=== PATIENT | female | born 1960 | race Caucasian/White ===

== ENCOUNTER 2020-07-19 08:21 | Outpatient (REF) | payer MEDICARE, MEDICAID, SELFPAY ==
[2020-07-19 09:23] LABS: MANUAL DIFF FLAG NO
[2020-07-19 09:32] LABS: Basophils Percent Auto 0.4 % (0-2); Eosinophils Absolute Auto 0.1 X10*3/uL (0.0-0.4); Eosinophils Percent Auto 1.1 % (0-4); Hematocrit 37.7 % (37-47); Hemoglobin 12.8 g/dl (12.0-16.0); Imm Gran Abs Auto 0.02 X10*3/uL (0.00-0.03); Imm Gran Pct Auto 0.4 % (0.0-0.4); Lymphocytes Absolute Auto 1.7 X10*3/uL (1.2-4.9); Mean Corpuscular Hemoglobin 32.1 pg (27.0-33.0); Mean Corpuscular Volume 94.5 fL (80-98); Mean Platelet Volume 9.9 fL (9.4-12.3); Monocytes Absolute Auto 0.4 X10*3/uL (0.1-1.2); Monocytes Percent Auto 7.6 % (2-11); Neutrophils Absolute Auto 2.6 X10*3/uL (2.0-8.3); Neutrophils Percent Auto 55.5 % (45-73); Platelet Count 206 X10*3/uL (160-400); Red Blood Count 3.99 X10*6/uL (4.20-5.50); Red Cell Distribution Width 13.9 % (11.0-16.0); White Blood Count 4.7 X10*3/uL (4.8-10.8)
[2020-07-19 10:23] LABS: Alanine Aminotransferase 25 U/L (0-31); Albumin Level 4.4 g/dL (3.5-5.0); Alkaline Phosphatase 115 U/L (39-117); Anion Gap 13 (12-20); Aspartate Amino Transferase 29 U/L (5-31); Bilirubin Direct < 0.2 mg/dL (0.0-0.5); Bilirubin Total 0.3 mg/dL (0.0-1.0); Blood Urea Nitrogen 16 mg/dL (9-16); Calcium 9.3 mg/dL (8.4-10.2); Carbon Dioxide 26 mmol/L (22-29); Chloride 106 mmol/L (96-108); Estimated Glomerular Filt Rate > 60; Glucose Random 94 mg/dL (60-115); Potassium 4.3 mmol/L (3.3-5.1); Sodium 141 mmol/L (135-145); Total Protein 6.7 g/dL (6.5-8.0)
[2020-07-20 08:08] LABS: ~HepC Num1 0.06 S/CO (0.00-0.79); ~Hepatitis C Antibody Nonreactive (Nonreactive)
[2020-07-20 17:32] LABS: Absolute CD3 Count 1370 cells/uL (840-3060); Absolute CD4 Count 715 cells/uL (490-1740); Absolute CD8 Count 645 cells/uL (180-1170); Absolute Lymphocytes 1671 cells/uL (850-3900); CD4 CD8 Ratio 1.11 (0.86-5.00); Percent CD3 Cells 82 % (57-85); Percent CD4 Cells 43 % (30-61); Percent CD8 Cells 39 % (12-42)
[2020-07-21 15:22] LABS: HIV RNA PCR Qn Copies 7090 copies/mL (NOT DETECTED); HIV RNA PCR Qn Log Copies 3.85 (NOT DETECTED)
== END 2020-07-19 08:22 | disposition home or self-care (01) ==
LOC: HO.LAB 08:21
PROVIDERS: PCP Internal Medicine; Visit Provider Internal Medicine
DX: Z21 Asymptomatic human immunodeficiency virus [HIV] infection status (principal)
CPT/HCPCS: 36415; 80048; 80076; 85025; 86359; 86360; 86803; 87536

== ENCOUNTER → 2020-08-15 09:42 | Outpatient (BNVA) | payer MEDICARE, MEDICAID, SELFPAY | PROVIDERS: Visit Provider Internal Medicine | DX: B20 Human immunodeficiency virus [HIV] disease (principal) | CPT/HCPCS: 99212 ==

== ENCOUNTER 2020-11-08 09:48 | Outpatient (REF) | payer MEDICARE, MEDICAID, SELFPAY ==
[2020-11-09 15:06] LABS: Absolute CD3 Count 1794 cells/uL (840-3060); Absolute CD4 Count 923 cells/uL (490-1740); Absolute CD8 Count 854 cells/uL (180-1170); Absolute Lymphocytes 2285 cells/uL (850-3900); CD4 CD8 Ratio 1.08 (0.86-5.00); Percent CD3 Cells 79 % (57-85); Percent CD4 Cells 40 % (30-61); Percent CD8 Cells 37 % (12-42)
[2020-11-16 19:46] LABS: HIV RNA PCR Qn Copies 26 Copies/mL; HIV RNA PCR Qn Log Copies 1.42 Log cps/mL
== END 2020-11-08 09:49 | disposition home or self-care (01) ==
LOC: HO.LAB 09:48
PROVIDERS: PCP Internal Medicine; Visit Provider Internal Medicine
DX: B20 Human immunodeficiency virus [HIV] disease (principal)
CPT/HCPCS: 36415; 86359; 86360; 87536

== ENCOUNTER → 2020-11-14 10:27 | Outpatient (BNVA) | payer MEDICARE, MEDICAID, SELFPAY | PROVIDERS: PCP Internal Medicine; Visit Provider Internal Medicine | DX: B20 Human immunodeficiency virus [HIV] disease (principal) | CPT/HCPCS: 99212 ==

== ENCOUNTER 2021-05-13 10:43 | Outpatient (REF) | payer MEDICARE, MEDICAID, SELFPAY ==
[2021-05-14 11:05] LABS: Absolute CD3 Count 1395 cells/uL (840-3060); Absolute CD4 Count 795 cells/uL (490-1740); Absolute CD8 Count 594 cells/uL (180-1170); Absolute Lymphocytes 1815 cells/uL (850-3900); CD4 CD8 Ratio 1.34 (0.86-5.00); Percent CD3 Cells 77 % (57-85); Percent CD4 Cells 44 % (30-61); Percent CD8 Cells 33 % (12-42)
[2021-05-17 14:26] LABS: HIV RNA PCR Qn Copies <20 NOT DETECTED copies/mL (NOT DETECTED); HIV RNA PCR Qn Log Copies <1.30 NOT DETECTED (NOT DETECTED)
== END 2021-05-13 10:44 | disposition home or self-care (01) ==
LOC: HO.LAB 10:43
PROVIDERS: PCP Internal Medicine; Visit Provider Internal Medicine
DX: B20 Human immunodeficiency virus [HIV] disease (principal)
CPT/HCPCS: 36415; 86359; 86360; 87536

== ENCOUNTER → 2021-05-29 10:44 | Outpatient (BNVA) | payer MEDICARE, MEDICAID, SELFPAY | PROVIDERS: PCP Internal Medicine; Visit Provider Internal Medicine | DX: B20 Human immunodeficiency virus [HIV] disease (principal); E78.00 Pure hypercholesterolemia, unspecified | CPT/HCPCS: 99212 ==

== ENCOUNTER 2021-07-20 09:47 | Outpatient (REF) | payer MEDICARE, MEDICAID, SELFPAY ==
--- NOTE | ~2021-07-20 | MM_ITS ---
EXAMINATION: MM SCREENING DIGITAL BREAST TOMOSYNTHESIS, BILATERAL CLINICAL INFORMATION: Screening. Asymptomatic. The lifetime risk of breast cancer based on the Tyrer-Cuzick Model is 5%. COMPARISON: Mammography: 02/23/2019, 10/13/2017, 09/24/2016 TECHNIQUE: Digital breast tomosynthesis is performed in both the craniocaudal and mediolateral oblique views along with computer-aided detection (CAD). Synthesized 2D images are generated from the tomosynthesis. FINDINGS: The breasts are heterogeneously dense, which may obscure small masses (ACR BI-RADS breast composition Category c). Breast tissue composition borders on extremely dense. Parenchymal pattern is similar to prior studies. There is no developing density or interval mass or abnormal calcifications. The axilla and skin contours are unremarkable. No significant changes. MM/MM tomosynthesis screening BI IMPRESSION: No mammographic evidence of malignancy. ASSESSMENT: BI-RADS 1: Negative RECOMMENDATION: Routine annual mammography screening. This patient's information was entered into a reminder system with a target due date for their next mammogram.
== END 2021-07-20 09:48 | disposition home or self-care (01) ==
LOC: HO.MAMMO 09:47
PROVIDERS: Visit Provider Internal Medicine
DX: Z12.31 Encounter for screening mammogram for malignant neoplasm of breast (principal)
CPT/HCPCS: 77063; 77067

== ENCOUNTER 2021-10-25 07:11 | Outpatient (REF) | payer MEDICARE, MEDICAID, SELFPAY ==
--- NOTE | ~2021-10-25 | XR_ITS ---
EXAMINATION: XR SHOULDER, LEFT CLINICAL INFORMATION: Pain. COMPARISON: None TECHNIQUE: AP neutral, scapular Y, and axillary views of the left shoulder. FINDINGS: The bones and soft tissues are normal. No fracture. Glenohumeral and acromioclavicular alignment is anatomic with normal joint space. No abnormal soft tissue calcifications. XR/XR shoulder LT min 2V IMPRESSION: Normal left shoulder.
== END 2021-10-25 07:12 | disposition home or self-care (01) ==
LOC: HO.HOSX 07:11
PROVIDERS: Visit Provider Physician Assistant
DX: M75.22 Bicipital tendinitis, left shoulder (principal)
CPT/HCPCS: 20610; 73030; 99202; J1040

== ENCOUNTER 2021-11-13 10:08 | Outpatient (REF) | payer MEDICARE, MEDICAID, SELFPAY ==
[2021-11-13 12:09] LABS: Alanine Aminotransferase 16 U/L (0-31); Albumin Level 4.5 g/dL (3.5-5.0); Alkaline Phosphatase 101 U/L (39-117); Aspartate Amino Transferase 22 U/L (5-31); Bilirubin Direct 0.2 mg/dL (0.0-0.5); Bilirubin Total 0.5 mg/dL (0.0-1.0); Total Protein 6.9 g/dL (6.5-8.0)
[2021-11-15 12:56] LABS: Absolute CD3 Count 1831 cells/uL (840-3060); Absolute CD4 Count 1097 cells/uL (490-1740); Absolute CD8 Count 726 cells/uL (180-1170); Absolute Lymphocytes 2368 cells/uL (850-3900); CD4 CD8 Ratio 1.51 (0.86-5.00); Percent CD3 Cells 77 % (57-85); Percent CD4 Cells 46 % (30-61); Percent CD8 Cells 31 % (12-42)
[2021-11-15 15:52] LABS: HIV RNA PCR Qn Copies NOT DETECTED copies/mL (NOT DETECTED); HIV RNA PCR Qn Log Copies NOT DETECTED (NOT DETECTED)
== END 2021-11-13 10:09 | disposition home or self-care (01) ==
LOC: HO.LAB 10:08
PROVIDERS: PCP Internal Medicine; Visit Provider Internal Medicine
DX: B20 Human immunodeficiency virus [HIV] disease (principal)
CPT/HCPCS: 36415; 80076; 86359; 86360; 87536

== ENCOUNTER → 2021-11-27 10:31 | Outpatient (BNVA) | payer MEDICARE, MEDICAID, SELFPAY | PROVIDERS: Visit Provider Internal Medicine | DX: B20 Human immunodeficiency virus [HIV] disease (principal); Z79.899 Other long term (current) drug therapy | CPT/HCPCS: 99212 ==

== ENCOUNTER 2021-12-13 09:00 | Outpatient (RCR) | payer MEDICARE, MEDICAID, SELFPAY ==
--- NOTE | 2021-10-28 11:52 | MHC.PT.EP ---
[facility] [place] Office [place] Office [place] Office [address] Raji Toscano [address] [phone] F: [phone] F: [phone] F: [phone] F: [phone] Physical Therapy Plan of Care Date of Evaluation: Date of Surgery: N/A Diagnosis: Pain in left shoulder Assessment: Tabatha is a 61 yo F referred to PT for Pain in left shoulder. She is currently unemployed but does a lot of yard work around the house and tries limiting how often she uses her L arm. She is unable to reach overhead. Her impairments include TTP over L bicep tendon, gross weakness of L shoulder muscles along with limited ROM and notable deviations in posture. These impairments limit her with functional activities. She would benefit from skilled PT to address the aforementioned impairments and improve tolerance to functional activities. Frequency and Duration: The patient will be seen 2/week for 6 weeks Short Term Goals: Patient will demonstrate a 25% increase in ROM to improve to increase functional capabilities in 3 weeks. Patient will demonstrate an increase in postural awareness to decrease tension on shoulder in 3 weeks. 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 Patient will demonstrate a 1/2 grade increase in shoulder strength to promote ability to perform functional activities without pain in 6 weeks. Treatment Plan: Modalities to reduce pain, spasms and effusion. Manual therapy to restore motion and function. Therapeutic exercise to improve strength and flexibility. Neuromuscular re-education for posture and balance. Therapeutic activities to return to functional activities of daily living. Electronically signed by: Nika Pickering PT DPT Please sign and return to therapist. Thank you for your referral.
--- NOTE | 2021-12-13 15:12 | MHC.PT.DC ---
[facility] [place] Office [place] Office [place] Office [address] Raji Toscano 140 [facility] [phone] F: [phone] F: [phone] F: [phone] F: [phone] Physical Therapy Discharge Report Diagnosis: Pain in left shoulder Date of Surgery: N/A Date of Evaluation: 10/28/21 Date of Discharge: 12/13/21 Treatments to Date: 12 Cancellations to Date: No Shows to Date: Discharge Status: Achieved Goals Improved Function Independent with HEP Discharge Summary: Tabatha has made significant improvements and has achieved all goals set for her. She is therefore being from PT. Electronically signed by: Nika Pickering PT DPT Please sign and return to therapist. Thank you for your referral.
== END 2021-12-13 15:13 | disposition home or self-care (01) ==
LOC: HO.PT 09:00
PROVIDERS: PCP Internal Medicine; Visit Provider Internal Medicine
DX: M25.512 Pain in left shoulder (principal)
CPT/HCPCS: 97110; 97112; 97140; 97161

== ENCOUNTER 2021-12-31 08:12 | Outpatient (REF) | payer MEDICARE, MEDICAID, SELFPAY ==
--- NOTE | ~2021-12-31 | MM_ITS ---
EXAMINATION: BONE DENSITOMETRY CLINICAL INDICATION: Age-related osteoporosis without current pathological fracture. COMPARISON: Previous BD dated 11/29/2019 and baseline BD dated 09/25/2006. TECHNIQUE: Using a [employer]us DXA System (software version: 13.1) manufactured by [employer], dual-energy x-ray absorptiometry was performed of the lumbar spine and left hip. The images are of good technical quality. Summary results are attached. FINDINGS: AP SPINE L1-L4: Current: BMD 0.780 g/cm2, Z-score -2.0, T-score -3.3, osteoporosis, 2.5% increase from previous, 5.7% decrease from baseline (<5% change is not significant). Prior: BMD 0.761 g/cm2. Baseline: BMD 0.827 g/cm2. LEFT FEMUR, NECK: Current: BMD 0.723 g/cm2, Z-score -1.0, T-score -2.3, osteopenia. Prior: BMD 0.692 g/cm2. Baseline: BMD 0.803 g/cm2. LEFT FEMUR, TOTAL: Current: BMD 0.766 g/cm2, Z-score -0.9, T-score -1.9, osteopenia, 1.1% increase from previous, 5.0% decrease from baseline (<5% change is not significant). Prior: BMD 0.758 g/cm2. Baseline: BMD 0.806 g/cm2. IDENTIFIED RISK FACTORS: Osteoporosis. Current smoker. Secondary osteoporosis (intestinal or bowel disease, early menopause). HISTORY OF FRACTURE: None listed. MEDICATIONS: None listed. MM/XR DEXA axial skeleton IMPRESSION: 1. DIAGNOSIS: Osteoporosis based on the lowest T-score value of -3.3 in the lumbar spine applying World Health Organization criteria. 2. 10-YEAR FRACTURE RISK PREDICTION, FRAX: According to the guidelines, FRAX calculation should only be performed on patients in the osteopenia bone density category. Therefore, FRAX was not performed on this patient. 3. Treatment Recommendations: NOF guidelines recommend consideration for treatment in postmenopausal women and men age 50 and older presenting with the following: -A hip or vertebral (clinical or morphometric) fracture. -T-score less than or equal to -2.5 at the femoral neck or spine after appropriate evaluation to exclude secondary causes. -Low bone mass at the hip or spine and a 10-year fracture probability by FRAX of greater than or equal to 3% for hip fracture or greater than or equal to 20% for major osteoporotic fracture based on the [place] adapted WHO algorithm. 4. Other Recommendations: All treatment decisions require clinical judgment and consideration of individual patient factors, including patient preferences, comorbidities, previous drug use, risk factors not captured in the FRAX model (e.g. frailty, falls, vitamin D deficiency, increased bone turnover, interval significant decline in bone density) and possible under or overestimation of fracture risk by FRAX. Additional medical evaluation for secondary cause of low bone mineral density may be appropriate. FUTURE SCAN RECOMMENDATION: People with diagnosed cases of osteoporosis or at high risk for fracture should have regular bone mineral density tests. For patients eligible for Medicare, routine testing is allowed once every 2 years. The testing frequency can be increased to one year for patients who have rapidly progressing disease, those who are receiving or discontinuing medical therapy to restore bone mass, or have additional risk factors.
== END 2021-12-31 08:13 | disposition home or self-care (01) ==
LOC: HO.MAMMO 08:12
PROVIDERS: PCP Internal Medicine; Visit Provider Internal Medicine
DX: M81.0 Age-related osteoporosis without current pathological fracture (principal)
CPT/HCPCS: 77080

== ENCOUNTER 2022-01-07 08:31 | Outpatient (REF) | payer MEDICARE, MEDICAID, SELFPAY ==
[2022-01-07 08:52] LABS: MANUAL DIFF FLAG NO
[2022-01-07 09:12] LABS: Basophils Percent Auto 0.7 % (0-2); Eosinophils Absolute Auto 0.1 X10*3/uL (0.0-0.4); Eosinophils Percent Auto 1.1 % (0-4); Imm Gran Abs Auto 0.01 X10*3/uL (0.00-0.03); Imm Gran Pct Auto 0.2 % (0.0-0.4); Lymphocytes Absolute Auto 2.1 X10*3/uL (1.2-4.9); Mean Corpuscular HGB Conc 33.3 g/dl (31.0-35.0); Mean Corpuscular Volume 99.1 fL (80.0-98.0); Mean Platelet Volume 9.4 fL (9.4-12.3); Monocytes Absolute Auto 0.4 X10*3/uL (0.1-1.2); Neutrophils Absolute Auto 2.8 x10*3/uL (2.0-8.3); Platelet Count 292 X10*3/uL (160-400); Red Blood Count 4.54 X10*6/uL (4.20-5.50); Red Cell Distribution Width 12.7 % (11.0-16.0); White Blood Count 5.4 X10*3/uL (4.8-10.8)
[2022-01-07 09:47] LABS: Alanine Aminotransferase 14 U/L (0-31); Albumin Level 4.7 g/dL (3.5-5.0); Alkaline Phosphatase 110 U/L (39-117); Anion Gap 14 (12-20); Aspartate Amino Transferase 20 U/L (5-31); Bilirubin Total 0.5 mg/dL (0.0-1.0); Blood Urea Nitrogen 15 mg/dL (9-16); Carbon Dioxide 29 mmol/L (22-29); Chloride 101 mmol/L (96-108); Cholesterol 268 mg/dL; Estimated Glomerular Filt Rate 55; Glucose Random 105 mg/dL (60-115); HDL Cholesterol 60 mg/dL; LDL Cholesterol Calculated 192 mg/dl; Potassium 5.2 mmol/L (3.3-5.1); Sodium 139 mmol/L (135-145); Total Protein 7.3 g/dL (6.5-8.0); Triglycerides 84 mg/dL
[2022-01-07 09:58] LABS: Free T4 (Free Thyroxine) 1.08 ng/dL (0.71-1.85); Thyroid Stimulating Hormone 0.81 uIU/mL (0.32-4.0); Vitamin D 25-OH Total 29.2 ng/mL (>30)
[2022-01-07 10:15] LABS: Folate 10.3 ng/mL (> or = 4.0); Vitamin B12 316 pg/mL (200-900)
== END 2022-01-07 08:32 | disposition home or self-care (01) ==
LOC: HO.LAB 08:31
PROVIDERS: PCP Internal Medicine; Visit Provider Internal Medicine
DX: E78.00 Pure hypercholesterolemia, unspecified (principal)
CPT/HCPCS: 36415; 80053; 80061; 82306; 82607; 82746; 84439; 84443; 85025

== ENCOUNTER 2022-02-05 09:46 | Outpatient (REF) | payer MEDICARE, MEDICAID, SELFPAY ==
--- NOTE | ~2022-02-05 | US_ITS ---
EXAMINATION: US RETROPERITONEAL LIMITED (AORTA) CLINICAL INFORMATION: Family history of ischemic heart disease. COMPARISON: Ultrasound aorta 06/02/2011. TECHNIQUE: Venegas-scale, color Doppler and spectral Doppler evaluation of the abdominal aorta. FINDINGS: There is atherosclerotic disease. The measurements of the aorta in maximum AP and transverse dimensions respectively are as follows: Proximal: 2.1 x 2.3 cm. Mid: 1.8 x 2.0 cm. Distal: 1.5 x 1.5 cm. PSV: 99 cm/s. The measurements of the common iliac arteries in maximum AP and TRV dimensions are as follows: Right Common Iliac Artery: 1.1 x 1.3 cm. Left Common Iliac Artery: 1.2 x 1.1 cm. US/US abdominal aortic aneurysm IMPRESSION: No abdominal aortic and iliac aneurysm.
== END 2022-02-05 09:47 | disposition home or self-care (01) ==
LOC: HO.US 09:46
PROVIDERS: Visit Provider Internal Medicine
DX: Z13.6 Encounter for screening for cardiovascular disorders (principal); Z82.49 Family history of ischemic heart disease and other diseases of the circulatory system
CPT/HCPCS: 76706

== ENCOUNTER 2022-05-15 10:43 | Outpatient (REF) | payer MEDICARE, MEDICAID, SELFPAY ==
[2022-05-16 14:08] LABS: HIV RNA PCR Qn Copies NOT DETECTED copies/mL (NOT DETECTED); HIV RNA PCR Qn Log Copies NOT DETECTED (NOT DETECTED)
[2022-05-17 12:49] LABS: Absolute CD3 Count 2101 cells/uL (840-3060); Absolute CD4 Count 1132 cells/uL (490-1740); Absolute CD8 Count 968 cells/uL (180-1170); Absolute Lymphocytes 2742 cells/uL (850-3900); CD4 CD8 Ratio 1.17 (0.86-5.00); Percent CD3 Cells 77 % (57-85); Percent CD4 Cells 41 % (30-61); Percent CD8 Cells 35 % (12-42)
== END 2022-05-15 10:44 | disposition home or self-care (01) ==
LOC: HO.LAB 10:43
PROVIDERS: PCP Internal Medicine; Visit Provider Internal Medicine
DX: B20 Human immunodeficiency virus [HIV] disease (principal)
CPT/HCPCS: 36415; 86359; 86360; 87536

== ENCOUNTER → 2022-06-02 10:44 | Outpatient (BNVA) | payer MEDICARE, MEDICAID, SELFPAY | PROVIDERS: PCP Internal Medicine; Visit Provider Internal Medicine | DX: B20 Human immunodeficiency virus [HIV] disease (principal) | CPT/HCPCS: 99212 ==

== ENCOUNTER 2022-07-21 10:09 | Outpatient (REF) | payer MEDICARE, MEDICAID, SELFPAY ==
--- NOTE | ~2022-07-21 | MM_ITS ---
EXAMINATION: MM SCREENING DIGITAL BREAST TOMOSYNTHESIS, BILATERAL CLINICAL INFORMATION: Screening. Asymptomatic. The lifetime risk of breast cancer based on the Tyrer-Cuzick Model is 5%. COMPARISON: Mammography: 07/20/2021, 02/23/2019, 10/13/2017, 09/24/2016 TECHNIQUE: Digital breast tomosynthesis is performed in both the craniocaudal and mediolateral oblique views along with computer-aided detection (CAD). Synthesized 2D images are generated from the tomosynthesis. FINDINGS: The breasts are extremely dense, which lowers the sensitivity of mammography (ACR BI-RADS breast composition Category d). Parenchymal pattern is similar to prior studies. The denser breast parenchyma is predominantly in the anterior breasts. No developing density or interval mass or architectural abnormality. There are no significant masses, abnormal calcifications, or other abnormalities. The axilla are unremarkable. MM/MM tomosynthesis screening BI IMPRESSION: No significant changes from prior exams. ASSESSMENT: BI-RADS 1: Negative RECOMMENDATION: Routine annual mammography screening. This patient's information was entered into a reminder system with a target due date for their next mammogram.
== END 2022-07-21 10:10 | disposition home or self-care (01) ==
LOC: HO.MAMMO 10:09
PROVIDERS: PCP Internal Medicine; Visit Provider Internal Medicine
DX: Z12.31 Encounter for screening mammogram for malignant neoplasm of breast (principal)
CPT/HCPCS: 77063; 77067

== ENCOUNTER 2022-08-19 11:07 | Outpatient (REF) | payer MEDICARE, MEDICAID, SELFPAY ==
[2022-08-19 11:37] LABS: MANUAL DIFF FLAG NO
[2022-08-19 12:18] LABS: Basophils Percent Auto 0.7 % (0-2); Eosinophils Absolute Auto 0.1 X10*3/uL (0.0-0.4); Eosinophils Percent Auto 1.4 % (0-4); Hematocrit 42.1 % (37.0-47.0); Imm Gran Abs Auto 0.01 X10*3/uL (0.00-0.03); Imm Gran Pct Auto 0.2 % (0.0-0.4); Lymphocytes Absolute Auto 2.6 X10*3/uL (1.2-4.9); Lymphocytes Percent Auto 44.4 % (20-40); Mean Corpuscular HGB Conc 33.3 g/dl (31.0-35.0); Mean Corpuscular Hemoglobin 33.3 pg (27.0-33.0); Mean Corpuscular Volume 100.2 fL (80.0-98.0); Monocytes Absolute Auto 0.3 X10*3/uL (0.1-1.2); Monocytes Percent Auto 5.3 % (2-11); Neutrophils Absolute Auto 2.8 x10*3/uL (2.0-8.3); Platelet Count 259 X10*3/uL (160-400); Red Cell Distribution Width 12.9 % (11.0-16.0); White Blood Count 5.9 X10*3/uL (4.8-10.8)
[2022-08-19 13:05] LABS: Alanine Aminotransferase 15 U/L (0-31); Albumin Level 4.2 g/dL (3.5-5.0); Alkaline Phosphatase 103 U/L (39-117); Anion Gap 13 (12-20); Aspartate Amino Transferase 21 U/L (5-31); Bilirubin Direct < 0.2 mg/dL (0.0-0.5); Bilirubin Total 0.4 mg/dL (0.0-1.0); Blood Urea Nitrogen 12 mg/dL (9-16); Calcium 9.2 mg/dL (8.4-10.2); Carbon Dioxide 27 mmol/L (22-29); Chloride 104 mmol/L (96-108); Cholesterol 188 mg/dL; Estimated Glomerular Filt Rate > 60; Glucose Random 104 mg/dL (60-115); HDL Cholesterol 49 mg/dL; LDL Cholesterol Calculated 118 mg/dl; Potassium 4.9 mmol/L (3.3-5.1); Sodium 139 mmol/L (135-145); Total Protein 6.5 g/dL (6.5-8.0); Triglycerides 109 mg/dL
[2022-08-21 13:47] LABS: Absolute CD3 Count 1962 cells/uL (840-3060); Absolute CD4 Count 1181 cells/uL (490-1740); Absolute CD8 Count 779 cells/uL (180-1170); Absolute Lymphocytes 2466 cells/uL (850-3900); CD4 CD8 Ratio 1.52 (0.86-5.00); Percent CD3 Cells 80 % (57-85); Percent CD4 Cells 48 % (30-61); Percent CD8 Cells 32 % (12-42)
[2022-08-22 17:44] LABS: HIV RNA PCR Qn Copies NOT DETECTED copies/mL (NOT DETECTED); HIV RNA PCR Qn Log Copies NOT DETECTED (NOT DETECTED)
== END 2022-08-19 11:08 | disposition home or self-care (01) ==
LOC: HO.LAB 11:07
PROVIDERS: Internal Medicine; PCP Internal Medicine; Visit Provider Internal Medicine
DX: B20 Human immunodeficiency virus [HIV] disease (principal); E78.00 Pure hypercholesterolemia, unspecified
CPT/HCPCS: 36415; 80053; 80061; 80076; 85025; 86359; 86360; 87536

== ENCOUNTER 2022-11-13 08:02 | Outpatient (REF) | payer OTHER, MEDICAID, SELFPAY ==
[2022-11-13 09:46] LABS: Anion Gap 13 (12-20); Blood Urea Nitrogen 17 mg/dL (9-16); Calcium 10.2 mg/dL (8.4-10.2); Carbon Dioxide 28 mmol/L (22-29); Chloride 103 mmol/L (96-108); Estimated Glomerular Filt Rate > 60; Glucose Random 103 mg/dL (60-115); Sodium 139 mmol/L (135-145)
== END 2022-11-13 08:03 | disposition home or self-care (01) ==
LOC: HO.LAB 08:02
PROVIDERS: PCP Internal Medicine; Visit Provider Internal Medicine
DX: B20 Human immunodeficiency virus [HIV] disease (principal)
CPT/HCPCS: 36415; 80048

== ENCOUNTER 2022-12-01 11:06 | Outpatient (AMB) | payer OTHER, MEDICAID, SELFPAY ==
--- NOTE | 2022-12-01 11:22 | A.OFFVIS_ITS ---
Intake Vital Signs 12/01/22 11:26 Height 5 ft 9 in Weight 133 lb BMI 19.6 BP 100/60 Pulse 90 Pulse Oximetry (%) 93 Intake Visit Reasons: F/u 6 mth.Lab Allergies barium sulfate Allergy (Unknown, Verified 12/01/22 11:22) suicide ideation gabapentin Allergy (Unknown, Verified 12/01/22 11:22) Unknown varenicline [From CHANTIX] Allergy (Unknown, Verified 12/01/22 11:22) DEPRESSION, suicidal ideation HPI F/u 6 mth.Lab HPI Details She is here for HIV care. She is interested in Cabenuva injection. She had labs 08/19 and CD4 count is 1181 and viral load undetectable. [facility] Medical History Asthma Bipolar disorder Cough HIV (human immunodeficiency virus infection) HPV test positive Hypercholesterolemia Mixed incontinence Tobacco abuse Ulcerative colitis Surgical History History of colonoscopy History of hemorrhoidectomy Family History Father No problems noted. Mother No problems noted. Social History Housing: Apartment Alcohol intake: never Patient Tobacco Use Status: Current everyday Tobacco user Tobacco use type: Cigarette Cigarette Packs Per Day: 1 Cigarettes Per Day: 18 e-Cigarette/Vaping Use: Never Used Second Hand Smoke Exposure: No service: No Current occupational status: unemployed Cognitive needs: No Hearing needs: No Vision needs: No Review of Systems Const All systems reviewed & are unremarkable except as noted in HPI and below Physical Exam Vital Signs: Last Vital Signs Pulse 90 12/01/22 11:26 BP 100/60 12/01/22 11:26 Pulse Ox 93 12/01/22 11:26 BMI result Body Mass Index 19.6 Const General: cooperative Orientation/consciousness: patient oriented x3 HEENT Head: Yes normal to inspection Mouth: Normal oral and palatal mucosa present Eyes General: appearance normal, both eyes and all related structures Pupils: Equal, round and reactive pupils present Resp Effort & Inspection: normal respiratory effort Cardio Rate: regular rate Rhythm: regular rhythm GI Palpation (GI): Soft to palpation and nontender General: Yes no CVA tenderness Back/Spine/Pelvis Back: no CVA tenderness Skin General skin exam: no rashes or lesions noted Neuro General: patient oriented x3 Cranial nerves: Yes CN's II-XII intact bilaterally and Yes Equal, round and reactive pupils present Extrem General: Yes normal to inspection Psych Appearance: grossly normal Assessment & Plan Assessment & Plan (1) HIV (human immunodeficiency virus infection): Comment: She is doing well and has no concerns. Code(s): B20 - Human immunodeficiency virus [HIV] disease Plan: Continue Biktarvy Check proviral DNA as well as Hepatitis B serologies check if candidate for Cabenuva. Orders: Orders Other Ref Test - Misc 12/01/22 B20 - Human immunodeficiency virus [HIV] disease Hepatitis B Surface Antibody 12/01/22 B20 - Human immunodeficiency virus [HIV] disease Hepatitis B Viral DNA Qn 12/01/22 B20 - Human immunodeficiency virus [HIV] disease Hepatitis B Core Antibody 12/01/22 B20 - Human immunodeficiency virus [HIV] disease Hepatitis B Surface Antigen 12/01/22 B20 - Human immunodeficiency virus [HIV] disease Hepatitis C Antibody 12/01/22 B20 - Human immunodeficiency virus [HIV] disease CT chest wo con - High Res 12/01/22 B20 - Human immunodeficiency virus [HIV] disease Coding Level of Care Code Est Pt Level 3 (19436) Diagnoses HIV (human immunodeficiency virus infection) B20
[2022-12-01 11:26] VITALS: BP 100/60; PULSE 90; O2SAT 93; BMI 19.6
== END 2022-12-01 12:45 | disposition home or self-care (01) ==
LOC: HO.HID 11:06
PROVIDERS: PCP Internal Medicine; Visit Provider Internal Medicine
DX: B20 Human immunodeficiency virus [HIV] disease (principal)
CPT/HCPCS: 99213

== ENCOUNTER → 2022-12-01 11:06 | Outpatient (BNVA) | payer OTHER, MEDICAID, SELFPAY | PROVIDERS: PCP Internal Medicine; Visit Provider Internal Medicine | DX: B20 Human immunodeficiency virus [HIV] disease (principal) | CPT/HCPCS: 99212 ==

== ENCOUNTER 2023-01-13 08:55 | Outpatient (AMB) | payer OTHER, MEDICAID, SELFPAY ==
[2023-01-13 09:06] VITALS: BP 120/82; PULSE 74; O2SAT 97; BMI 18.8
--- NOTE | 2023-01-13 09:06 | A.OFFPC_ITS ---
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: No Accompanied by: Self / Same As Patient Allergies barium sulfate Allergy (Unknown, Verified 01/13/23 09:07) suicide ideation gabapentin Allergy (Unknown, Verified 01/13/23 09:07) Unknown varenicline [From CHANTIX] Allergy (Unknown, Verified 01/13/23 09:07) DEPRESSION, suicidal ideation Tobacco use date assessed: 01/13/23 Dental Screening Dental Screen Date: 01/13/23 Did you have a dental visit in the last 12 months?: Yes Did you have a dental problem in the last 6 months where you did not have access to dental care?: No Was dental information given to patient?: Patient has dentist [facility] Medical History Asthma Bipolar disorder Cough HIV (human immunodeficiency virus infection) HPV test positive Hypercholesterolemia Mixed incontinence Tobacco abuse Ulcerative colitis Surgical History History of colonoscopy History of hemorrhoidectomy Family History Father No problems noted. Mother No problems noted. Social History Housing: Apartment Alcohol intake: never Patient Tobacco Use Status: Current everyday Tobacco user Tobacco use type: Cigarette Cigarette Packs Per Day: 1 Cigarettes Per Day: 18 e-Cigarette/Vaping Use: Never Used Second Hand Smoke Exposure: No service: No Current occupational status: unemployed Cognitive needs: No Hearing needs: No Vision needs: No Questionnaire PHQ-9 Over the last 2 weeks, how often have you been bothered by any of the following problems? 1. Little interest or pleasure in doing things: not at all 2. Feeling down, depressed, or hopeless: several days 3. Trouble falling or staying asleep, or sleeping too much: not at all 4. Feeling tired or having little energy: not at all 5. Poor appetite or overeating: not at all 6. Feeling bad about yourself - or that you are a failure or have let yourself or your family down: not at all 7. Trouble concentrating on things, such as reading the newspaper or watching television: not at all 8. Moving or speaking so slowly that other people could have noticed. Or the opposite - being so fidgety or restless that you have been moving around a lot more than usual: not at all 9. Thoughts that you would be better off or of hurting yourself in some way: not at all Total score: 1 Depression Screening Interpretation: Negative 68116 - PHQ-9 Billing: Yes Source: Developed by Drs. Marcus Gonzalez, Chelsea Alcantara, Facundo Barnes and colleagues, with an educational arsen from [employer]. Thrive Questionnaire Date Thrive assessed: 01/13/23 I am a: Patient What is your living situation today?: I have a steady place to live Within the past 12 months, did the food you bought not last and you didn't have the money to get more?: Never true Within the past 12 months, did you worry whether your food would run out before you got money to buy more?: Never true Do you have trouble paying for medicines?: No Do you have trouble getting transportation to medical appointments?: No Do you have trouble paying your heating and electricity bill?: No Do you have trouble taking care of your child, family member or friend?: No Do you have trouble with day-to-day activities such as bathing, preparing meals, shopping, managing finances, etc.?: No Are you currently unemployed and looking for a job?: No Are you interested in more education?: No Please select the resources that you would like help with: None Currently or been in a relationship where the following occur: no concerns reported AUDIT C Alcohol Use Questionnaire (AUDIT-C) 1. How often do you have a drink containing alcohol?: Monthly or less 2. How many drinks containing alcohol do you have on a typical day when you are drinking?: 1 or 2 Total Score: 1 Score Reviewed/Action Taken: No PHAM-7 AMB Questionnaire PHAM-7 Date PHAM - 7 assessed: 01/13/23 Feeling nervous, anxious, or on edge: 0 = Not at all Not being able to stop or control worryin = Several days Worrying too much about different things: 0 = Not at all Trouble relaxin = Not at all Being so restless that it is hard to sit still: 0 = Not at all Becoming easily annoyed or irritable: 0 = Not at all Feeling afraid as if something awful might happen: 0 = Not at all Total PHAM-7 score (0-4 normal; 5-9 mild; 10-14 moderate; 15-21 severe): 1 Source: Developed by Drs. Marcus Gonzalez, Chelsea Alcantara, Facundo Barnes and colleagues, with an educational arsen from [employer]. PHAM-7 Assessment Billing PHAM-7 Assessment Tool: PHAM-7 Assessment 99717 Physical exam (Primary Care) Tobacco/Smoking Status: Tobacco use Status Tobacco use date assessed 09/05/22 09/05/22 10:08 Patient Tobacco Use Status Current everyday Tobacco 09/05/22 10:12 Tobacco use type Cigarette 09/05/22 10:12 e-Cigarette/Vaping Use Never Used 09/05/22 10:12 Depression Screening Interpretation: Negative Thrive Assessment: Date of Thrive Assessment Date Thrive assessed 09/05/22 09/05/22 10:08 Currently or been in a relationship where the following occur: no concerns reported Coding Diagnoses Additional Codes PHAM-7 Assessment Billing - PHAM-7 Assessment Tool: PHAM-7 Assessment [id number] ([id number])
--- NOTE | 2023-01-13 09:06 | AM.OFFVISMDC ---
Intake Vital Signs 01/13/23 09:06 01/13/23 09:06 Height 5 ft 9 in 5 ft 9 in Weight 127 lb BMI 18.8 BP 120/82 Blood Pressure Location Lt brachial Lt brachial Position Sitting Sitting Pulse 74 Pulse Source Pulse Oximeter Pulse Oximeter Pulse Oximetry (%) 97 Oxygen Delivery Method Room Air Room Air Intake Visit Reasons: [facility] Intake Note: Patient here for subsequent annual wellness visit Software Quality Specialist Required: No Accompanied by: Self / Same As Patient Allergies barium sulfate Allergy (Unknown, Verified 01/13/23 09:19) suicide ideation gabapentin Allergy (Unknown, Verified 01/13/23 09:19) Unknown varenicline [From CHANTIX] Allergy (Unknown, Verified 01/13/23 09:19) DEPRESSION, suicidal ideation Medication List - Last Reconciled 01/13/23 by DENICE Hernandez albuterol sulfate 90 mcg/actuation (Ventolin HFA) 2 puffs inhalation Q6H PRN jykusteae-zzghtrfm-dtxcisp ala 50-200-25 mg (Biktarvy) 1 tab PO DAILY 90 days clonazepam 1 mg PO DAILY lamotrigine 200 mg PO DAILY naproxen 500 mg PO BID 90 days simvastatin 5 mg PO BEDTIME HPI [facility] HPI Details Patient is a 62-year-old female who presents today for subsequent wellness visit.? Patient of Dr. Chin. Today we discussed patient's need for pneumonia vaccine, she would like to hold off on this. Patient reports that she has an upcoming colonoscopy this year with Nell SHIN. Mammogram normal 07/2022. Bone density screen 12/2021 which showed osteoporosis. Patient will be having a chest CT scan due to smoking - this was ordered by Infectious Disease. Patient did have a negative Pap smear 2019. [place] of care was reviewed with the patient and she was provided with a screening schedule.? Patient is not interested at this time in the end of life planning conversation. [facility] Medical History Asthma Bipolar disorder Cough HIV (human immunodeficiency virus infection) HPV test positive Hypercholesterolemia Mixed incontinence Tobacco abuse Ulcerative colitis Surgical History History of colonoscopy History of hemorrhoidectomy Family History Father No problems noted. Mother No problems noted. Social History Housing: Apartment Alcohol intake: never Patient Tobacco Use Status: Current everyday Tobacco user Tobacco use type: Cigarette Cigarette Packs Per Day: 1 Cigarettes Per Day: 18 e-Cigarette/Vaping Use: Never Used Second Hand Smoke Exposure: No service: No Current occupational status: unemployed Cognitive needs: No Hearing needs: No Vision needs: No Questionnaire Medicare Wellness Checkup What is your age?: 65-69 (62) What gender do you identify with?: female During the past 4 weeks, how much have you been bothered by emotional problems such as feeling anxious, depressed, irritable, sad or downhearted, and blue?: quite a bit During the past 4 weeks, has your physical & emotional health limited your social activities with family, friends, neighbors, or groups?: moderately During the past 4 weeks, how much bodily pain have you generally had?: moderate pain During the past 4 weeks, was someone available to help you if you needed & wanted help?: yes, a little During the past 4 weeks, what was the hardest physical activity you could do for at least 2 minutes?: heavy Can you get to places out of walking distance without help? (For eg., can you travel alone on buses, taxis or drive your car?): Yes Can you go shopping for groceries or clothes without someone's help?: Yes Can you prepare your own meals?: Yes Can you do your housework without help?: Yes Because of any health problems, do you need the help of another person with your personal care needs such as eating, bathing, dressing or getting around the house?: No Can you handle your own money without help?: Yes During the past 4 weeks, how would you rate your health in general?: good During the past 4 weeks how have things been going for you?: pretty well Are you having difficulties driving your car?: no Do you always fasten your seat belt when you are in a car?: yes, usually During past 4 weeks, have you been bothered by the following: never: Sexual problems?, Teeth or denture problems? and Problems using the telephone?, seldom: Falling or dizzy when standing up, sometimes: Trouble eating well? and often: Tiredness or fatigue? Have you fallen 2 or more times in the past year?: Yes Are you afraid of falling?: Yes Are you a smoker?: yes, and I might quit During the past 4 weeks, how many drinks of wine, beer, or other alcoholic beverages did you have?: no alcohol at all Do you exercise for about 20 minutes 3 or more times a week?: no, I usually do not exercise this much Have you been given information to help with the following?: yes: Keeping track of your medications? and no: Hazards in your house that might hurt you? How often do you have trouble taking medicines the way you have been told to take them?: I always take medicine as prescribed How confident are you that you can control & manage most of your health problems?: very confident What is your race?: White Mini Mental State Exam (MMSE) Orientation What is the (year) (season) (date) (day) (month)?: year, season, date, day and month Score Score: 5 Activity of Daily Living Bathing - sponge bath, tub bath or shower: receives no assistance (gets in/out by self, if usual bathing means Dressing - getting clothes from closets & drawers, including inner/outer garments & fasteners.: gets clothes & gets completely dressed without help Toileting - going to the 'toilet room' for urine/bowel elimination & cleaning self/arranging clothes: goes to toilet room, cleans self, arranges clothes without help Transfer: moves in & out of bed and chair without help (may use support object) Continence: controls urination/bowel movements completely by self Feeding: feeds self without help Total Score: 0 Information obtained from: patient Using telephone: independent Traveling: independent Shopping: independent Preparing meals: independent Housework: independent Taking medicine: independent Managing money: independent PHQ-9 Over the last 2 weeks, how often have you been bothered by any of the following problems? 1. Little interest or pleasure in doing things: several days 2. Feeling down, depressed, or hopeless: several days 3. Trouble falling or staying asleep, or sleeping too much: not at all 4. Feeling tired or having little energy: more than half the days 5. Poor appetite or overeating: more than half the days 6. Feeling bad about yourself - or that you are a failure or have let yourself or your family down: nearly every day 7. Trouble concentrating on things, such as reading the newspaper or watching television: not at all 8. Moving or speaking so slowly that other people could have noticed. Or the opposite - being so fidgety or restless that you have been moving around a lot more than usual: not at all 9. Thoughts that you would be better off or of hurting yourself in some way: not at all Total score: 9 Depression Screening Interpretation: Negative 79868 - PHQ-9 Billing: Yes Source: Developed by Drs. Marcus Gonzalez, Chelsea Alcantara, Facundo Barnes and colleagues, with an educational arsen from [employer]. PHAM-7 AMB Questionnaire PHAM-7 Date PHAM - 7 assessed: 01/13/23 Feeling nervous, anxious, or on edge: 2 = More than half the days Not being able to stop or control worryin = Not at all Worrying too much about different things: 2 = More than half the days Trouble relaxin = Not at all Being so restless that it is hard to sit still: 0 = Not at all Becoming easily annoyed or irritable: 1 = Several days Feeling afraid as if something awful might happen: 0 = Not at all Total PHAM-7 score (0-4 normal; 5-9 mild; 10-14 moderate; 15-21 severe): 5 Source: Developed by Drs. Marcus Gonzalez, Chelsea Alcantara, Facundo Barnes and colleagues, with an educational arsen from [employer]. PHAM-7 Assessment Billing PHAM-7 Assessment Tool: PHAM-7 Assessment 47075 Physical Exam Vital Signs: Last Vital Signs Pulse 74 01/13/23 09:06 BP 120/82 01/13/23 09:06 Pulse Ox 97 01/13/23 09:06 Oxygen Delivery Method Room Air 01/13/23 09:06 BMI result Body Mass Index 18.8 Const General: cooperative and no acute distress Orientation/consciousness: patient oriented x3 HEENT Other: Whisper test: pass Neuro Other: Balance: Normal Get up and walk: able to Romberg: negative Tandem gait: able to General: patient oriented x3 Assessment & Plan Assessment & Plan (1) HIV (human immunodeficiency virus infection): Comment: She is doing well and has no concerns. Code(s): B20 - Human immunodeficiency virus [HIV] disease Plan: Continue to follow-up with Dr. Robert (2) Hypercholesterolemia: Code(s): E78.00 - Pure hypercholesterolemia, unspecified Plan: Low-cholesterol diet Simvastatin at bedtime (3) Osteoporosis: Code(s): M81.0 - Age-related osteoporosis without current pathological fracture Plan: Bone density screen 12/2021 which showed osteoporosis (4) Annual physical exam: Code(s): Z00.00 - Encounter for general adult medical examination without abnormal findings (5) Asthma: Code(s): J45.909 - Unspecified asthma, uncomplicated Plan: Stable Continue albuterol inhaler as needed (6) Tobacco abuse: Code(s): Z72.0 - Tobacco use Plan: Encouraged to stop (7) Bipolar disorder: Comment: Has counseling through [facility] (Nasima villanueva , Psychiatry Dr. Hutchins)(12/2021) Code(s): F31.9 - Bipolar disorder, unspecified Plan: Continue to follow-up with psychiatry and therapist at [facility] Continue current treatment (8) Ulcerative colitis: Code(s): K51.90 - Ulcerative colitis, unspecified, without complications Plan: Continue to follow-up with Dr. Cam Patient reports she will be having colonoscopy in this year Quality Reporting (2019) Depression/Bipolar (159/160/161/177) PHQ-9: Total score: 9 Coding Level of Care Code Medicare Subsequent (G0439) Diagnoses HIV (human immunodeficiency virus infection) B20 Hypercholesterolemia E78.00 Osteoporosis M81.0 Annual physical exam Z00.00 Asthma J45.909 Tobacco abuse Z72.0 Bipolar disorder F31.9 Ulcerative colitis K51.90 Additional Codes PHAM-7 Assessment Billing - PHAM-7 Assessment Tool: PHAM-7 Assessment [id number] ([id number]) Advance Care Planning Advance Care Planning discussion: Declined forms Date of discussion: 01/13/23 Who was present: pt and surface grinder Actual minutes spent: 1 Did not discuss due to Cultural/Spiritual beliefs: No
== END 2023-01-13 09:34 | disposition home or self-care (01) ==
PROVIDERS: Visit Provider Nurse Practitioner Family
DX: Z00.00 Encounter for general adult medical examination without abnormal findings (principal); B20 Human immunodeficiency virus [HIV] disease; J45.909 Unspecified asthma, uncomplicated; F31.9 Bipolar disorder, unspecified; K51.90 Ulcerative colitis, unspecified, without complications; E78.00 Pure hypercholesterolemia, unspecified; M81.0 Age-related osteoporosis without current pathological fracture; Z72.0 Tobacco use
CPT/HCPCS: G0439

== ENCOUNTER 2023-01-22 09:51 | Outpatient (REF) | payer OTHER, MEDICAID, SELFPAY ==
--- NOTE | ~2023-01-22 | CT_ITS ---
EXAMINATION: CT CHEST WITHOUT CONTRAST CLINICAL INFORMATION: HIV. COMPARISON: None TECHNIQUE: Multidetector volumetric CT imaging of the chest was obtained without intravenous contrast using high-resolution technique. Axial MIP volume rendering provided. Sagittal and coronal reformatted images were obtained. This CT examination was performed using dose optimization techniques as appropriate, variously including the following: *Automated exposure control *Adjustment of mA and/or kV according to patient size (this includes techniques or standardized protocols for targeted exams where dose is matched to indication/reason for exam; i.e. extremities or head) *Use of iterative reconstruction technique DLP: 100 mGy-cm FINDINGS: LUNGS: Mild to moderate bullous, predominantly centrilobular emphysema with the largest bullae the bases measuring up to approximately 4.5 cm. Minimal biapical fibrotic changes. The interstitial otherwise appears unremarkable. No focal infiltrate identified. No suspicious lung nodules seen. Patent central bronchi. MEDIASTINUM: The mediastinum appears unremarkable. No evidence of adenopathy by size criteria. CORONARY ARTERY CALCIFICATION: None. PLEURA: There is no pleural effusion. No pleural mass or thickening. AXILLA: No lymphadenopathy by size criteria. UPPER ABDOMEN: Unremarkable. OSSEOUS STRUCTURES: Decreased bone mineral density. Degenerative changes of the spine. CT/CT chest wo con - High Res IMPRESSION: Mild to moderate bullous, predominantly centrilobular emphysema with the largest bullae the bases measuring up to approximately 4.5 cm. Minimal biapical fibrotic changes. The interstitial otherwise appears unremarkable.
== END 2023-01-22 09:52 | disposition home or self-care (01) ==
LOC: HO.CT 09:51
PROVIDERS: PCP Internal Medicine; Visit Provider Internal Medicine
DX: B20 Human immunodeficiency virus [HIV] disease (principal)
CPT/HCPCS: 71250

== ENCOUNTER 2023-04-29 08:27 | Day surgery (SDC) | payer OTHER, MEDICAID, SELFPAY ==
[2023-04-27 14:40] VITALS: BMI 18.3
--- NOTE | 2023-04-28 08:56 | HO.ANESPROP2 ---
Documented by User: Tamiko Sunshine NP 04/28/23 08:57 HPI - Anesthesia Eval Consult details Narrative: 62yo F for Colonoscopy PMFSH Active Problems Active Problems: All Active Problems (Updated 12/03/22 @ 12:54 by Bonny Robert MD) HIV (human immunodeficiency virus infection) (Acute) Cough (Acute) Family history of abdominal aortic aneurysm (AAA) (Acute) Biceps tendonitis on left (Acute) Benign positional vertigo (Acute) Shoulder pain, left (Acute) Numbness of left hand (Acute) Breast cancer screening by mammogram (Acute) Hypercholesterolemia (Acute) Osteoporosis (Acute) Guaiac positive stools (Acute) Annual physical exam (Acute) HPV test positive (Acute) Mixed incontinence (Acute) Asthma (Acute) Tobacco abuse (Acute) Bipolar disorder (Acute) Ulcerative colitis (Acute) Past Medical History Medical History Cough HPV test positive Mixed incontinence Asthma Tobacco abuse Hypercholesterolemia HIV (human immunodeficiency virus infection) Bipolar disorder Ulcerative colitis Family History Family History Father No problems noted. Mother No problems noted. Surgical History Surgical History History of colonoscopy History of hemorrhoidectomy Social History Social History Housing: Apartment Alcohol intake: never Patient Tobacco Use Status: Current someday Tobacco user Tobacco use type: Cigarette Cigarette Packs Per Day: 1 Cigarettes Per Day: 15 e-Cigarette/Vaping Use: Never Used Second Hand Smoke Exposure: No Use of substances other than those prescribed or required for medical reasons: Yes Substance Use Frequency: Daily Are you DNR?: No Advance Directives: No Advance Directives Information Provided: Yes Patient : No service: No Current occupational status: unemployed Cognitive needs: No Hearing needs: No Vision needs: No Meds Allergies Allergy/AdvReac Type Severity Reaction Status Date / Time barium sulfate Allergy Severe suicide Verified 04/27/23 14:38 ideation varenicline [From CHANTIX] Allergy Severe DEPRESSION, Verified 04/27/23 14:38 suicidal ideation gabapentin Allergy Unknown Unknown Verified 01/13/23 09:19 Home Medications Medication Instructions Recorded Confirmed Last Taken Type clonazepam 1 mg tablet 1 mg PO DAILY 01/07/21 04/27/23 Unknown History lamotrigine 200 mg tablet 200 mg PO DAILY 01/07/21 04/27/23 Unknown History Exam Height,Weight and Vital Signs: Height 5 ft 9.5 in Weight 57.153 kg Pertinent Lab Results Pertinent Lab Results: Laboratory Tests 08/19/22 11/13/22 11:36 08:02 WBC 5.9 Hgb 14.0 Hct 42.1 Plt Count 259 Sodium 139 Potassium 5.0 Chloride 103 Carbon Dioxide 28 BUN 17 H Creatinine 0.85 Assessment and Plan Assessment Anesthesia Assessment: Chart Reviewed Documented by User: Sobia Juan MD 04/29/23 09:45 PMFSH Past Medical History Medical History Cough HPV test positive Mixed incontinence Asthma Tobacco abuse Hypercholesterolemia HIV (human immunodeficiency virus infection) Bipolar disorder Ulcerative colitis Family History Family History Father No problems noted. Mother No problems noted. Family history of problems with anesthesia: No Surgical History Surgical History History of colonoscopy History of hemorrhoidectomy History of Problems with Anesthesia: No Social History Social History Housing: Apartment Alcohol intake: never Patient Tobacco Use Status: Current someday Tobacco user Tobacco use type: Cigarette Cigarette Packs Per Day: 1 Cigarettes Per Day: 15 e-Cigarette/Vaping Use: Never Used Second Hand Smoke Exposure: No Use of substances other than those prescribed or required for medical reasons: Yes Substance Use Frequency: Daily Are you DNR?: No Advance Directives: No Advance Directives Information Provided: Yes Patient : No service: No Current occupational status: unemployed Cognitive needs: No Hearing needs: No Vision needs: No Meds Allergies Allergy/AdvReac Type Severity Reaction Status Date / Time barium sulfate Allergy Severe suicide Verified 04/27/23 14:38 ideation varenicline [From CHANTIX] Allergy Severe DEPRESSION, Verified 04/27/23 14:38 suicidal ideation gabapentin Allergy Unknown Unknown Verified 01/13/23 09:19 Home Medications Medication Instructions Recorded Confirmed Last Taken Type clonazepam 1 mg tablet 1 mg PO DAILY 01/07/21 04/27/23 Unknown History lamotrigine 200 mg tablet 200 mg PO DAILY 01/07/21 04/27/23 Unknown History Exam Airway Mallampati Class: II TM Dist: >3cm Neck ROM: Full Heart: rrr Assessment and Plan Assessment Anesthesia Assessment: Anesthesia Plan Discussed and Smoking Cess. Discussed (smokerand marihuana user) Final Anesthetic Review Family History of Problems with Anesthesia: No History of Problems with Anesthesia: No NPO: Yes ASA Class: III Final Preanesthetic Review: No Changes in Pt Med Stat, Meds/Allgs Chart Reviewed, Consent Obtained/Reviewed and Anes Risks/Benef Reviewed Patient Risk: Intermediate Procedure Risk: Low Anesthetic Plan Anesthetic Plan: MAC: Disposition: Standard PACU
[2023-04-29] MEDS: Sodium Phosphate,Mono-Dibasic 133 ML ENEMA PR (08:42)
[2023-04-29 08:51] VITALS: BP 122/65; PULSE 70; RESP 18; TEMP 36.3; O2SAT 99; BMI 17.9
[2023-04-29] MEDS: Lactated Ringers 1,000 ML 100 ML IVCONT (09:06)
[2023-04-29 10:22] VITALS: BP 111/67; PULSE 79; RESP 18; TEMP 36.3; O2SAT 96
--- NOTE | 2023-04-29 10:24 | P.BOP_ITS ---
Brief Operative Note Date of Service: 04/29/23 Pre-op diagnosis: Ulcerative colitis, screening Post-op diagnosis: other (Same, R/O Dysplasia) Procedure: Colonoscopy to the cecum and TI with biopsies Surgeon: Marcus Cam MD Anesthesia: MAC Was an Marine Diesel Mechanic used for this Procedure?: No Estimated blood loss (mL): 2.0 Pathology: other (A. Ascending colon B. Transverse colon C. Descending colon D. Sigmoid colon E. Rectum) Condition: stable Disposition: PACU
[2023-04-29 10:37] VITALS: BP 130/78; PULSE 64; RESP 18; TEMP 36.3; O2SAT 98
--- NOTE | 2023-04-29 11:46 | OP_ITS ---
DATE OF SERVICE: 04/29/2023 SURGEON: Marcus Cam MD INDICATIONS: The patient presents for evaluation of longstanding ulcerative colitis and colorectal cancer screening. Full consent has been obtained from her for this, including risks of bleeding and perforation. PREOPERATIVE DIAGNOSIS: Longstanding ulcerative colitis and colorectal cancer screening. POSTOPERATIVE DIAGNOSIS: Longstanding ulcerative colitis and colorectal cancer screening, rule out dysplasia, mild sigmoid diverticulosis, internal and external hemorrhoids. PROCEDURE PERFORMED: Colonoscopy to the cecum and terminal ileum with multiple biopsies. ESTIMATED BLOOD LOSS: COMPLICATIONS: ANESTHESIA: Medication Used: Monitored anesthesia care. ASSISTANTS: SPECIMENS: DESCRIPTION OF PROCEDURE: The patient was placed in the left lateral decubitus position. The digital rectal exam revealed external hemorrhoids. The Olympus video pediatric colonoscope was entered into the rectum and advanced easily to the cecum. Once in the cecum, I did identify a normal-appearing cecal pouch with appendiceal orifice and a normal-appearing ileocecal valve. The terminal ileum was cannulated and appeared normal. Scope was withdrawn back in the colon. The entire cecum and ileocecal valve appeared normal. There was transillumination of light deep in the right lower quadrant. The scope was slowly withdrawn, assessing all mucosal surfaces carefully. Preparation was excellent. I did not visualize any sign of any active colitis, polyps, nor angiodysplasia. There were occasional diverticula in the sigmoid colon. There were some areas of scarring in the sigmoid and rectum. Multiple biopsies were obtained in the ascending colon, transverse colon, descending colon, sigmoid colon and rectum. In the rectum, scope was retroflexed, visualizing internal hemorrhoids, but no other pathology. The rectal mucosa appeared normal. The scope was straightened and withdrawn from the patient. She tolerated the procedure well and was returned to the recovery area in stable condition. IMPRESSION: 1. History of ulcerative colitis, rule out dysplasia. 2. Mild diverticulosis. 3. Internal and external hemorrhoids. PLAN: The results of the biopsy will be checked. Assuming there is no dysplasia, I would recommend a repeat colonoscopy in 3 years for further screening and surveillance. She was advised not to use any aspirin and NSAIDs for at least 1 week. If things are stable, she will see me otherwise on a p.r.n. basis, as she is presently not on any specific medication for the colitis and things have been stable in that regard. MD KANIKA Juarez/FABIENNE / [phone]
== END 2023-04-29 11:07 | disposition home or self-care (01) ==
PROVIDERS: PCP Internal Medicine; Visit Provider Internal Medicine
PROC: 0DJD8ZZ Inspection of Lower Intestinal Tract, Via Natural or Artificial Opening Endoscopic (ICD-10-PCS; CPT 45378; principal; 2023-04-29 09:30)
DX: Z12.11 Encounter for screening for malignant neoplasm of colon (principal); K51.00 Ulcerative (chronic) pancolitis without complications; K57.30 Diverticulosis of large intestine without perforation or abscess without bleeding; K64.8 Other hemorrhoids; K63.89 Other specified diseases of intestine; K64.4 Residual hemorrhoidal skin tags; B20 Human immunodeficiency virus [HIV] disease; J45.909 Unspecified asthma, uncomplicated; E78.5 Hyperlipidemia, unspecified; R32 Unspecified urinary incontinence; F31.9 Bipolar disorder, unspecified; Z79.899 Other long term (current) drug therapy; Z79.1 Long term (current) use of non-steroidal anti-inflammatories (NSAID); Z88.8 Allergy status to other drugs, medicaments and biological substances; F17.210 Nicotine dependence, cigarettes, uncomplicated
CPT/HCPCS: 45380; 88305; J1100; J2250; J2704

== ENCOUNTER 2023-05-13 08:51 | Outpatient (AMB) | payer OTHER, MEDICAID, SELFPAY ==
[2023-05-13 08:57] VITALS: BP 140/96; PULSE 73; O2SAT 99; BMI 18.8
--- NOTE | 2023-05-13 08:57 | A.OFFPC_ITS ---
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 Required: No Accompanied by: Self / Same As Patient Allergies barium sulfate Allergy (Severe, Verified 05/13/23 08:57) suicide ideation varenicline [From CHANTIX] Allergy (Severe, Verified 05/13/23 08:57) DEPRESSION, suicidal ideation gabapentin Allergy (Unknown, Verified 05/13/23 08:57) Unknown Medication List - Last Reconciled 05/13/23 by Swapna Chin MD albuterol sulfate 90 mcg/actuation (Ventolin HFA) 2 puffs inhalation Q6H PRN dxgpwifuu-ansnslru-nolgnhu ala 50-200-25 mg (Biktarvy) 1 tab PO DAILY 90 days blood pressure monitor (Blood Pressure Kit) As directed clonazepam 1 mg PO DAILY fluticasone furoate-vilanterol 200-25 mcg/dose (Breo Ellipta) 1 inh inhalation DAILY lamotrigine 200 mg PO DAILY naproxen 500 mg PO BID 90 days simvastatin 5 mg PO BEDTIME Tobacco use date assessed: 09/05/22 Fall risk assessment: No Falls in past year Last assessed Fall Risk: 05/13/23 Dental Screening Dental Screen Date: 05/13/23 Did you have a dental visit in the last 12 months?: Yes Did you have a dental problem in the last 6 months where you did not have access to dental care?: No Was dental information given to patient?: Patient has dentist HPI 4 month f/u HPI Details 63-year-old female smoker with bipolar d isorder hypercholesterolemia HIV positive asthma coming in for follow-up. Last seen last year March 2022. Mammograms up-to-date bone density is up-to-date colonoscopy is up-to-date. Chest CT done January 2023 mild to moderate bullous centrilobular emphysema with largest bullet a 4.5 cm minimal biapical fibrotic changes. Patient did see the nurse practitioner in December 2022 for a [place]. Patient also follows up with Infectious Disease interested in cabin over injection. noted elevated BP PFSH Medical History Cough HPV test positive Mixed incontinence Asthma Tobacco abuse Hypercholesterolemia HIV (human immunodeficiency virus infection) Bipolar disorder Ulcerative colitis Surgical History History of colonoscopy History of hemorrhoidectomy Family History Father No problems noted. Mother No problems noted. Social History Housing: Apartment Alcohol intake: never Patient Tobacco Use Status: Current someday Tobacco user Tobacco use type: Cigarette Cigarette Packs Per Day: 1 Cigarettes Per Day: 15 e-Cigarette/Vaping Use: Never Used Second Hand Smoke Exposure: No service: No Current occupational status: unemployed Cognitive needs: No Hearing needs: No Vision needs: No Questionnaire Thrive Questionnaire Date Thrive assessed: 09/05/22 PHAM-7 AMB Questionnaire PHAM-7 Date PHAM - 7 assessed: 01/13/23 Source: Developed by Drs. Marcus Gonzalez, Chelsea Alcantara, Facundo Barnes and colleagues, with an educational arsen from [employer]. Physical exam (Primary Care) Vital Signs: Last Vital Signs Pulse 73 05/13/23 08:57 BP 140/96 H 05/13/23 08:57 Pulse Ox 99 05/13/23 08:57 Oxygen Delivery Method Room Air 05/13/23 08:57 BMI result Body Mass Index 18.8 Tobacco/Smoking Status: Tobacco use Status Tobacco use date assessed 09/05/22 05/13/23 09:04 Patient Tobacco Use Status Current someday Tobacco 05/13/23 09:04 Tobacco use type Cigarette 05/13/23 09:04 e-Cigarette/Vaping Use Never Used 05/13/23 09:04 Thrive Assessment: Date of Thrive Assessment Date Thrive assessed 09/05/22 05/13/23 09:04 Const General: alert; No acute distress Eyes Conjunctivae: conjunctivae normal Resp Auscultation: clear to auscultation bilaterally Cardio Rate: regular rate Rhythm: regular rhythm GI Inspection: Yes normal to inspection Extrem General: Yes normal to inspection and No edema Assessment and Plan Assessment & Plan (1) Tobacco abuse: Code(s): Z72.0 - Tobacco use Plan: Patient is strongly advised to stop smoking (2) COPD (chronic obstructive pulmonary disease): Code(s): J44.9 - Chronic obstructive pulmonary disease, unspecified Plan: Continue with inhaler (3) HIV (human immunodeficiency virus infection): Comment: She is doing well and has no concerns. Code(s): B20 - Human immunodeficiency virus [HIV] disease Plan: Patient follows up with Infectious Disease placed on Biktarvy (4) Hypercholesterolemia: Code(s): E78.00 - Pure hypercholesterolemia, unspecified Plan: Avoid fried foods, chicken skin, eggs, butter margarine, pastries and meat. Be it pork or beef they have a lot of cholesterol LDL goal of less than 130 and triglyceride of less than 150. Patient on simvastatin 5 mg once a day (5) Bipolar disorder: Comment: Has counseling through [facility] (Nasima villanueva , Psychiatry Dr. Hutchins)(12/2021) Code(s): F31.9 - Bipolar disorder, unspecified Plan: Continue to follow-up with psychiatry and counseling (6) Blood pressure elevated without history of HTN: Code(s): R03.0 - Elevated blood-pressure reading, without diagnosis of hypertension Plan: monitor the BP and record Medications: New blood pressure monitor (Blood Pressure Kit) As directed 1 ea 0RF I10 - Essential (primary) hypertension, R03.0 - Elevated blood-pressure reading, without diagnosis of hypertension fluticasone furoate-vilanterol 200-25 mcg/dose (Breo Ellipta) 1 inh inhalation DAILY 60 ea 3RF J44.9 - Chronic obstructive pulmonary disease, unspecified Coding Level of Care Code Est Pt Level 4 (89577) Diagnoses Tobacco abuse Z72.0 COPD (chronic obstructive pulmonary disease) J44.9 HIV (human immunodeficiency virus infection) B20 Hypercholesterolemia E78.00 Bipolar disorder F31.9 Blood pressure elevated without history of HTN R03.0
== END 2023-05-13 10:16 | disposition home or self-care (01) ==
PROVIDERS: PCP Internal Medicine; Visit Provider Internal Medicine
DX: J44.9 Chronic obstructive pulmonary disease, unspecified (principal); B20 Human immunodeficiency virus [HIV] disease; F31.9 Bipolar disorder, unspecified; Z72.0 Tobacco use; E78.00 Pure hypercholesterolemia, unspecified; R03.0 Elevated blood-pressure reading, without diagnosis of hypertension; F17.210 Nicotine dependence, cigarettes, uncomplicated
CPT/HCPCS: 99214

== ENCOUNTER 2023-05-26 12:03 | Outpatient (REF) | payer OTHER, MEDICAID, SELFPAY | END 2023-05-26 12:04 | disposition home or self-care (01) | LOC: HO.LAB 12:03 | PROVIDERS: PCP Internal Medicine; Visit Provider Internal Medicine | DX: Z13.89 Encounter for screening for other disorder (principal) ==

== ENCOUNTER 2023-05-27 10:29 | Outpatient (REF) | payer OTHER, MEDICAID, SELFPAY ==
[2023-05-27 13:08] LABS: HBc Num1 0.07 S/CO (0.00-0.79); HBsAGNum1 0.24 S/CO (0.00-0.99); Hepatitis B Core Antibody Nonreactive (Nonreactive); Hepatitis B Surface Antigen Negative (Negative); ~HepC Num1 0.05 S/CO (0.00-0.79); ~Hepatitis B Surface Antibody NONREACTIVE (Nonreactive); ~Hepatitis C Antibody Nonreactive (Nonreactive)
[2023-05-29 18:29] LABS: Hepatitis B Viral DNA Qn - cp NOT DETECTED Log IU/mL (NOT DETECTED); Hepatitis B Viral DNA Qn-IU/mL NOT DETECTED (NOT DETECTED)
== END 2023-05-27 10:30 | disposition home or self-care (01) ==
LOC: HO.LAB 10:29
PROVIDERS: PCP Internal Medicine; Visit Provider Internal Medicine
DX: B20 Human immunodeficiency virus [HIV] disease (principal)
CPT/HCPCS: 36415; 86704; 86706; 86803; 87340; 87517

== ENCOUNTER 2023-06-02 11:56 | Outpatient (REF) | payer OTHER, MEDICAID, SELFPAY ==
[2023-06-03 11:03] LABS: Absolute CD3 Count 1838 cells/uL (840-3060); Absolute CD4 Count 1087 cells/uL (490-1740); Absolute CD8 Count 739 cells/uL (180-1170); Absolute Lymphocytes 2269 cells/uL (850-3900); CD4 CD8 Ratio 1.47 (0.86-5.00); Percent CD3 Cells 81 % (57-85); Percent CD4 Cells 48 % (30-61); Percent CD8 Cells 33 % (12-42)
[2023-06-04 06:58] LABS: HIV RNA PCR Qn Copies NOT DETECTED copies/mL (NOT DETECTED); HIV RNA PCR Qn Log Copies NOT DETECTED (NOT DETECTED)
== END 2023-06-02 11:57 | disposition home or self-care (01) ==
LOC: HO.LAB 11:56
PROVIDERS: PCP Internal Medicine; Visit Provider Internal Medicine
DX: B20 Human immunodeficiency virus [HIV] disease (principal)
CPT/HCPCS: 36415; 86359; 86360; 87536

== ENCOUNTER 2023-06-10 14:13 | Outpatient (AMB) | payer OTHER, MEDICAID, SELFPAY ==
--- NOTE | 2023-06-10 14:12 | A.OFFVIS_ITS ---
Intake Vital Signs 06/10/23 14:25 Weight 132 lb BP 88/62 L Blood Pressure Location Rt brachial Position Sitting Pulse 82 Pulse Source Pulse Oximeter Pulse Oximetry (%) 98 Intake Visit Reasons: 6 mth f/u,Lab Allergies barium sulfate Allergy (Severe, Verified 06/10/23 14:25) suicide ideation varenicline [From CHANTIX] Allergy (Severe, Verified 06/10/23 14:25) DEPRESSION, suicidal ideation gabapentin Allergy (Unknown, Verified 06/10/23 14:25) Unknown HPI 6 mth f/u,Lab HPI Details Her CD4 count is 1087 and viral load undetectable on 06/02. She feels well and wishes to continue on Biktarvy. She has no complaints and is UTD on health care maintenance. COUNT INCLUDES THE [facility] Medical History Cough HPV test positive Mixed incontinence Asthma Tobacco abuse Hypercholesterolemia HIV (human immunodeficiency virus infection) Bipolar disorder Ulcerative colitis Surgical History History of colonoscopy History of hemorrhoidectomy Family History Father No problems noted. Mother No problems noted. Social History Housing: Apartment Alcohol intake: never Patient Tobacco Use Status: Current someday Tobacco user Tobacco use type: Cigarette Cigarette Packs Per Day: 1 Cigarettes Per Day: 15 e-Cigarette/Vaping Use: Never Used Second Hand Smoke Exposure: No service: No Current occupational status: unemployed Cognitive needs: No Hearing needs: No Vision needs: No Review of Systems Const All systems reviewed & are unremarkable except as noted in HPI and below Physical Exam Vital Signs: Last Vital Signs Pulse 82 06/10/23 14:25 BP 88/62 L 06/10/23 14:25 Pulse Ox 98 06/10/23 14:25 Const General: cooperative Orientation/consciousness: patient oriented x3 HEENT Head: Yes normal to inspection Mouth: Normal oral and palatal mucosa present Eyes General: appearance normal, both eyes and all related structures Pupils: Equal, round and reactive pupils present Resp Effort & Inspection: normal respiratory effort Cardio Rate: regular rate Rhythm: regular rhythm GI Palpation (GI): Soft to palpation and nontender General: Yes no CVA tenderness Back/Spine/Pelvis Back: no CVA tenderness Skin General skin exam: no rashes or lesions noted Neuro General: patient oriented x3 Cranial nerves: Yes CN's II-XII intact bilaterally and Yes Equal, round and reactive pupils present Extrem General: Yes normal to inspection Psych Appearance: grossly normal Assessment & Plan Assessment & Plan (1) HIV (human immunodeficiency virus infection): Comment: She is doing well and has no concerns. Code(s): B20 - Human immunodeficiency virus [HIV] disease Plan: Continue Biktarvy. See in six months and check labs before. Plan Check labs before next visit. Orders: Orders Lymphocyte Subset Panel 3 6 Months B20 - Human immunodeficiency virus [HIV] disease Complete Blood Count Auto Diff 6 Months B20 - Human immunodeficiency virus [HIV] disease Basic Metabolic Panel 6 Months B20 - Human immunodeficiency virus [HIV] disease Liver Panel 6 Months B20 - Human immunodeficiency virus [HIV] disease T Spot TB 6 Months B20 - Human immunodeficiency virus [HIV] disease Syphilis Screen 6 Months B20 - Human immunodeficiency virus [HIV] disease Hepatitis C Antibody 6 Months B20 - Human immunodeficiency virus [HIV] disease HIV-1 RNA QN PCR Expanded 6 Months B20 - Human immunodeficiency virus [HIV] disease Medications: Changed From hhjkeinvm-nmgnbtja-hqsxwqg ala 50-200-25 mg (Biktarvy) 1 tab PO DAILY 90 tabs 1RF 90 days To qqmonzcit-tbkfyjik-lenfhlv ala 50-200-25 mg (Biktarvy) 1 tab PO DAILY 30 days 30 tabs 5RF Refilled tdjtjogoc-iaohfxbq-xvqoqon ala 50-200-25 mg (Biktarvy) 1 tab PO DAILY 30 tabs 5RF 30 days Coding Level of Care Code Est Pt Level 3 (17894) Diagnoses HIV (human immunodeficiency virus infection) B20
[2023-06-10 14:25] VITALS: BP 88/62; PULSE 82; O2SAT 98
== END 2023-06-10 14:48 | disposition home or self-care (01) ==
PROVIDERS: PCP Internal Medicine; Visit Provider Internal Medicine
DX: B20 Human immunodeficiency virus [HIV] disease (principal)
CPT/HCPCS: 99213

== ENCOUNTER → 2023-06-10 14:13 | Outpatient (BNVA) | payer MEDICARE, MEDICAID, SELFPAY | PROVIDERS: PCP Internal Medicine; Visit Provider Internal Medicine | DX: B20 Human immunodeficiency virus [HIV] disease (principal) | CPT/HCPCS: 99212 ==

== ENCOUNTER 2023-08-11 09:25 | Outpatient (REF) | payer OTHER, MEDICAID, SELFPAY ==
--- NOTE | ~2023-08-11 | MM_ITS ---
EXAMINATION: MM SCREENING DIGITAL BREAST TOMOSYNTHESIS, BILATERAL CLINICAL INFORMATION: Screening. Asymptomatic. COMPARISON: Mammography: This study is compared with prior exams dating back to 2021. TECHNIQUE: Digital breast tomosynthesis is performed in both the craniocaudal and mediolateral oblique views along with computer-aided detection (CAD). Synthesized 2D images are generated from the tomosynthesis. FINDINGS: The breasts are heterogeneously dense, which may obscure small masses (ACR BI-RADS breast composition Category c). There are no significant masses, abnormal calcifications, or other abnormalities. MM/MM tomosynthesis screening BI IMPRESSION: No mammographic evidence of malignancy. ASSESSMENT: BI-RADS BI-RADS 1 - Negative RECOMMENDATION: Routine annual mammography screening. 1 year F/U This examination should not preclude the clinical evaluation of a suspicious palpable abnormality. This patient's information was entered into a reminder system with a target due date for their next mammogram.
== END 2023-08-11 09:26 | disposition home or self-care (01) ==
LOC: HO.MAMMO 09:25
PROVIDERS: PCP Internal Medicine; Visit Provider Internal Medicine
DX: Z12.31 Encounter for screening mammogram for malignant neoplasm of breast (principal)
CPT/HCPCS: 77063; 77067

== ENCOUNTER → 2023-08-11 09:30 | Outpatient (BNV) | payer OTHER, MEDICAID, SELFPAY | PROVIDERS: PCP Internal Medicine; Visit Provider Radiology Diagnostic Radiology | DX: Z12.31 Encounter for screening mammogram for malignant neoplasm of breast (principal) | CPT/HCPCS: 77063; 77067 ==

== ENCOUNTER 2023-12-04 09:46 | Outpatient (REF) | payer MEDICARE, MEDICAID, SELFPAY ==
[2023-12-04 10:23] LABS: MANUAL DIFF FLAG NO
[2023-12-04 10:50] LABS: Basophils Percent Auto 0.6 % (0-2); Eosinophils Absolute Auto 0.1 X10*3/uL (0.0-0.4); Eosinophils Percent Auto 1.5 % (0-4); Hematocrit 37.1 % (37.0-47.0); Hemoglobin 12.4 g/dl (12.0-16.0); Imm Gran Abs Auto 0.02 X10*3/uL (0.00-0.03); Imm Gran Pct Auto 0.4 % (0.0-0.4); Lymphocytes Absolute Auto 1.8 X10*3/uL (1.2-4.9); Lymphocytes Percent Auto 37.1 % (20-40); Mean Corpuscular HGB Conc 33.4 g/dl (31.0-35.0); Mean Corpuscular Hemoglobin 33.6 pg (27.0-33.0); Mean Corpuscular Volume 100.5 fL (80.0-98.0); Mean Platelet Volume 9.2 fL (9.4-12.3); Monocytes Absolute Auto 0.3 X10*3/uL (0.1-1.2); Monocytes Percent Auto 6.5 % (2-11); Neutrophils Absolute Auto 2.6 x10*3/uL (2.0-8.3); Neutrophils Percent Auto 53.9 % (45-73); Platelet Count 262 X10*3/uL (160-400); Red Blood Count 3.69 X10*6/uL (4.20-5.50); Red Cell Distribution Width 12.6 % (11.0-16.0); White Blood Count 4.7 X10*3/uL (4.8-10.8)
[2023-12-04 20:38] LABS: Alanine Aminotransferase 19 U/L (0-31); Albumin Level 4.6 g/dL (3.5-5.0); Alkaline Phosphatase 169 U/L (39-117); Anion Gap 14 (12-20); Aspartate Amino Transferase 27 U/L (5-31); Bilirubin Direct 0.1 mg/dL (0.0-0.5); Bilirubin Total 0.5 mg/dL (0.0-1.0); Blood Urea Nitrogen 16 mg/dL (9-16); Calcium 9.6 mg/dL (8.4-10.2); Carbon Dioxide 26 mmol/L (22-29); Chloride 103 mmol/L (96-108); Estimated Glomerular Filt Rate 56; Glucose Random 91 mg/dL (60-115); Potassium 4.9 mmol/L (3.3-5.1); Sodium 138 mmol/L (135-145); Total Protein 7.1 g/dL (6.5-8.0)
[2023-12-05 03:32] LABS: Syphilis Screen Nonreactive (Nonreactive)
[2023-12-05 04:02] LABS: ~HepC Num1 0.04 S/CO (0.00-0.79); ~Hepatitis C Antibody Nonreactive (Nonreactive)
[2023-12-06 21:43] LABS: TS Negative Control Passed; TS Panel A 1; TS Panel B 1; TS Positive Control Passed; TSpotTB Negative (Negative)
[2023-12-07 13:38] LABS: HIV RNA PCR Qn Copies NOT DETECTED copies/mL (NOT DETECTED); HIV RNA PCR Qn Log Copies NOT DETECTED (NOT DETECTED)
[2023-12-07 20:13] LABS: Absolute CD3 Count 1412 cells/uL (840-3060); Absolute CD4 Count 885 cells/uL (490-1740); Absolute CD8 Count 532 cells/uL (180-1170); Absolute Lymphocytes 1728 cells/uL (850-3900); CD4 CD8 Ratio 1.66 (0.86-5.00); Percent CD3 Cells 82 % (57-85); Percent CD4 Cells 51 % (30-61); Percent CD8 Cells 31 % (12-42)
== END 2023-12-04 09:47 | disposition home or self-care (01) ==
LOC: HO.LAB 09:46
PROVIDERS: PCP Internal Medicine; Visit Provider Internal Medicine
DX: B20 Human immunodeficiency virus [HIV] disease (principal)
CPT/HCPCS: 36415; 80048; 80076; 85025; 86359; 86360; 86481; 86780; 86803; 87536

== ENCOUNTER 2023-12-14 14:49 | Outpatient (AMB) | payer OTHER, MEDICAID, SELFPAY ==
[2023-12-14 14:54] VITALS: BP 110/80; PULSE 76; O2SAT 98; BMI 20.2
--- NOTE | 2023-12-14 14:54 | MHC.OFFVIS ---
Vital Signs 12/14/23 14:54 Height 5 ft 9 in Weight 137 lb BMI 20.2 BP 110/80 Blood Pressure Location Rt brachial Position Sitting Pulse 76 Pulse Source Pulse Oximeter Pulse Oximetry (%) 98 Intake Visit Reasons: hiv follow up labs Allergies barium sulfate Allergy (Severe, Verified 12/14/23 14:59) suicide ideation varenicline [From CHANTIX] Allergy (Severe, Verified 12/14/23 14:59) DEPRESSION, suicidal ideation gabapentin Allergy (Unknown, Verified 12/14/23 14:59) Unknown HPI HPI hiv follow up labs: Details: She has CD4 count of 885 and viral load undetectable on 12/04/2023. She continues to take Biktarvy daily. She is getting rectal Pap and pap at next visit. She is UTD on colonoscopy and mammogram. [facility] Medical History Cough HPV test positive Mixed incontinence Asthma Tobacco abuse Hypercholesterolemia HIV (human immunodeficiency virus infection) Bipolar disorder Ulcerative colitis Surgical History History of colonoscopy History of hemorrhoidectomy Family History Father No problems noted. Mother No problems noted. Social History Housing: Apartment Alcohol intake: never Patient Tobacco Use Status: Current someday Tobacco user Tobacco use type: Cigarette Cigarette Packs Per Day: 1 Cigarettes Per Day: 15 e-Cigarette/Vaping Use: Never Used Second Hand Smoke Exposure: No service: No Current occupational status: unemployed Cognitive needs: No Hearing needs: No Vision needs: No Review of Systems Const All systems reviewed & are unremarkable except as noted in HPI and below Physical Exam Vital Signs: Last Vital Signs Pulse 76 12/14/23 14:54 BP 110/80 12/14/23 14:54 Pulse Ox 98 12/14/23 14:54 BMI result Body Mass Index 20.2 Const General: cooperative Orientation/consciousness: patient oriented x3 HEENT Head: Yes normal to inspection Mouth: Normal oral and palatal mucosa present Eyes General: appearance normal, both eyes and all related structures Pupils: Equal, round and reactive pupils present Resp Effort & Inspection: normal respiratory effort Cardio Rate: regular rate Rhythm: regular rhythm GI Palpation (GI): Soft to palpation and nontender General: Yes no CVA tenderness Back/Spine/Pelvis Back: no CVA tenderness Skin General skin exam: no rashes or lesions noted Neuro General: patient oriented x3 Cranial nerves: Yes CN's II-XII intact bilaterally and Yes Equal, round and reactive pupils present Extrem General: Yes normal to inspection Psych Appearance: grossly normal Assessment & Plan Assessment & Plan (1) Cough: Comment: She is doing well. Viral load is undetectable and CD4 count good. She is UTD health care strategies. Code(s): R05.9 - Cough, unspecified Category: Medical Plan: Would continue Biktarvy. Renew Biktarvy six months. Check CD4 count and viral load in six months. Orders: Orders HIV-1 RNA QN PCR Expanded 6 Months R05.9 - Cough, unspecified Lymphocyte Subset Panel 3 6 Months R05.9 - Cough, unspecified Medications: Refilled xghwsbczw-wrjqfmnq-tznqxek ala 50-200-25 mg (Biktarvy) 1 tab PO DAILY 30 days 30 tabs 5RF Coding Level of Care Code Est Pt Level 4 (99403) Diagnoses Cough R05.9
== END 2023-12-14 15:19 | disposition home or self-care (01) ==
LOC: HO.HID 14:49
PROVIDERS: PCP Internal Medicine; Visit Provider Internal Medicine
DX: R05.9 Cough, unspecified (principal)
CPT/HCPCS: 99214

== ENCOUNTER → 2023-12-14 14:49 | Outpatient (BNVA) | payer OTHER, MEDICAID, SELFPAY | PROVIDERS: PCP Internal Medicine; Visit Provider Internal Medicine ==

== ENCOUNTER 2024-01-11 12:26 | Outpatient (AMB) | payer OTHER, MEDICAID, SELFPAY ==
[2024-01-11 12:36] VITALS: BP 112/68; PULSE 73; O2SAT 96; BMI 21.3
--- NOTE | 2024-01-11 12:36 | A.OFFVIS_ITS ---
Intake Vital Signs 01/11/24 12:36 Height 5 ft 7.5 in Weight 138 lb BMI 21.3 BP 112/68 Blood Pressure Location Lt brachial Position Sitting Pulse 73 Pulse Source Pulse Oximeter Pulse Oximetry (%) 96 Oxygen Delivery Method Room Air Intake Visit Reasons: sawv Allergies barium sulfate Allergy (Severe, Verified 01/11/24 12:37) suicide ideation varenicline [From CHANTIX] Allergy (Severe, Verified 01/11/24 12:37) DEPRESSION, suicidal ideation gabapentin Allergy (Unknown, Verified 01/11/24 12:37) Unknown Medication List - Last Reconciled 01/11/24 by Swapna Chin MD albuterol sulfate 90 mcg/actuation (Ventolin HFA) 2 puffs inhalation Q6H PRN jupoxqcqm-wqaibktn-gaouszn ala 50-200-25 mg (Biktarvy) 1 tab PO DAILY 30 days blood pressure monitor (Blood Pressure Kit) As directed clonazepam 1 mg PO DAILY fluticasone furoate-vilanterol 200-25 mcg/dose (Breo Ellipta) 1 inh inhalation DAILY lamotrigine 200 mg PO DAILY simvastatin 5 mg PO BEDTIME HPI sawv HPI Details 63-year-old female smoker with COPD HIV hypercholesterolemia bipolar disorder last seen in April 2023. Patient's mammogram is up-to-date bone density is due colonoscopy is up-to-date 05/06/2023. Patient is here for annual well visit. Seen infectious disease in 12/05/2023 advised blood work and refilled Biktarvy . fall - 3 weeks ago stairs L wrist pain gluteal area , R knee, L wrist L elbow but decline xray PFSH Medical History (Updated 01/11/24 @ 19:26 by Swapna Chin MD) Asthma Cough HPV test positive Mixed incontinence Tobacco abuse Hypercholesterolemia HIV (human immunodeficiency virus infection) Bipolar disorder Ulcerative colitis Surgical History History of colonoscopy History of hemorrhoidectomy Family History Father No problems noted. Mother No problems noted. Social History (Updated 01/11/24 @ 12:59 by Swapna Chin MD) Housing: Apartment Alcohol intake: never Patient Tobacco Use Status: Current someday Tobacco user Tobacco use type: Cigarette Cigarette Packs Per Day: 1 Cigarettes Per Day: 15 Years Smoked: stopped may and using vape- e-Cigarette/Vaping Use: Never Used Second Hand Smoke Exposure: No service: No Current occupational status: unemployed Cognitive needs: No Hearing needs: No Vision needs: No Questionnaire Medicare Wellness Checkup What [age] 65-68 What gender do you identify with?: female During the past 4 weeks, how much have you been bothered by emotional problems such as feeling anxious, depressed, irritable, sad or downhearted, and blue?: slightly During the past 4 weeks, has your physical & emotional health limited your social activities with family, friends, neighbors, or groups?: not at all During the past 4 weeks, how much bodily pain have you generally had?: severe pain During the past 4 weeks, was someone available to help you if you needed & wanted help?: no, not at all During the past 4 weeks, what was the hardest physical activity you could do for at least 2 minutes?: moderate Can you get to places out of walking distance without help? (For eg., can you travel alone on buses, taxis or drive your car?): Yes Can you go shopping for groceries or clothes without someone's help?: Yes Can you prepare your own meals?: Yes Can you do your housework without help?: Yes Because of any health problems, do you need the help of another person with your personal care needs such as eating, bathing, dressing or getting around the house?: No Can you handle your own money without help?: Yes During the past 4 weeks, how would you rate your health in general?: good During the past 4 weeks how have things been going for you?: pretty well Are you having difficulties driving your car?: sometimes Do you always fasten your seat belt when you are in a car?: yes, usually During past 4 weeks, have you been bothered by the following: never: Sexual problems? and Problems using the telephone?, seldom: Falling or dizzy when standing up and Teeth or denture problems? and sometimes: Trouble eating well? and Tiredness or fatigue? Have you fallen 2 or more times in the past year?: Yes Are you afraid of falling?: Yes Are you a smoker?: yes, and I might quit During the past 4 weeks, how many drinks of wine, beer, or other alcoholic beverages did you have?: no alcohol at all Do you exercise for about 20 minutes 3 or more times a week?: no, I usually do not exercise this much Have you been given information to help with the following?: no: Hazards in your house that might hurt you? and no: Keeping track of your medications? How often do you have trouble taking medicines the way you have been told to take them?: sometimes I take medicine as prescribed What is your race?: White PHQ-9 Over the last 2 weeks, how often have you been bothered by any of the following problems? 1. Little interest or pleasure in doing things: not at all 2. Feeling down, depressed, or hopeless: several days 3. Trouble falling or staying asleep, or sleeping too much: not at all 4. Feeling tired or having little energy: several days 5. Poor appetite or overeating: more than half the days 6. Feeling bad about yourself - or that you are a failure or have let yourself or your family down: nearly every day 7. Trouble concentrating on things, such as reading the newspaper or watching television: not at all 8. Moving or speaking so slowly that other people could have noticed. Or the opposite - being so fidgety or restless that you have been moving around a lot more than usual: not at all 9. Thoughts that you would be better off or of hurting yourself in some way: not at all Total score: 7 Depression Screening Interpretation: Positive Depression Screening Done: Yes Source: Developed by Drs. Marcus Gonzalez, Chelsea Alcantara, Facundo Barnes and colleagues, with an educational arsen from [employer]. Thrive Questionnaire Date Thrive assessed: 01/11/24 I am a: Patient What is your living situation today?: I have a steady place to live Within the past 12 months, did the food you bought not last and you didn't have the money to get more?: Never true Within the past 12 months, did you worry whether your food would run out before you got money to buy more?: Never true Do you have trouble paying for medicines?: No Do you have trouble getting transportation to medical appointments?: No Do you have trouble paying your heating and electricity bill?: No Do you have trouble taking care of your child, family member or friend?: No Do you have trouble with day-to-day activities such as bathing, preparing meals, shopping, managing finances, etc.?: No Are you currently unemployed and looking for a job?: No Are you interested in more education?: No Currently or been in a relationship where the following occur: No concerns reported THRIVE Score: 0 PHAM-7 AMB Questionnaire PHAM-7 Date PHAM - 7 assessed: 01/11/24 Feeling nervous, anxious, or on edge: 0 = Not at all Not being able to stop or control worryin = Not at all Worrying too much about different things: 0 = Not at all Trouble relaxin = Not at all Being so restless that it is hard to sit still: 0 = Not at all Becoming easily annoyed or irritable: 0 = Not at all Feeling afraid as if something awful might happen: 0 = Not at all Total PHAM-7 score (0-4 normal; 5-9 mild; 10-14 moderate; 15-21 severe): 0 Source: Developed by Drs. Marcus Gonzalez, Chelsea Alcantara, Facundo Barnes and colleagues, with an educational arsen from [employer]. Review of Systems Const Denies poor appetite and Denies weakness Eyes Denies no additional complaints ENT Reports Normal hearing present, Denies dizziness, Denies nasal congestion, De nies tinnitus and Denies sore throat Card Denies chest pain, Denies syncope, Denies rapid heart rate and Denies dyspnea Resp Denies cough and Denies dyspnea GI Denies change in stool character, Reports constipation, Denies diarrhea, Denies nausea and Denies vomiting Denies urinary frequency, Denies difficulty voiding and Denies dysuria Neuro Reports Normal hearing present, Denies confusion, Denies dizziness, Denies syncope and Denies weakness Psych Denies confusion Physical Exam Vital Signs: Last Vital Signs Pulse 73 01/11/24 12:36 BP 112/68 01/11/24 12:36 Pulse Ox 96 01/11/24 12:36 Oxygen Delivery Method Room Air 01/11/24 12:36 BMI result Body Mass Index 21.3 Const General: No confusion Orientation/consciousness: No confusion HEENT Head: Yes normocephalic Ears: external ears normal and TM's normal bilaterally Face and sinus: Yes normal facial exam Mouth: moist mucous membranes Throat: Yes tonsils normal Eyes Conjunctivae: conjunctivae normal Pupils: Equal, round and reactive pupils present and Pupil accommodation reflex normal Direct Ophthalmoscopy: normal light reflex Neck Neck: No lymphadenopathy Thyroid: Thyroid normal Chest Chest palpation & inspection: normal inspection of the chest Resp Effort & Inspection: normal respiratory effort and no audible wheezes Auscultation: clear to auscultation bilaterally, no crackles, no wheezes and lung sounds not diminished Cardio Rate: regular rate Rhythm: regular rhythm Peripheral pulses: radial pulses present and dorsalis pedis present GI Palpation (GI): no masses Auscultation: normal bowel sounds and normoactive bowel sounds Rectal Exam - Female: deferred Skin General skin exam: no rashes or lesions noted Rashes: no rashes Neuro General: No confusion Cranial nerves: Yes Equal, round and reactive pupils present and Yes Normal hearing present Cognition (Neuro): normal cognition Gait exam (Neuro): Normal gait present Motor exam (neuro): 5/5 motor strength present throughout Deep tendon reflexes (DTR's): Right brachioradialis reflex intensity grade: 2+, Left brachioradialis reflex intensity grade: 2+, Right patellar reflex intensity grade: 2+ and Left patellar reflex intensity grade: 2+ Extrem General: No edema Immunizations pneumoc 20-kandi conj-dip cr(PF) 0.5 mL IM syringe Performing Provider: Swapna Chin MD Performing Location: [facility] Administered by: Aydee Christianson CMA on 01/11/24 13:17 Dose Route Admin Location Dispensed Lot Number Expiration Date NDC Policy Specialist 0.5 mL IM Left Deltoid 0.5 mL [id number] 10/16/24 [id number] [employer] VIS Given Date VIS Provided VIS Publication Date 01/11/24 Single Vaccine 21 Eligibility Eligibility Date Funding Source Not [facility] Eligible 01/11/24 Private Assessment & Plan Assessment & Plan (1) Medicare annual wellness visit, subsequent: Code(s): Z00.00 - Encounter for general adult medical examination without abnormal findings Plan: Patient is advised to eat healthy, keep well hydrated, keep active and have adequate sleep. decline health care proxy forms filling (2) HIV (human immunodeficiency virus infection): Comment: She is doing well and has no concerns. Code(s): B20 - Human immunodeficiency virus [HIV] disease Qualifiers: HIV symptom status: asymptomatic, with no history of HIV-related illness Qualified Code(s): Z21 - Asymptomatic human immunodeficiency virus [HIV] infection status Plan: Continue to follow-up with the infectious disease specialist on [facility] (3) Tobacco abuse: Code(s): Z72.0 - Tobacco use Plan: Patient is strongly advised to stop smoking! (4) Osteoporosis: Code(s): M81.0 - Age-related osteoporosis without current pathological fracture Qualifiers: Osteoporosis type: age-related Presence of current pathological fracture: without current pathological fracture Qualified Code(s): M81.0 - Age- related osteoporosis without current pathological fracture Plan: Reminded about bone density (5) Hypercholesterolemia: Code(s): E78.00 - Pure hypercholesterolemia, unspecified Plan: Avoid fried foods, chicken skin, eggs, butter margarine, pastries and meat. Be it pork or beef they have a lot of cholesterol on simvastatin 5 mg once a day (6) COPD (chronic obstructive pulmonary disease): Code(s): J44.9 - Chronic obstructive pulmonary disease, unspecified Qualifiers: COPD type: unspecified COPD Qualified Code(s): J44.9 - Chronic obstructive pulmonary disease, unspecified Plan: Continue with Breo and albuterol inhaler (7) Bipolar disorder: Comment: Has counseling through [facility] ([facility] , Psychiatry Dr. Hutchins)(12/2021) Code(s): F31.9 - Bipolar disorder, unspecified Qualifiers: Active/Remission status: currently active Current bipolar episode type: mixed Current episode severity: unspecified Qualified Code(s): F31.60 - Bipolar disorder, current episode mixed, unspecified Plan: Continue with counseling and therapy. (8) Gait instability: Code(s): R26.81 - Unsteadiness on feet Plan: Will send for physical therapy. Keep active (9) Low back pain: Code(s): M54.50 - Low back pain, unspecified Qualifiers: Chronicity: chronic Back pain laterality: midline Sciatica presence: without sciatica Qualified Code(s): M54.50 - Low back pain, unspecified; G89.29 - Other chronic pain Plan: Keep active in do regular exercise (10) GERD (gastroesophageal reflux disease): Code(s): K21.9 - Gastro-esophageal reflux disease without esophagitis Qualifiers: Esophagitis presence: without esophagitis Qualified Code(s): K21.9 - Gastro-esophageal reflux disease without esophagitis Plan: Avoid the foods that causes that usually spicy foods, tomato products, juices, coffee, soda and foods that your sensitive to. After eating do not lie down, allow 3-4 hours before in lie down. And keep the head of bed above 30 degrees to avoid the acid from going up. Orders: Orders Free T4 (Free Thyroxine) Today E78.00 - Pure hypercholesterolemia, unspecified Vitamin B12 and Folate Today E78.00 - Pure hypercholesterolemia, unspecified Vitamin D 25-OH Total Today E78.00 - Pure hypercholesterolemia, unspecified XR DEXA axial skeleton Today M81.0 - Age-related osteoporosis without current pathological fracture PT Evaluation and Treatment Today R26.81 - Unsteadiness on feet Pneumococcal 20 Immunization Today Z23 - Encounter for immunization Complete Blood Count Auto Diff Today E78.00 - Pure hypercholesterolemia, unspecified Comprehensive Met. Panel Today E78.00 - Pure hypercholesterolemia, unspecified Thyroid Stimulating Hormone Today E78.00 - Pure hypercholesterolemia, unspecified Lipid Panel Today E78.00 - Pure hypercholesterolemia, unspecified FL upper GI series Today K21.9 - Gastro-esophageal reflux disease without esophagitis, R13.10 - Dysphagia, unspecified Medications: New meloxicam 7.5 mg PO DAILY 30 tabs 1RF M54.50 - Low back pain, unspecified Quality Reporting (2019) Depression/Bipolar (159/160/161/177) PHQ-9: Total score: 7 Coding Level of Care Code Medicare Subsequent (G0439) Diagnoses Medicare annual wellness visit, subsequent Z00.00 Asymptomatic HIV infection, with no history of HIV-related illness Z21 HIV symptom status: asymptomatic, with no history of HIV-related illness Tobacco abuse Z72.0 Age-related osteoporosis without current pathological fracture M81.0 Osteoporosis type: age-related Presence of current pathological fracture: without current pathological fracture Hypercholesterolemia E78.00 Chronic obstructive pulmonary disease, unspecified COPD type J44.9 COPD type: unspecified COPD Bipolar affective disorder, current episode mixed, current episode severity unspecified F31.60 Active/Remission status: currently active Current bipolar episode type: mixed Current episode severity: unspecified Gait instability R26.81 Chronic midline low back pain without sciatica M54.50; G89.29 Chronicity: chronic Back pain laterality: midline Sciatica presence: without sciatica Gastroesophageal reflux disease without esophagitis K21.9 Esophagitis presence: without esophagitis
== END 2024-01-11 13:25 | disposition home or self-care (01) ==
PROVIDERS: PCP Internal Medicine; Visit Provider Internal Medicine
DX: Z00.00 Encounter for general adult medical examination without abnormal findings (principal); Z21 Asymptomatic human immunodeficiency virus [HIV] infection status; J44.9 Chronic obstructive pulmonary disease, unspecified; Z23 Encounter for immunization; F31.60 Bipolar disorder, current episode mixed, unspecified; Z72.0 Tobacco use; M81.0 Age-related osteoporosis without current pathological fracture; E78.00 Pure hypercholesterolemia, unspecified; R26.81 Unsteadiness on feet; M54.50 Low back pain, unspecified; G89.29 Other chronic pain; K21.9 Gastro-esophageal reflux disease without esophagitis
CPT/HCPCS: 90471; 90677; G0439

== ENCOUNTER 2024-02-10 08:38 | Outpatient (REF) | payer OTHER, MEDICAID, SELFPAY ==
--- NOTE | ~2024-02-10 | MM_ITS ---
EXAMINATION: BONE DENSITOMETRY CLINICAL INDICATION: Age-related osteoporosis without current pathological fracture. COMPARISON: Previous BD dated 12/31/2021 and baseline BD dated 03/28/2007. TECHNIQUE: Using a [employer] DXA System (software version: 13.1) manufactured by [employer], dual-energy x-ray absorptiometry was performed of the lumbar spine and left hip. The images are of good technical quality. Summary results are attached. FINDINGS: LEFT FEMUR, NECK: Current: BMD 0.736 g/cm2, Z-score -0.7, T-score -2.2, osteopenia. Prior: BMD 0.723 g/cm2. Baseline: BMD 0.803 g/cm2. LEFT FEMUR, TOTAL: Current: BMD 0.723 g/cm2, Z-score -1.0, T-score -2.3, osteopenia, 5.6% decrease from previous, 10.3% decrease from baseline (<5% change is not significant). Prior: BMD 0.766 g/cm2. Baseline: BMD 0.806 g/cm2. AP SPINE L1-L4: Current: BMD 0.771 g/cm2, Z-score -1.7, T-score -3.4, osteoporosis, 1.2% decrease from previous, 6.8% decrease from baseline (<5% change is not significant). Prior: BMD 0.780 g/cm2. Baseline: BMD 0.827 g/cm2. IDENTIFIED RISK FACTORS: Osteoporosis, current smoker, height loss, low body weight. Early menopause, secondary osteoporosis, glucocorticoids. HISTORY OF FRACTURE: None listed. MEDICATIONS: None listed. MM/XR DEXA axial skeleton IMPRESSION: 1. DIAGNOSIS: Osteoporosis based on the lowest T-score value of -3.4 in the lumbar spine applying World Health Organization criteria. 2. 10-YEAR FRACTURE RISK PREDICTION, FRAX: According to the guidelines, FRAX calculation should only be performed on patients in the osteopenia bone density category. Therefore, FRAX was not performed on this patient. 3. Treatment Recommendations: NOF guidelines recommend consideration for treatment in postmenopausal women and men age 50 and older presenting with the following: -A hip or vertebral (clinical or morphometric) fracture. -T-score less than or equal to -2.5 at the femoral neck or spine after appropriate evaluation to exclude secondary causes. -Low bone mass at the hip or spine and a 10-year fracture probability by FRAX of greater than or equal to 3% for hip fracture or greater than or equal to 20% for major osteoporotic fracture based on the [place] adapted WHO algorithm. 4. Other Recommendations: All treatment decisions require clinical judgment and consideration of individual patient factors, including patient preferences, comorbidities, previous drug use, risk factors not captured in the FRAX model (e.g. frailty, falls, vitamin D deficiency, increased bone turnover, interval significant decline in bone density) and possible under or overestimation of fracture risk by FRAX. Additional medical evaluation for secondary cause of low bone mineral density may be appropriate. FUTURE SCAN RECOMMENDATION: People with diagnosed cases of osteoporosis or at high risk for fracture should have regular bone mineral density tests. For patients eligible for Medicare, routine testing is allowed once every 2 years. The testing frequency can be increased to one year for patients who have rapidly progressing disease, those who are receiving or discontinuing medical therapy to restore bone mass, or have additional risk factors. Electronically signed by: Nabila Simmons MD 02/24/2024 08:14 AM EDT RP
== END 2024-02-10 08:39 | disposition home or self-care (01) ==
LOC: HO.MAMMO 08:38
PROVIDERS: PCP Internal Medicine; Visit Provider Internal Medicine
DX: M81.0 Age-related osteoporosis without current pathological fracture (principal)
CPT/HCPCS: 77080

== ENCOUNTER 2024-03-03 09:49 | Outpatient (REF) | payer OTHER, MEDICAID, SELFPAY ==
--- NOTE | ~2024-03-03 | FL_ITS ---
EXAMINATION: XR FLUOROSCOPY UPPER GI WITH AIR CLINICAL INFORMATION: Dysphagia. Epigastric pain. COMPARISON: None TECHNIQUE: Fluoroscopic air contrast upper GI examination was performed utilizing standard techniques with thin and thick barium and effervescent granules. Numerous spot images were obtained. FINDINGS: Lateral cine images of the oropharynx and hypopharynx demonstrate normal swallow mechanism with normal epiglottic inversion and soft palate elevation. No tracheal penetration, glottic or subglottic aspiration identified. No nasopharyngeal reflux present. Hypopharyngeal structures appear normal without evidence of mass or diverticulum. There was no significant cricopharyngeal achalasia. Dual and single contrast images of the esophagus demonstrate a normal caliber, and contour. There is a granular appearance of the esophageal mucosa, suggestive of esophagitis. There are a few areas of contrast pooling in the mid esophageal wall, suggestive of ulcerations. No stricture or mass present. Esophageal peristalsis is moderately disorganized. There is mild narrowing of the GE junction that may represent achalasia or a benign stricture. A small type I hiatal hernia is present. Severe gastroesophageal reflux is seen up to the thoracic inlet. Dual contrast and single contrast images of the stomach demonstrated a normal contour. The gastric rugal folds have a thickened appearance, suggestive of gastritis. There are multiple tiny foci of contrast pooling in the body and antrum of the stomach that may represent small mucosal erosions. No masses are seen. Contrast freely passed into the gastric antrum and duodenal bulb without delay. Single and air-contrast images of the duodenal bulb demonstrate no abnormality. The duodenal sweep has a normal appearance, course, and mucosal fold appearance. FLUOROSCOPY TIME: 5 minutes 8 seconds Number of Spot Images: 8 Number of Cine: 16 DOSE AREA PRODUCT: [id number] uGy-m2 (microgray-meter squared) FL/FL upper GI w air IMPRESSION: 1. Granular appearance of the esophageal mucosa. In addition there are a few areas of contrast pooling in the mid esophageal wall. These findings are suggestive of erosive esophagitis. Recommend correlation with EGD. 2. Moderately disorganized esophageal peristalsis. 3. Mild narrowing of the GE junction that may represents achalasia. A benign stricture cannot be ruled out. Recommend correlation with EGD. 4. Small type I hiatal hernia with severe gastroesophageal reflux. 5. Thickened appearance of the gastric rugal folds. In addition there are multiple tiny foci of contrast pooling in the body and antrum of the stomach. These findings are suggestive of erosive gastritis. Recommend correlation with EGD. This procedure was performed by Scottie Rodriguez PA-C, and supervised by Dr. Kinney Electronically signed by: Kevin Kinney MD 03/04/2024 01:48 PM EDT
== END 2024-03-03 09:50 | disposition home or self-care (01) ==
LOC: HO.XRAY 09:49
PROVIDERS: PCP Internal Medicine; Visit Provider Internal Medicine
DX: R13.10 Dysphagia, unspecified (principal); K21.9 Gastro-esophageal reflux disease without esophagitis
CPT/HCPCS: 74246

== ENCOUNTER → 2024-03-03 09:51 | Outpatient (BNV) | payer OTHER, MEDICAID, SELFPAY | PROVIDERS: PCP Internal Medicine; Visit Provider Radiology Diagnostic Radiology | DX: R13.10 Dysphagia, unspecified (principal) | CPT/HCPCS: 74246 ==

== ENCOUNTER 2024-06-09 12:27 | Outpatient (REF) | payer OTHER, SELFPAY ==
[2024-06-11 17:43] LABS: HIV RNA PCR Qn Copies NOT DETECTED copies/mL (NOT DETECTED); HIV RNA PCR Qn Log Copies NOT DETECTED (NOT DETECTED)
[2024-06-14 18:17] LABS: Absolute CD3 Count 1798 cells/uL (840-3060); Absolute CD4 Count 1055 cells/uL (490-1740); Absolute CD8 Count 744 cells/uL (180-1170); Absolute Lymphocytes 2146 cells/uL (850-3900); CD4 CD8 Ratio 1.42 (0.86-5.00); Percent CD3 Cells 84 % (57-85); Percent CD4 Cells 49 % (30-61); Percent CD8 Cells 35 % (12-42)
== END 2024-06-09 12:28 | disposition home or self-care (01) ==
LOC: HO.LAB 12:27
PROVIDERS: PCP Internal Medicine; Visit Provider Internal Medicine
DX: R05.9 Cough, unspecified (principal); Z11.59 Encounter for screening for other viral diseases
CPT/HCPCS: 36415; 86359; 86360; 87536

== ENCOUNTER 2024-06-15 14:16 | Outpatient (AMB) | payer OTHER, MEDICAID, SELFPAY ==
--- NOTE | 2024-06-15 15:01 | MHC.OFFVIS ---
Vital Signs 06/15/24 15:07 Height 5 ft 7 in Weight 141 lb BMI 22.1 Pulse 80 Pulse Source Pulse Oximeter Pulse Oximetry (%) 96 Oxygen Delivery Method Room Air Intake Visit Reasons: hiv follow up labs Allergies barium sulfate Allergy (Severe, Verified 06/15/24 15:07) suicide ideation varenicline [From CHANTIX] Allergy (Severe, Verified 06/15/24 15:07) DEPRESSION, suicidal ideation gabapentin Allergy (Unknown, Verified 06/15/24 15:07) Unknown HPI HPI hiv follow up labs: Details: She has been doing well. She continues to take Biktarvy. [facility] Medical History Asthma Cough HPV test positive Mixed incontinence Tobacco abuse Hypercholesterolemia HIV (human immunodeficiency virus infection) Bipolar disorder Ulcerative colitis Surgical History History of colonoscopy History of hemorrhoidectomy Family History Father No problems noted. Mother No problems noted. Social History Housing: Apartment Alcohol intake: never Patient Tobacco Use Status: Current someday Tobacco user Tobacco use type: Cigarette Cigarette Packs Per Day: 1 Cigarettes Per Day: 15 Years Smoked: stopped september and using vape- e-Cigarette/Vaping Use: Never Used Second Hand Smoke Exposure: No service: No Current occupational status: unemployed Cognitive needs: No Hearing needs: No Vision needs: No Review of Systems Const All systems reviewed & are unremarkable except as noted in HPI and below Physical Exam Vital Signs: Last Vital Signs Pulse 80 06/15/24 15:07 Pulse Ox 96 06/15/24 15:07 Oxygen Delivery Method Room Air 06/15/24 15:07 BMI result Body Mass Index 22.1 Const General: cooperative Orientation/consciousness: patient oriented x3 HEENT Head: Yes normal to inspection Mouth: Normal oral and palatal mucosa present Eyes General: appearance normal, both eyes and all related structures Pupils: Equal, round and reactive pupils present Resp Effort & Inspection: normal respiratory effort Cardio Rate: regular rate Rhythm: regular rhythm GI Palpation (GI): Soft to palpation and nontender General: Yes no CVA tenderness Back/Spine/Pelvis Back: no CVA tenderness Skin General skin exam: no rashes or lesions noted Neuro General: patient oriented x3 Cranial nerves: Yes CN's II-XII intact bilaterally and Yes Equal, round and reactive pupils present Extrem General: Yes normal to inspection Psych Appearance: grossly normal Assessment & Plan Assessment & Plan (1) HIV (human immunodeficiency virus infection): Comment: She is doing well and has no concerns. CD4 count is 1055 and viral load undetectable Code(s): B20 - Human immunodeficiency virus [HIV] disease Category: Medical Qualifiers: HIV symptom status: asymptomatic, with no history of HIV-related illness Qualified Code(s): Z21 - Asymptomatic human immunodeficiency virus [HIV] infection status Plan: Check CD4 count and viral load December 07 and see after labs done. Continue healthcare screenings. Orders: Orders Lymphocyte Subset Panel 3 6 Months Z21 - Asymptomatic human immunodeficiency virus [HIV] infection status HIV-1 RNA QN PCR Expanded 6 Months Z21 - Asymptomatic human immunodeficiency virus [HIV] infection status Complete Blood Count Auto Diff 6 Months Z21 - Asymptomatic human immunodeficiency virus [HIV] infection status Basic Metabolic Panel 6 Months Z21 - Asymptomatic human immunodeficiency virus [HIV] infection status Liver Panel 6 Months Z21 - Asymptomatic human immunodeficiency virus [HIV] infection status Medications: Refilled lwroooond-buoxcmmh-vxnztvh ala 50-200-25 mg (Biktarvy) 1 tab PO DAILY 30 tabs 5RF 30 days Coding Level of Care Code Est Pt Level 4 (95103) Diagnoses Asymptomatic HIV infection, with no history of HIV-related illness Z21 HIV symptom status: asymptomatic, with no history of HIV-related illness
[2024-06-15 15:07] VITALS: PULSE 80; O2SAT 96; BMI 22.1
--- OUTSIDE RECORDS SUMMARY | 2024-06-15 16:31 | XMS_ITS ---
Author Organization [facility] Address [address] [place] [address] Care Team Providers Care Senior Staff Accountant Name Role Phone Swapna Chin MD Primary Care Provider Marcus Dong [phone] ALLERGIES Allergen (clinical drug ingredient) Drug/Non Drug Allergy documented on EMR Reaction Allergy Type Onset Date Status varenicline Chantix Unknown Drug Allergy Activ e REASON FOR VISIT Patient presents today for a COLONOSCOPY RECALL MEDICATIONS Medication SIG (Take, Route, Fr equency, Duration) Notes Start Date End Date Status Biktarvy 50-200-25 MG 1 tablet Orally On ce a day for 30 day(s) Active Naproxen 500 MG Oral for 90 PRN Ac tive clonazePAM 1 MG 1 tablet Orally Once a day Active FLUoxetine HCl 40 MG 1 tablet in the mor valery Orally Once a day Active lamoTRIgine 200 MG 1 tablet Orally Twic e a day for 30 day(s) Active SOCIAL HISTORY Sex Assigned At : Social History Observation Description Sex Assigned At Unknown Alcohol Screen Question Answer Notes Did you have a drink containing alcohol in the p ast year? No Points 0 Interpretation Negative VITAL SIGNS BMI 18.34 kg/m2 02/05/2023 Blood pressure systolic 000 mm Hg 02/06/20 23 Blood pressure diastolic 00 mm Hg 023 Height 69.5 in 02/05/2023 Temperature 97.3 degrees Fahrenheit 02/06/20 23 Weight 126 lbs 02/05/2023 Encounters Encounter Location Date Provider Diagnosis [facility] [address] [place] [address] 02/05/2023 Marcus Cam Ulcerative pancoliti s without complication K51.00 and Encounter for screening for malignant neoplasm of colon Z12.11 ASSESSMENTS Encounter Date Diagnosis Assessment Notes Treatment Notes Treatment Clinical Notes 02/05/2023 Ulcerative pancolitis without complication (ICD-10 - K51.00) 02/05/2023 Encounter for screening for malignant neoplasm of colon (ICD-10 - Z12.11) PLAN OF TREATMENT Future Test Test Name Order Date COLONOSCOPY 02/05/2023 Next Appt Details Follow Up: prn, Reason: Provider Name:Marcus Cam , 10/05/2024 01:40:00 PM, [address] [place] [address], [address], [place], [address], Progress Notes * Examination Category Sub-Category Detail Notes General Examination GENERAL APPEARANCE: pleasant , well nourished, well developed, in no acute distress EYES: sclera non-icteric NECK/THYROID: no cervical lymphade nopathy, neck supple HEART: S1, S2 normal LUNGS: clear to auscultatio n bilaterally ABDOMEN: normal bowel sounds, no guarding or rigidity, no hepatosplenomegaly, no masses palpable, soft, nontender, nondistended. NEUROLOGIC: alert and oriented SKIN: nonjaundiced, no spi cesar angiomata. EXTREMITIES: no edema ORAL CAVITY: mucosa moist
--- OUTSIDE RECORDS SUMMARY | 2024-06-15 16:31 | XMS_ITS | Patient Health Record ---
Author Organization [facility] Address [address] [place] [address] Care Team Providers Care Milled Rice Broker Name Role Phone Swapna Chin MD Primary Care Provider Marcus Dong [phone] ALLERGIES Allergen (clinical drug ingredient) Drug/Non Drug Allergy documented on EMR Reaction Allergy Type Onset Date Status varenicline Chantix Unknown Drug Allergy Activ e REASON FOR REFERRAL No Information MEDICATIONS Medication SIG (Take, Route, Fr equency, Duration) Notes Start Date End Date Status FLUoxetine HCl 40 MG 1 tablet in the mor valery Orally Once a day Active Biktarvy 50-200-25 MG 1 tablet Orally On ce a day for 30 day(s) Active Naproxen 500 MG Oral for 90 PRN Ac tive lamoTRIgine 200 MG 1 tablet Orally Twic e a day for 30 day(s) Active clonazePAM 1 MG 1 tablet Orally Once a day Active IMMUNIZATIONS Vaccine Route Administration Date Status Comme nts Influenza Unknown 10/05/2018 Refused SOCIAL HISTORY Sex Assigned At : Social History Observation Description Sex Assigned At Unknown Alcohol Screen Question Answer Notes Did you have a drink containing alcohol in the p ast year? No Points 0 Interpretation Negative PROBLEMS Problem Type ICD Code Onset Dates Problem Status W/U Status Risk SNOMED Code Notes Problem Encounter for screening for malignant neoplasm of colon (Z12.11) Active confirmed 747438446 Problem Diverticulosis of large intestine without perforation or abscess without bleeding (K57.30) Active confirmed Diverticul ar disease of colon (876339721) Problem Ulcerative pancolitis without complication (K51.00) Active confirmed 624484165 Problem Ulcerative pancolitis (K51.00) Active confirmed Ulcerative pancolitis (694381966) Encounters Encounter Location Date Provider Diagnosis [facility] [address] [place] [address] 06/02/2024 Marcus Cam PLAN OF TREATMENT Pending Test Test Name Order Date Pathology 04/29/2023 Future Test Test Name Order Date COLONOSCOPY 08/01/2014 COLONOSCOPY 10/05/2018 COLONOSCOPY 02/05/2023 Next Appt Details Provider Name:Marcus Cam , 10/05/2024 01:40:00 PM, [address], [address], [place], [address], Insurance Providers Payer Name Payer Address Payer Phone Subscriber Number Group Number Insured Name Patient Relationship to Insured Coverage Start Date Coverage End Date [employer] [address] [address] [place] [address] [id number] AUGUST, JUAN C Self - patient is the insured [place] [address] [place] [id number] AUGUST, JUAN C Self - patient is the insured MEDICAL (GENERAL) HISTORY Medical History History ICD Code Most recent colonosocpy was in 02/2015--no active colitis and no dysplasia, no polyps HIV infection, diagnosed in the s- ees Dr. Robert Asthma Hyperlipidemia Bipolar disease/Depression Ulcerative colitis--diagnose d in 1996-pancolitis--colonoscopies in 2004, 2008, 2011, 2014 Denies [place],DM,CVA,renal disease Urinary incontinence-mild Negative colonoscopy in 07/2019--no colit is, biopsies negative for dysplasia Surgical History Surgery Date(Month/Year)
--- OUTSIDE RECORDS SUMMARY | 2024-06-15 16:31 | XMS_ITS ---
Author Organization [facility] Address [address] [place] [address] Care Team Providers Care Awake Overnight Monitor Name Role Phone Swapna Chin MD Primary Care Provider Marcus Dong [phone] REASON FOR VISIT r/s jun appt Encounters Encounter Location Date Provider Diagnosis [facility] [address] [place] [address] 06/02/2024 Marcus Cam PLAN OF TREATMENT Next Appt Details Provider Name:Marcus Cam , 10/05/2024 01:40:00 PM, [address], [address], [place], [address],
--- OUTSIDE RECORDS SUMMARY | 2024-06-15 16:32 | XMS_ITS ---
Author Organization [facility] Address [address] [place] [address] Care Team Providers Care Billet Worker Name Role Phone Swapna Chin MD Primary Care Provider Marcus Dong [phone] REASON FOR VISIT ulcerative pancolitis,screening PROBLEMS Problem Type ICD Code Onset Dates Problem Status W/U Status Risk SNOMED Code Notes Problem Ulcerative pancolitis (K51.00) Active confirmed Ulcerative pancolitis (216901079) Problem Diverticulosis of large intestine without perforation or abscess without bleeding (K57.30) Active confirmed Diverticul ar disease of colon (862411511) Encounters Encounter Location Date Provider Diagnosis [facility] [address] [place] [phone] 04/29/2023 Marcus Cam Ulcerative pancoli tis K51.00 ; Diverticulosis of large intestine without perforation or abscess without bleeding K57.30 and Other hemorrhoids K64.8 ASSESSMENTS Encounter Date Diagnosis Assessment Notes Treatment Notes Treatment Clinical Notes 04/29/2023 Ulcerative pancoliti s (ICD-10 - K51.00) 04/29/2023 Diverticulosis of large intestine without perforation or abscess without bleeding (ICD-10 - K57.30) 04/29/2023 Other hemorrhoids (ICD-10 - K64.8) PLAN OF TREATMENT Next Appt Details Provider Name:Marcus Cam , 10/05/2024 01:40:00 PM, [address], [address], [place], [address],
== END 2024-06-15 15:41 | disposition home or self-care (01) ==
PROVIDERS: PCP Internal Medicine; Visit Provider Internal Medicine
DX: Z21 Asymptomatic human immunodeficiency virus [HIV] infection status (principal)
CPT/HCPCS: 99214

== ENCOUNTER → 2024-06-15 14:16 | Outpatient (BNVA) | payer OTHER, MEDICAID, SELFPAY | PROVIDERS: PCP Internal Medicine; Visit Provider Internal Medicine ==

== ENCOUNTER 2024-07-07 08:47 | Outpatient (AMB) | payer OTHER, MEDICAID, SELFPAY ==
[2024-07-07 08:55] VITALS: BP 122/78; PULSE 100; O2SAT 98; BMI 21.8
--- NOTE | 2024-07-07 08:55 | MHC.PC.OV ---
Vital Signs 07/07/24 08:55 Height 5 ft 7 in Weight 139 lb BMI 21.8 BP 122/78 Blood Pressure Location Lt brachial Position Sitting Pulse 100 Pulse Source Pulse Oximeter Pulse Oximetry (%) 98 Oxygen Delivery Method Room Air Intake Visit Reasons: 6 Month Follow Up Allergies barium sulfate Allergy (Severe, Verified 07/07/24 08:55) suicide ideation varenicline [From CHANTIX] Allergy (Severe, Verified 07/07/24 08:55) DEPRESSION, suicidal ideation gabapentin Allergy (Unknown, Verified 07/07/24 08:55) Unknown Tobacco use date assessed: 07/07/24 Fall risk assessment: No Falls in past year Last assessed Fall Risk: 07/07/24 Dental Screening Dental Screen Date: 07/07/24 Did you have a dental visit in the last 12 months?: Yes Did you have a dental problem in the last 6 months where you did not have access to dental care?: No Was dental information given to patient?: Patient has dentist HPI 6 Month Follow Up HPI Details The patient is a 64-year-old female presenting for a follow-up related to her chronic medical conditions and recent gastroesophageal symptoms. She has a history of HIV, which is currently well-managed on Bictarvy, with the most recent CD4 count of 1055 and an undetectable viral load. She is also living with bipolar disorder and receives ongoing care from a behavioral health provider. Her past medical history includes ulcerative colitis, hypercholesterolemia, osteoporosis, and COPD, which contribute to her overall health complexity. The patient has a significant history of smoking and currently vapes, although advised to quit. She was seen in December 2023 for her medical annual wellness visit, with her last colonoscopy in April 2023 and a mammogram in July 2023. Bone density was last assessed in January 2024, revealing osteoporosis predominantly affecting the spine. She is on a regimen including simvastatin for cholesterol, meloxicam for pain, and vitamin D supplementation. Recent upper gastrointestinal (GI) evaluations revealed dysphagia, erosive esophagitis, and erosive gastritis. A barium swallow indicated mucosal granularity and contrast pooling correlating with esophagitis, alongside moderate disorganization in esophageal peristalsis with mild narrowing at the gastroesophageal junction. Recommendations included continued omeprazole use and further gastroenterological evaluation. She reports improvement in heartburn but occasionally experiences regurgitation. Lifestyle factors like vaping and coffee consumption were discussed regarding their impact on esophagitis. Currently, the patient expresses difficulty in quitting smoking completely. Despite her multiple chronic issues, she perceives her health as generally stable and reported an improvement in anxiety levels. Additionally, she mentioned the presence of a cataract in her left eye, which is not yet significantly impairing her vision, but it needs monitoring. [facility] Medical History Asthma Cough HPV test positive Mixed incontinence Tobacco abuse Hypercholesterolemia HIV (human immunodeficiency virus infection) Bipolar disorder Ulcerative colitis Surgical History History of colonoscopy History of hemorrhoidectomy Family History Father No problems noted. Mother No problems noted. Social History Housing: Apartment Alcohol intake: never Patient Tobacco Use Status: Current someday Tobacco user Tobacco use type: Cigarette Cigarette Packs Per Day: 1 Cigarettes Per Day: 15 Years Smoked: stopped september and using vape- Packs Per Year: 0 Packs per year/per ci.00 e-Cigarette/Vaping Use: Never Used Second Hand Smoke Exposure: No service: No Current occupational status: unemployed Cognitive needs: No Hearing needs: No Vision needs: No Questionnaire PHQ-9 Over the last 2 weeks, how often have you been bothered by any of the following problems? 1. Little interest or pleasure in doing things: not at all 2. Feeling down, depressed, or hopeless: several days 3. Trouble falling or staying asleep, or sleeping too much: not at all 4. Feeling tired or having little energy: several days 5. Poor appetite or overeating: more than half the days 6. Feeling bad about yourself - or that you are a failure or have let yourself or your family down: nearly every day 7. Trouble concentrating on things, such as reading the newspaper or watching television: not at all 8. Moving or speaking so slowly that other people could have noticed. Or the opposite - being so fidgety or restless that you have been moving around a lot more than usual: not at all 9. Thoughts that you would be better off or of hurting yourself in some way: not at all Total score: 7 Depression Screening Interpretation: Positive Depression Screening Done: Yes Source: Developed by Chelsea Chung Kurt Kroenke and colleagues, with an educational arsen from [facility]. Thrive Questionnaire Date Thrive assessed: 07/07/24 I am a: Patient What is your living situation today?: I have a steady place to live Within the past 12 months, did the food you bought not last and you didn't have the money to get more?: Never true Within the past 12 months, did you worry whether your food would run out before you got money to buy more?: Never true Do you have trouble paying for medicines?: No Do you have trouble getting transportation to medical appointments?: No Do you have trouble paying your heating and electricity bill?: No Do you have trouble taking care of your child, family member or friend?: No Do you have trouble with day-to-day activities such as bathing, preparing meals, shopping, managing finances, etc.?: No Are you currently unemployed and looking for a job?: No Are you interested in more education?: No Currently or been in a relationship where the following occur: No concerns reported THRIVE Score: 0 AUDIT C Alcohol Use Questionnaire (AUDIT-C) 1. How often do you have a drink containing alcohol?: Monthly or less 2. How many drinks containing alcohol do you have on a typical day when you are drinking?: 1 or 2 Total Score: 1 Score Reviewed/Action Taken: No PHAM-7 AMB Questionnaire PHAM-7 Date PHAM - 7 assessed: 07/07/24 Feeling nervous, anxious, or on edge: 0 = Not at all Not being able to stop or control worryin = Not at all Worrying too much about different things: 0 = Not at all Trouble relaxin = Not at all Being so restless that it is hard to sit still: 0 = Not at all Becoming easily annoyed or irritable: 0 = Not at all Feeling afraid as if something awful might happen: 0 = Not at all Total PHAM-7 score (0-4 normal; 5-9 mild; 10-14 moderate; 15-21 severe): 0 Source: Developed by Chelsea Chung Kurt Kroenke and colleagues, with an educational arsen from [facility]. Physical exam (Primary Care) Vital Signs: Last Vital Signs Pulse 100 07/07/24 08:55 BP 122/78 07/07/24 08:55 Pulse Ox 98 07/07/24 08:55 Oxygen Delivery Method Room Air 07/07/24 08:55 BMI result Body Mass Index 21.8 Tobacco/Smoking Status: Tobacco use Status Tobacco use date assessed 07/07/24 07/07/24 09:00 Patient Tobacco Use Status Current someday Tobacco 07/07/24 09:00 Tobacco use type Cigarette 07/07/24 09:00 e-Cigarette/Vaping Use Never Used 07/07/24 09:00 PHQ-9: PHQ-9 Score PHQ-9: Total score 7 07/07/24 09:12 Depression Screening Interpretation: Positive Thrive Assessment: Date of Thrive Assessment Date Thrive assessed 07/07/24 07/07/24 09:00 Currently or been in a relationship where the following occur: No concerns reported Const General: alert; No acute distress Eyes Conjunctivae: conjunctivae normal Resp Auscultation: clear to auscultation bilaterally Cardio Rate: regular rate Rhythm: regular rhythm GI Inspection: Yes normal to inspection Extrem General: Yes normal to inspection and No edema Coding Level of Care Code Est Pt Level 4 (16850) Complex EM visit Add On G2211 Diagnoses Asymptomatic HIV infection, with no history of HIV-related illness Z21 HIV symptom status: asymptomatic, with no history of HIV-related illness Tobacco abuse Z72.0 Bipolar affective disorder, current episode mixed, current episode severity unspecified F31.60 Active/Remission status: currently active Current bipolar episode type: mixed Current episode severity: unspecified Hypercholesterolemia E78.00 Erosive esophagitis K22.10 Gastroesophageal reflux disease without esophagitis K21.9 Esophagitis presence: without esophagitis Assessment & Plan Assessment & Plan (1) HIV (human immunodeficiency virus infection): Comment: She is doing well and has no concerns. CD4 count is 1055 and viral load undetectable Code(s): B20 - Human immunodeficiency virus [HIV] disease Category: Medical Qualifiers: HIV symptom status: asymptomatic, with no history of HIV-related illness Qualified Code(s): Z21 - Asymptomatic human immunodeficiency virus [HIV] infection status Plan: Continue to follow-up with comprehensive care and on Biktarvy numbers are better (2) Tobacco abuse: Code(s): Z72.0 - Tobacco use Category: Medical Plan: Patient is strongly advised to stop smoking- not ready (3) Bipolar disorder: Comment: Has counseling through [facility] (Nasima villanueva , Psychiatry Dr. Hutchins)(12/2021) Code(s): F31.9 - Bipolar disorder, unspecified Category: Medical Qualifiers: Active/Remission status: currently active Current bipolar episode type: mixed Current episode severity: unspecified Qualified Code(s): F31.60 - Bipolar disorder, current episode mixed, unspecified Plan: Continue to follow-up with psychiatry and counseling (4) Hypercholesterolemia: Code(s): E78.00 - Pure hypercholesterolemia, unspecified Category: Medical Plan: Avoid fried foods, chicken skin, eggs, butter margarine, pastries and meat. Be it pork or beef they have a lot of cholesterol on simvastatin (5) Erosive esophagitis: Code(s): K22.10 - Ulcer of esophagus without bleeding Category: Medical Plan: Patient was advised to follow-up with Gastroenterology (6) GERD (gastroesophageal reflux disease): Code(s): K21.9 - Gastro-esophageal reflux disease without esophagitis Category: Medical Qualifiers: Esophagitis presence: without esophagitis Qualified Code(s): K21.9 - Gastro-esophageal reflux disease without esophagitis Plan: Avoid the foods that causes that usually spicy foods, tomato products, juices, coffee, soda and foods that your sensitive to. After eating do not lie down, allow 3-4 hours before in lie down. And keep the head of bed above 30 degrees to avoid the acid from going up. on omeprazole Plan 1. - Encourage smoking cessation strategies, emphasizing the importance of reducing esophageal and gastric mucosal irritation: - Osteoporosis management to include calcium and vitamin D uptake considerations, with dental evaluation prior to initiation of additional osteoporotic therapies. - Monitor and maintain behavioral health follow-ups for bipolar disorder, ensuring medication adherence and addressing psychosocial stressors. - Advise regular ophthalmological evaluations for cataract progression in the left eye. - Ensure timely adherence to health maintenance screenings, including colonoscopy, mammogram, and annual wellness evaluations. - Reassess vaccination requirements for flu and shingles, although the patient currently declines these. Orders: Orders Complete Blood Count Auto Diff Today E78.00 - Pure hypercholesterolemia, unspecified Free T4 (Free Thyroxine) Today E78.00 - Pure hypercholesterolemia, unspecified Thyroid Stimulating Hormone Today E78.00 - Pure hypercholesterolemia, unspecified Vitamin D 25-OH Total Today E78.00 - Pure hypercholesterolemia, unspecified Comprehensive Met. Panel Today E78.00 - Pure hypercholesterolemia, unspecified Lipid Panel Today E78.00 - Pure hypercholesterolemia, unspecified Vitamin B12 and Folate Today E78.00 - Pure hypercholesterolemia, unspecified
--- OUTSIDE RECORDS SUMMARY | 2024-07-07 09:16 | XMS_ITS ---
Author Organization [facility] Address [address] [place] [address] Care Team Providers Care Pilot Highway Patrol Name Role Phone Swapna Chin MD Primary Care Provider Marcus Dong [phone] REASON FOR VISIT r/s jun appt Encounters Encounter Location Date Provider Diagnosis [facility] [address] [place] [address] 06/02/2024 Marcus Cam PLAN OF TREATMENT Next Appt Details Provider Name:Marcus Cam , 10/05/2024 01:40:00 PM, [address], [address], [place], [address],
--- OUTSIDE RECORDS SUMMARY | 2024-07-07 09:16 | XMS_ITS | Patient Health Record ---
Author Organization [facility] Address [address] [place] [address] Care Team Providers Care Facilities Plant Engineer Name Role Phone Swapna Chin MD Primary Care Provider Marcus Dong [phone] ALLERGIES Allergen (clinical drug ingredient) Drug/Non Drug [...] malignant neoplasm of colon (Z12.11) Active confirmed 251409054 Problem Diverticulosis of large intestine without perforation or abscess without bleeding (K57.30) Active confirmed Diverticul ar disease of colon (164858220) Problem Ulcerative pancolitis without complication (K51.00) Active confirmed 023714069 Problem Ulcerative pancolitis (K51.00) Active confirmed Ulcerative pancolitis (259746703) Encounters Encounter Location Date Provider Diagnosis [facility] [address] [place] [address] 06/22/2024 Marcus Cam [facility] [address] [place] [address] 06/02/2024 Marcus Cam PLAN OF TREATMENT Pending Test Test Name Order Date Pathology 04/29/2023 Future Test Test Name Order Date COLONOSCOPY 08/01/2014 COLONOSCOPY 10/05/2018 COLONOSCOPY 02/05/2023 Next Appt Details Provider Name:Marcus Cam , 10/05/2024 01:40:00 PM, [address], [address], [place], [address], Insurance Providers Payer Name Payer Address Payer Phone Subscriber Number Group Number Insured Name Patient Relationship to Insured Coverage Start Date Coverage End Date [employer] [address] [address] [place] [address] [id number] AUGUST, JUAN C Self - patient is the insured MEDICAID OF [employer] [address] [place] [address] [id number] AUGUST, JUAN C Self - patient is the insured MEDICAL (GENERAL) HISTORY Medical History History ICD Code Most recent colonosocpy was in 02/2015--no active colitis and no dysplasia, no polyps HIV infection, diagnosed in the -s ees Dr. Robert Asthma Hyperlipidemia Bipolar disease/Depression Ulcerative colitis--diagnose d in 1996-pancolitis--colonoscopies in 2004, 2008, 2011, 2014 Denies OK,DM,CVA,renal disease Urinary incontinence-mild Negative colonoscopy in 07/2019--no colit is, biopsies negative for dysplasia Surgical History Surgery Date(Month/Year)
--- OUTSIDE RECORDS SUMMARY | 2024-07-07 09:16 | XMS_ITS ---
Author Organization [facility] Address [address] [place] [address] Care Team Providers Care Pipe Coverer Helper Name Role Phone Swapna Chin MD Primary Care Provider Marcus Dong [phone] REASON FOR VISIT ulcer of esophgaus w/o bleeding Encounters Encounter Location Date Provider Diagnosis [facility] [address] [place] [address] 06/22/2024 Marcus Cam PLAN OF TREATMENT Next Appt Details Provider Name:Marcus Cam , 10/05/2024 01:40:00 PM, [address], [address], [place], [address],
--- OUTSIDE RECORDS SUMMARY | 2024-07-07 09:16 | XMS_ITS ---
Author Organization [facility] Address [address] [place] [address] Care Team Providers Care Entry Driver Operator Name Role Phone Swapna Chin MD Primary Care Provider Marcus Dong [phone] REASON FOR VISIT ulcerative pancolitis,screening PROBLEMS Problem Type ICD Code Onset Dates Problem Status W/U Status Risk SNOMED Code Notes Problem Ulcerative pancolitis (K51.00) Active confirmed Ulcerative pancolitis (876133542) Problem Diverticulosis of large intestine without perforation or abscess without bleeding (K57.30) Active confirmed Diverticul ar disease of colon (560823812) Encounters Encounter Location Date Provider Diagnosis [facility] Outpatient [address] [place] [phone] 04/29/2023 Marcus Cam Ulcerative pancoli tis K51.00 [...] Name:Marcus Cam , 10/05/2024 01:40:00 PM, [address], [address], [place], [address],
== END 2024-07-07 09:38 | disposition home or self-care (01) ==
PROVIDERS: PCP Internal Medicine; Visit Provider Internal Medicine
DX: Z21 Asymptomatic human immunodeficiency virus [HIV] infection status (principal); Z72.0 Tobacco use; F31.60 Bipolar disorder, current episode mixed, unspecified; E78.00 Pure hypercholesterolemia, unspecified; K22.10 Ulcer of esophagus without bleeding; K21.9 Gastro-esophageal reflux disease without esophagitis

== ENCOUNTER 2024-08-17 08:48 | Outpatient (REF) | payer MEDICARE, SELFPAY ==
--- NOTE | ~2024-08-17 | FL_ITS ---
EXAMINATION: XR FLUOROSCOPY UPPER GI SERIES CLINICAL INFORMATION: 64-year-old female complaining of dysphagia, GERD, epigastric pains. COMPARISON: 03/03/2024. TECHNIQUE: Fluoroscopic air contrast upper GI examination was performed utilizing standard techniques with thin and thick barium and effervescent granules. Numerous spot images were obtained. Several fluoroscopic image hold cine sequences were also obtained. FINDINGS: UPPER GI SERIES: Lateral cine images of the oropharynx and hypopharynx demonstrate normal swallow mechanism with normal epiglottic inversion and soft palate elevation. No laryngeal penetration, glottic or subglottic aspiration identified. No nasopharyngeal reflux present. Hypopharyngeal structures appear normal without evidence of mass or diverticulum. There was no significant cricopharyngeal achalasia. Dual and single contrast images of the esophagus demonstrate normal caliber and contour. Granular appearance of the esophageal mucosa. No evidence of stricture, mass, or ulcerations identified. Esophageal peristalsis was mildly disordered with feline contraction pattern. There is a small to moderate-sized type I hiatus hernia. There is episodic gastroesophageal reflux identified to the level of the thoracic inlet. Dual contrast and single contrast images of the stomach demonstrated normal contour . There is diffuse mild thickening of the gastric rugal folds. Normal mucosal pattern without evidence of mass or ulceration. Contrast freely passed into the gastric antrum and duodenal bulb without delay. Single and air-contrast images of the duodenal bulb demonstrate no abnormality. Limited images of the duodenal sweep has a normal appearance, course, and mucosal fold appearance. FLUOROSCOPY TIME: 2 minutes, 46 seconds Number of Spot Images:12 Number of cines obtained: 10 DOSE AREA PRODUCT: 2067 uGy-m2 (microgray-meter squared) FL/FL upper GI w air IMPRESSION: 1. Granular appearing esophageal mucosa suggestive of reflux esophagitis. This is persistent from the prior examination, although improved. Small mid esophageal ulcerations are normal evident. 2. Mildly disordered esophageal peristalsis. Feline contraction pattern of the esophagus, in keeping with chronic reflux. 3. Small to moderate-sized type I hiatus hernia. 4. Episodic gastroesophageal reflux to the level of the thoracic inlet. 5. Mild thickening of the gastric rugal folds, suggestive of mild gastritis. This appears improved from the prior exam as well. Foci of mucosal ulcerations have resolved. Electronically signed by: Kevin Kinney MD 08/17/2024 10:49 AM EDT RP
--- OUTSIDE RECORDS SUMMARY | 2024-08-17 09:24 | XMS_ITS ---
Author Organization [facility] Address [address] [place] [address] [place] [address] Care Team Providers Care Flotation Operator Name Role Phone Swapna Chin MD Primary Care Provider Marcus Dong [phone] REASON FOR VISIT ulcer of esophgaus w/o bleeding Encounters Encounter Location Date Provider Diagnosis [facility] [address] [place] [address] 06/22/2024 Marcus Cam Plan Of Treatment Next Appt Details Provider Name:Marcus Cam , 10/05/2024 01:40:00 PM, [address] [place] [address], [address], [place], [address], Progress Notes * JUAN C CASAS MDOB:1960 (64 yo F)Acc No.[id number]:06/22/2024 Progress Notes Patient:?YESSENIA JUAN C Herrera Provider:?Marcus Cam MD :1960???Age:64 Y???Sex:Female D ate:06/22/2024 Address:[address] [place], [place] [phone] Pcp:Swapna Chin MD Subjective: * Chief Complaints: * ???1. 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 * Medical History:? Objective: * Vitals:? Assessment: Plan: * Treatment: * * The named appointment provid er may or may not be the originator of this progress note, and it is not deemed complete until electronically signed by the appointment provider. Sign off status: Pending * Provider:?Marcus Cam MD Date:? 025 Generated for Isaiah goldberg/Yolis/Jeff on:?08/17/2024 09:24 AM EDT
--- OUTSIDE RECORDS SUMMARY | 2024-08-17 09:24 | XMS_ITS ---
Author Organization [facility] Address [address] [place] [address] Care Team Providers Care Product Marketing Intern Name Role Phone Swapna Chin MD Primary Care Provider Marcus Dong [phone] REASON FOR VISIT r/s fe appt Encounters Encounter Location Date Provider Diagnosis [facility] [address] [place] [address] 06/02/2024 Marcus Cam Plan Of Treatment Next Appt Details Provider Name:Marcus Cam , 10/05/2024 01:40:00 PM, [address], [address], [place], [address], Progress Notes * JUAN C CASAS MDOB:1960 (64 yo F)Acc No.[id number]:06/02/2024 Patient:?JUAN C CASAS :1960???Age:64 Y???Sex:Female Address:[address] [place] [address] * true * Date:? Generated for Printi ng/Faxing/eTransmitting on:?08/17/2024 09:23 AM EDT
--- OUTSIDE RECORDS SUMMARY | 2024-08-17 09:24 | XMS_ITS ---
Author Organization [facility] Address [address] [place] [address] Care Team Providers Care Controls Engineer Name Role Phone Swapna Chin MD Primary Care Provider Marcus Dong [phone] REASON FOR VISIT ulcerative pancolitis,screening Problems Problem Type SNOMED Code ICD Code Onset Dates Problem Status W/U Status Risk Notes Problem Ulcerative pancolitis (017274165) Ulcerative pancolitis (K51.00) Active confirmed Problem Diverticular disease of colon (789223528) Diverticulosis of large intestine without perforation or abscess without bleeding (K57.30) Active confirmed Encounters Encounter Location Date Provider Diagnosis [facility] Outpatient [address] [place] [phone] 04/29/2023 Marcus Cam Ulcerative pancoli tis K51.00 ; Diverticulosis of large intestine without perforation or abscess without bleeding K57.30 and Other hemorrhoids K64.8 Assessments Encounter Date Diagnosis (ICD Code) Assessment Notes Treatment Notes Treatment Clinical Notes Section Notes 04/29/2023 Ulcerative pancolitis (ICD-10 - K51.00) 04/29/2023 Diverticulosis of large intestine without perforation or abscess without bleeding (ICD-10 - K57.30) 04/29/2023 Other hemorrhoids (ICD-10 - K64.8) Plan Of Treatment Next Appt Details Provider Name:Marcus Cam , 10/05/2024 01:40:00 PM, [address], [address], [place], [address], Progress Notes * JUAN C CASAS MDOB:1960 (64 yo F)Acc No.[id number]:04/29/2023 COLON WITH MAC Patient:JUAN C CARLOS Provider:?Marcus Cam MD :1960???Age:62 Y???Sex:Female D ate:04/29/2023 Address:[address] [place] [address] Pcp:Swapna Chin MD Subjective: * Chief Complaints: * ???1. Ulcerative pancolitis, screening. * Medical History:? Objective: * Vitals:? Assessment: * Assessment: 1.?Ulcerative pancolitis - K 51.00 (Primary)???2.?Diverticulosis of large intestine without perforation or abscess without bleeding - K57.30???3.?Other hemorrhoids - K64.8??? Plan: * Treatment: * Procedure Codes:?96501 COLON OSCOPY AND BIOPSY * * The named appointment provid er may or may not be the originator of this progress note, and it is not deemed complete until electronically signed by the appointment provider. Sign off status: Pending * Provider:?Marcus Cam MD Date:? 023 Generated for Isaiah goldberg/Yolis/eTadityasmitting on:?08/17/2024 09:24 AM EDT
--- OUTSIDE RECORDS SUMMARY | 2024-08-17 09:24 | XMS_ITS | Patient Health Record ---
Author Organization [facility] Address [address] [place] [address] Care Team Providers Care Finishing Department Supervisor Name Role Phone Po Swapna MARCIAL Primary Care Provider Marcus Dong [phone] Allergies Allergen (clinical drug ingredient) Drug/Non Drug Allergy documented on EMR Reaction Allergy Type Onset Date Status varenicline Chantix Unknown Drug Allergy Activ e Reason For Referral No Information Medications Medication SIG (Take, Route, Fr equency, Duration) [...] 1 tablet Orally Once a day Active Immunizations Vaccine Route Administration Date Status Comme nts Influenza Unknown 10/05/2018 Refused Social History Alcohol Screen Question Answer Notes Did you have a drink containing alcohol in the p ast year? No Points 0 Interpretation Negative Section Notes: She smokes, and denies alcoh ol use She smokes, and denies alcoh ol use She smokes, and denies alcoh ol use She smokes 1 ppd, and denies alcohol use She smokes 1 ppd, and denies alcohol use Problems Problem Type SNOMED Code ICD Code Onset Dates Problem Status W/U Status Risk Notes Problem 303219082 Encounter for screening for malignant neoplasm of colon (Z12.11) Active confirmed Problem Diverticular disease of colon (820599011) Diverticulosis of large intestine without perforation or abscess without bleeding (K57.30) Active confirmed Problem 392666041 Ulcerative pancolitis without complication (K51.00) Active confirmed Problem Ulcerative pancolitis (955763801) Ulcerative pancolitis (K51.00) Active confirmed Encounters Encounter Location Date Provider Diagnosis [facility] [address] [place] [address] 06/02/2024 Marcus Cam Plan Of Treatment Pending Test Test Name Order Date Pathology 04/29/2023 Future Test Test Name Order Date COLONOSCOPY 08/01/2014 COLONOSCOPY 10/05/2018 COLONOSCOPY 02/05/2023 Next Appt Details Provider Name:Marcus Cam , 10/05/2024 01:40:00 PM, [address], [address], [place], [address], Insurance Providers Payer Name Payer Address Payer Phone Subscriber Number Group Number Insured Name Patient Relationship to Insured Coverage Start Date Coverage End Date [employer] [address] [address] [facility] [place] [address] [id number] AUGUST, JUAN C Self - patient is the insured MEDICAID OF [employer] [address] [place] [phone] [id number] AUGUST, JUAN C Self - patient is the insured Medical (General) History Medical History History ICD Code Most recent colonosocpy was in 02/2015--no active colitis and no dysplasia, no polyps HIV infection, diagnosed in the -s ees Dr. Robert Asthma Hyperlipidemia Bipolar disease/Depression Ulcerative colitis--diagnose d in 1996-pancolitis--colonoscopies in 2004, 2008, 2011, 2014 Denies [place],DM,CVA,renal disease Urinary incontinence-mild Negative colonoscopy in 07/2019--no colit is, biopsies negative for dysplasia Surgical History Surgery Date(Month/Year)
== END 2024-08-17 08:49 | disposition home or self-care (01) ==
LOC: HO.XRAY 08:48
PROVIDERS: PCP Internal Medicine; Visit Provider Internal Medicine
DX: R13.10 Dysphagia, unspecified (principal); K21.9 Gastro-esophageal reflux disease without esophagitis
CPT/HCPCS: 74246

== ENCOUNTER → 2024-08-17 09:17 | Outpatient (BNV) | payer MEDICARE, SELFPAY | PROVIDERS: PCP Internal Medicine; Visit Provider Radiology Diagnostic Radiology | DX: R13.10 Dysphagia, unspecified (principal); K21.9 Gastro-esophageal reflux disease without esophagitis; R10.13 Epigastric pain | CPT/HCPCS: 74246 ==

== ENCOUNTER 2024-08-30 14:36 | Outpatient (REF) | payer MEDICARE, SELFPAY ==
--- OUTSIDE RECORDS SUMMARY | 2024-08-30 17:50 | XMS_ITS ---
Author Organization [facility] Address [address] [place] [address] Care Team Providers Care Mill Recorder Name Role Phone Swapna Chin MD Primary Care Provider Marcus Dong [phone] REASON FOR VISIT ulcerative pancolitis,screening Problems Problem Type SNOMED Code ICD Code Onset Dates Problem Status W/U Status Risk Notes Problem Ulcerative pancolitis (738778695) Ulcerative pancolitis (K51.00) Active confirmed Problem Diverticular disease of colon (014606929) Diverticulosis of large intestine without perforation or abscess without bleeding (K57.30) Active confirmed Encounters Encounter Location Date Provider Diagnosis [facility] [address] [place] [phone] 04/29/2023 Marcus Cam Ulcerative pancoli tis K51.00 [...] 01:40:00 PM, [address], [address], [place], [address], Progress Notes * JUAN C CASAS MDOB:1960 (64 yo F)Acc No.[id number]:04/29/2023 COLON WITH MAC Patient:JUAN C CARLOS Provider:?Marcus Cam MD :1960???Age:62 Y???Sex:Female D ate:04/29/2023 Address:[address] [place] [address] Pcp:Swapna Chin MD Subjective: * Chief Complaints: * ???1. Ulcerative pancolitis, screening. * Medical History:? Objective: * Vitals:? Assessment: * Assessment: 1.?Ulcerative pancolitis - K 51.00 (Primary)???2.?Diverticulosis of large intestine without perforation or abscess without bleeding - K57.30???3.?Other hemorrhoids - K64.8??? Plan: * Treatment: * Procedure Codes:?61218 COLON OSCOPY AND BIOPSY * * The named appointment provid er may or may not be the originator of this progress note, and it is not deemed complete until electronically signed by the appointment provider. Sign off status: Pending * Provider:?Marcus Cam MD Date:? 023 Generated for Isaiah goldberg/Yolis/eTadityasmitting on:?08/30/2024 05:50 PM EDT
--- OUTSIDE RECORDS SUMMARY | 2024-08-30 17:50 | XMS_ITS | Patient Health Record ---
Author Organization [facility] Address [address] [place] [address] Care Team Providers Care Marine Engine Mechanic Name Role Phone Po Swapna MARCIAL Primary Care Provider Marcus Dong [phone] Allergies Allergen (clinical drug ingredient) Drug/Non Drug [...] Problem Status W/U Status Risk Notes Problem 032474013 Encounter for screening for malignant neoplasm of colon (Z12.11) Active confirmed Problem Diverticular disease of colon (478843391) Diverticulosis of large intestine without perforation or abscess without bleeding (K57.30) Active confirmed Problem 094584474 Ulcerative pancolitis without complication (K51.00) Active confirmed Problem Ulcerative pancolitis (646498125) Ulcerative pancolitis (K51.00) Active confirmed Encounters Encounter Location Date Provider Diagnosis [facility] [address] [place] [address] 06/02/2024 Marcus Cam Plan Of Treatment Pending Test Test Name Order Date Pathology 04/29/2023 Future Test Test Name Order Date COLONOSCOPY 08/01/2014 COLONOSCOPY 10/05/2018 COLONOSCOPY 02/05/2023 Next Appt Details Provider Name:Marcus Cam , 10/05/2024 01:40:00 PM, [address], [address], [place], [address], Insurance Providers Payer Name Payer Address Payer Phone Subscriber Number Group Number Insured Name Patient Relationship to Insured Coverage Start Date Coverage End Date [employer] [address] [address] [facility] [place] [address] [id number] AUGUST, JUAN C Self - patient is the insured MEDICAID OF [employer] [address] [place] [phone] [id number] AUGUST, JUAN C Self - patient is the insured Medical (General) History Medical History History ICD Code Most recent colonosocpy was in 02/2015--no active colitis and no dysplasia, no polyps HIV infection, diagnosed in the -s ees Dr. Robert Asthma Hyperlipidemia Bipolar disease/Depression Ulcerative colitis--diagnose d in 1996-pancolitis--colonoscopies in 2004, 2008, 2011, 2014 Denies [place],DM,CVA,renal disease Urinary incontinence-mild Negative colonoscopy in 07/2019--no colit is, biopsies negative for dysplasia Surgical History Surgery Date(Month/Year)
--- OUTSIDE RECORDS SUMMARY | 2024-08-30 17:50 | XMS_ITS ---
Author Organization [facility] Address [address] [place] [address] Care Team Providers Care Mash Tub Cooker Name Role Phone Swapna Chin MD Primary Care Provider Marcus Dong [phone] REASON FOR VISIT r/s fe appt Encounters Encounter Location Date Provider Diagnosis [facility] [address] [place] [address] 06/02/2024 Marcus Cam Plan Of Treatment Next Appt Details Provider Name:Marcus Cam , 10/05/2024 01:40:00 PM, [address], [address], [place], [address], Progress Notes * JUAN C CASAS MDOB:1960 (64 yo F)Acc No.[id number]:06/02/2024 Patient:?JUAN C CASAS :1960???Age:64 Y???Sex:Female Address:[address] [place] [address] * true * Date:? Generated for Printi ng/Faxing/eTransmitting on:?08/30/2024 05:50 PM EDT
--- OUTSIDE RECORDS SUMMARY | 2024-08-30 17:50 | XMS_ITS ---
Author Organization [facility] Address [address] [place] [address] [place] [address] Care Team Providers Care Machine Gun Mechanic Name Role Phone Swapna Chin MD Primary Care Provider Marcus Dong [phone] REASON FOR VISIT ulcer of esophgaus w/o bleeding Encounters Encounter Location Date Provider Diagnosis [facility] [address] [place] [address] 06/22/2024 Marcus Cam Plan Of Treatment Next Appt Details Provider Name:Marcus Cam , 10/05/2024 01:40:00 PM, [address] [place] [address], [address], [place], [address], Progress Notes * JUAN C CASAS MDOB:1960 (64 yo F)Acc No.[id number]:06/22/2024 Progress Notes Patient:?YESSENIA JUAN C Herrera Provider:?Marcus Cam MD :1960???Age:64 Y???Sex:Female D ate:06/22/2024 Address:[address] [place] [address] Pcp:Swapna Chin MD Subjective: * Chief Complaints: [...] MD Date:? 025 Generated for Isaiah goldberg/Yolis/Jeff on:?08/30/2024 05:50 PM EDT
== END 2024-08-30 14:37 | disposition home or self-care (01) ==
LOC: HO.MAMMO 14:36
PROVIDERS: PCP Internal Medicine; Visit Provider Internal Medicine
DX: Z12.31 Encounter for screening mammogram for malignant neoplasm of breast (principal)
CPT/HCPCS: 77063; 77067

== ENCOUNTER → 2024-08-30 14:45 | Outpatient (BNV) | payer MEDICARE, SELFPAY | PROVIDERS: PCP Internal Medicine; Visit Provider Internal Medicine | DX: Z12.31 Encounter for screening mammogram for malignant neoplasm of breast (principal) | CPT/HCPCS: 77063; 77067 ==

== ENCOUNTER 2024-10-20 08:37 | Outpatient (AMB) | payer MEDICARE, SELFPAY ==
[2024-10-20 08:44] VITALS: BP 110/70; BMI 21.8
--- NOTE | 2024-10-20 08:44 | A.OFFVIS_ITS ---
Vital Signs 10/20/24 08:44 Height 5 ft 7 in Weight 139 lb BMI 21.8 BP 110/70 Intake Visit Reasons: Rectal pap/ref Dr. Faulkner Tractor Trailer Technician: Tractor Trailer Technician Present (Kandi) Allergies barium sulfate Allergy (Severe, Verified 10/20/24 08:44) suicide ideation varenicline [From CHANTIX] Allergy (Severe, Verified 10/20/24 08:44) DEPRESSION, suicidal ideation gabapentin Allergy (Unknown, Verified 10/20/24 08:44) Unknown Post menopausal: Yes HPI Comments Details: She is a postmenopausal woman presenting for her new patient annual chair springer examination. Referred by Dr. hCan. She is doing well with no chair springer concerns. Currently not sexually active in years. Attempting to eat a healthy diet with calcium and vitamin D and stays active with exercise. Last pap smear; 2019, negative. Last mammogram; 2023. Hx of colonoscopy. Denies any family history of breast, ovarian or colon cancer. [facility] Medical History Asthma Cough HPV test positive Mixed incontinence Tobacco abuse Hypercholesterolemia HIV (human immunodeficiency virus infection) Bipolar disorder Ulcerative colitis Surgical History History of colonoscopy History of hemorrhoidectomy Family History Father No problems noted. Mother No problems noted. Social History Housing: Apartment Alcohol intake: never Patient Tobacco Use Status: Current someday Tobacco user Tobacco use type: Cigarette Cigarette Packs Per Day: 1 Cigarettes Per Day: 15 Years Smoked: stopped september and using vape- e-Cigarette/Vaping Use: Never Used Second Hand Smoke Exposure: No service: No Current occupational status: unemployed Cognitive needs: No Hearing needs: No Vision needs: No Review of Systems Const All systems reviewed & are unremarkable except as noted in HPI and below Reports as per HPI Eyes Reports no additional complaints ENT Reports no additional complaints Card Reports no additional complaints Resp Reports no additional complaints GI Reports as per HPI and Reports no additional complaints Reports as per HPI Musc Reports no additional complaints Skin/Breast Reports as per HPI Neuro Reports no additional complaints Psych Reports no additional complaints Endo Reports no additional complaints Aristides/Lymph Reports no additional complaints Aller/Immun Reports no additional complaints Physical Exam Vital Signs: Last Vital Signs BP 110/70 10/20/24 08:44 BMI result Body Mass Index 21.8 Const General: cooperative, healthy appearing, no acute distress, well developed and alert Orientation/consciousness: patient oriented x3 HEENT Head: Yes normal to inspection Eyes General: appearance normal, both eyes and all related structures Neck Neck: Yes normal visual inspection Thyroid: Thyroid normal Chest Chest palpation & inspection: normal inspection of the chest and other (no puckering, dimpling, peau de orange, retraction, discharge, masses) Breast/axilla inspection: normal inspection of the breasts Breast/axilla palpation: normal palpation of the breasts Resp Effort & Inspection: normal respiratory effort GI Inspection: Yes normal to inspection Palpation (GI): Soft to palpation Rectal Exam - Female: deferred, Internal hemorrhoid(s) present (Remnants-not inflamed or enlarged) and other (Rectal Pap completed) General: Yes bladder normal to palpation External Female Exam: normal external appearance and normal appearance of the urethra Speculum Exam - Vagina: normal palpation and vagina atrophic Speculum Exam - Cervix: normal palpation and Other cervical findings present (Atrophic changes bled slightly with Pap) Bimanual exam- vagina & uterus: normal bimanual exam, normal palpation, uterine size normal, bladder normal to palpation, normal palpation and non-tender Bimanual Exam- Adnexa, other: no masses Skin General skin exam: no rashes or lesions noted Rashes: no rashes Neuro General: patient oriented x3 Cognition (Neuro): normal cognition Extrem General: Yes normal to inspection Psych Attitude: cooperative Thought process: Normal thought process present Assessment & Plan Assessment & Plan (1) Encounter for well woman exam with routine gynecological exam: Code(s): Z01.419 - Encounter for gynecological examination (general) (routine) without abnormal findings Category: Medical Plan: Discussed: Current recommendations for pap smears per ASCCP guidelines. Pap obtained. Breast awareness, periodic self breast exams and yearly mammogram. Maintain a healthy lifestyle, well balanced diet including Calcium 1,200 mg and Vitamin D 600 IU daily, and routine exercise. Contact the office with any postmenopausal bleeding. Patient verbalizes understanding and agrees to the plan of care. She was given opportunity to ask questions and all questions were answered to the best of my ability. RTO in 1 year for annual chair springer exam. This note is constructed using voice recognition software. While every effort has been made to ensure accuracy, retail director errors may have been included. (2) HIV (human immunodeficiency virus infection): Comment: She is doing well and has no concerns. CD4 count is 1055 and viral load undetectable Code(s): B20 - Human immunodeficiency virus [HIV] disease Category: Medical Qualifiers: HIV symptom status: asymptomatic, with no history of HIV-related illness Qualified Code(s): Z21 - Asymptomatic human immunodeficiency virus [HIV] infection status Plan: Rectal Pap completed, await results for plan of care. Repeat yearly. The patient expressed understanding and agreement with the plan of care. All of her questions and concerns were addressed to the best of my ability. Orders: Orders HPV High risk Today Z01.419 - Encounter for gynecological examination (general) (routine) without abnormal findings, Z21 - Asymptomatic human immunodeficiency virus [HIV] infection status Pap Smear Today Z01.419 - Encounter for gynecological examination (general) (routine) without abnormal findings, Z21 - Asymptomatic human immunodeficiency virus [HIV] infection status Cytology Today Z21 - Asymptomatic human immunodeficiency virus [HIV] infection status Coding Level of Care Code New Pt Prev Care >65yr (96015) Diagnoses Encounter for well woman exam with routine gynecological exam Z01.419 Asymptomatic HIV infection, with no history of HIV-related illness Z21 HIV symptom status: asymptomatic, with no history of HIV-related illness
--- OUTSIDE RECORDS SUMMARY | 2024-10-20 09:00 | XMS_ITS ---
Author Organization [facility] Address [address] [place] [address] Care Team Providers Care Technology Analyst Name Role Phone Swapna Chin MD Primary Care Provider Marcus Dong [phone] REASON FOR VISIT r/s feb appt Encounters Encounter Location Date Provider Diagnosis [facility] [address] [facility] [address] [place] [address] 06/02/2024 Marcus Cam Plan Of Treatment Next Appt Details Provider Name:Marcus Cam , 12/30/2024 11:00:00 AM, [address] [place] [address] , [place], [place], [phone], Progress Notes * JUAN C CASAS MDOB:1960 (64 yo F)Acc No.[id number]:06/02/2024 Patient:?JUAN C CASAS :1960???Age:64 Y???Sex:Female Address:[address] [place] [address] * true * Date:? Generated for Printi ng/Faxing/eTransmitting on:?10/20/2024 09:00 AM EDT
== END 2024-10-20 09:16 | disposition home or self-care (01) ==
LOC: HO.HWS 08:37
PROVIDERS: PCP Internal Medicine; Visit Provider Advanced Practice Midwife
DX: Z01.419 Encounter for gynecological examination (general) (routine) without abnormal findings (principal); Z21 Asymptomatic human immunodeficiency virus [HIV] infection status
CPT/HCPCS: 99387; 99459

== ENCOUNTER 2024-10-20 08:37 | Outpatient (REF) | payer MEDICARE, SELFPAY ==
[2024-10-25 12:56] LABS: HPV Genotype 16 Negative (Negative); HPV Genotype 18 Negative (Negative); HPV High Risk Negative (Negative)
== END 2024-10-20 08:38 | disposition home or self-care (01) ==
LOC: HO.LNP 08:37
PROVIDERS: PCP Internal Medicine; Visit Provider Advanced Practice Midwife
DX: Z01.419 Encounter for gynecological examination (general) (routine) without abnormal findings (principal); Z21 Asymptomatic human immunodeficiency virus [HIV] infection status
CPT/HCPCS: 87626; 88112; 88175; 99387; 99459

== ENCOUNTER 2024-12-01 14:01 | Outpatient (REF) | payer MEDICARE, SELFPAY ==
[2024-12-01 14:22] LABS: MANUAL DIFF FLAG NO
[2024-12-01 15:10] LABS: Hematocrit 36.7 % (37.0-47.0); Hemoglobin 12.5 g/dl (12.0-16.0); Imm Gran Abs Auto 0.01 X10*3/uL (0.00-0.03); Imm Gran Pct Auto 0.2 % (0.0-0.4); Lymphocytes Absolute Auto 2.5 X10*3/uL (1.2-4.9); Mean Corpuscular HGB Conc 34.1 g/dl (31.0-35.0); Mean Corpuscular Hemoglobin 33.3 pg (27.0-33.0); Mean Corpuscular Volume 97.9 fL (80.0-98.0); NRBC Abs Auto 0.000 X10*3/uL (0.0-0.012); NRBC Pct Auto 0.0 /100WBC (0.0-0.2); Platelet Count 257 X10*3/uL (160-400); Red Blood Count 3.75 X10*6/uL (4.20-5.50); White Blood Count 5.9 X10*3/uL (4.8-10.8)
[2024-12-01 15:35] LABS: Alanine Aminotransferase 29 U/L (0-31); Albumin Level 4.4 g/dL (3.5-5.0); Alkaline Phosphatase 99 U/L (39-117); Anion Gap 13 (12-20); Aspartate Amino Transferase 38 U/L (5-31); Blood Urea Nitrogen 16 mg/dL (9-16); Calcium 9.3 mg/dL (8.4-10.2); Carbon Dioxide 28 mmol/L (22-29); Chloride 106 mmol/L (96-108); Estimated Glomerular Filt Rate 60; Potassium 4.5 mmol/L (3.3-5.1); Sodium 142 mmol/L (135-145); Total Protein 6.7 g/dL (6.5-8.0)
[2024-12-04 10:23] LABS: HIV RNA PCR Qn Copies NOT DETECTED copies/mL (NOT DETECTED); HIV RNA PCR Qn Log Copies NOT DETECTED (NOT DETECTED)
[2024-12-06 21:09] LABS: Absolute CD3 Count 2252 cells/uL (840-3060); Absolute CD8 Count 844 cells/uL (180-1170); Percent CD3 Cells 81 % (57-85); Percent CD8 Cells 30 % (12-42)
== END 2024-12-01 14:02 | disposition home or self-care (01) ==
LOC: HO.LAB 14:01
PROVIDERS: Visit Provider Internal Medicine
DX: Z21 Asymptomatic human immunodeficiency virus [HIV] infection status (principal)
CPT/HCPCS: 36415; 80048; 80076; 85025; 86359; 86360; 87536

== ENCOUNTER 2024-12-12 09:52 | Outpatient (AMB) | payer MEDICARE, SELFPAY ==
--- OUTSIDE RECORDS SUMMARY | 2024-06-22 11:20 | XMS_ITS ---
Author Organization [facility] Address [address] [facility] [address] [place] [address] Care Team Providers Care Records Administrator Name Role Phone Swapna Chin MD Primary Care Provider Marcus Dong [phone] REASON FOR VISIT ulcer of esophgaus w/o bleeding Encounters Encounter Location Date Provider Diagnosis [facility] [address] [facility] [address] [place] [address] 06/22/2024 Marcus Cam Plan Of Treatment Next Appt Details Provider Name:Marcus Cam , 12/30/2024 11:00:00 AM, [address] [place] [address] , [place], [place], [phone], Progress Notes * JUAN C CASAS MDOB:1960 (64 yo F)Acc No.[id number]:06/22/2024 Progress Notes Patient: CAROLE ZAMBRANOMARY Herrera Provider: Mariana Cam MD :1960 A ge:64 Y S ex:Female Date:06/22/2024 Address:[address] [place], [place] [phone] Pcp:Swapna Chin MD Subjective: * Chief Complaints: [...] Cam MD Date: 0 06/22/2024 Generated for Isaiah goldberg/Yolis/Elieitting on: 0 12/12/2024 10:50 AM EDT
[2024-12-12 10:03] VITALS: BP 126/78; PULSE 78; O2SAT 98; BMI 22.9
--- NOTE | 2024-12-12 10:03 | A.OFFVIS_ITS ---
Vital Signs 12/12/24 10:03 Height 5 ft 7 in Weight 146 lb BMI 22.9 BP 126/78 Pulse 78 Pulse Oximetry (%) 98 Intake Visit Reasons: 6 month hiv labs Allergies barium sulfate Allergy (Severe, Verified 12/12/24 10:05) suicide ideation varenicline (From CHANTIX) Allergy (Severe, Verified 12/12/24 10:05) DEPRESSION, suicidal ideation gabapentin Allergy (Unknown, Verified 12/12/24 10:05) Unknown HPI HPI 6 month hiv labs: Details: She has CD4 count 1443 and viral load undetectable on 12/01. She has excellent adherence and is keeping up with health care maintenance. [facility] Medical History Asthma Cough HPV test positive Mixed incontinence Tobacco abuse Hypercholesterolemia HIV (human immunodeficiency virus infection) Bipolar disorder Ulcerative colitis Surgical History History of colonoscopy History of hemorrhoidectomy Family History Father No problems noted. Mother No problems noted. Social History Housing: Apartment Alcohol intake: never Patient Tobacco Use Status: Current someday Tobacco user Tobacco use type: Cigarette Cigarette Packs Per Day: 1 Cigarettes Per Day: 15 Years Smoked: stopped september and using vape- e-Cigarette/Vaping Use: Never Used Second Hand Smoke Exposure: No service: No Current occupational status: unemployed Cognitive needs: No Hearing needs: No Vision needs: No Review of Systems Const All systems reviewed & are unremarkable except as noted in HPI and below Physical Exam Vital Signs: Last Vital Signs Pulse 78 12/12/24 10:03 BP 126/78 12/12/24 10:03 Pulse Ox 98 12/12/24 10:03 BMI result Body Mass Index 22.9 Const General: cooperative Orientation/consciousness: patient oriented x3 HEENT Head: Yes normal to inspection Mouth: Normal oral and palatal mucosa present Eyes General: appearance normal, both eyes and all related structures Pupils: Equal, round and reactive pupils present Resp Effort & Inspection: normal respiratory effort Cardio Rate: regular rate Rhythm: regular rhythm GI Palpation (GI): Soft to palpation and nontender General: Yes no CVA tenderness Back/Spine/Pelvis Back: no CVA tenderness Skin General skin exam: no rashes or lesions noted Neuro General: patient oriented x3 Cranial nerves: Yes CN's II-XII intact bilaterally and Yes Equal, round and reactive pupils present Extrem General: Yes normal to inspection Psych Appearance: grossly normal Assessment & Plan Assessment & Plan (1) HIV (human immunodeficiency virus infection): Comment: She is doing well and has no concerns. Viral load is undetectable. Code(s): B20 - Human immunodeficiency virus [HIV] disease Category: Medical Qualifiers: HIV symptom status: asymptomatic, with no history of HIV-related illness Qualified Code(s): Z21 - Asymptomatic human immunodeficiency virus [HIV] infection status Plan: Continue Biktarvy. Check labs in six months and did write for Biktarvy. Coding Level of Care Code Est Pt Level 4 (59223) Diagnoses Asymptomatic HIV infection, with no history of HIV-related illness Z21 HIV symptom status: asymptomatic, with no history of HIV-related illness
== END 2024-12-12 11:13 | disposition home or self-care (01) ==
LOC: HO.HID 09:52
PROVIDERS: Visit Provider Internal Medicine
DX: Z21 Asymptomatic human immunodeficiency virus [HIV] infection status (principal)
CPT/HCPCS: 99214

== ENCOUNTER → 2024-12-12 09:52 | Outpatient (BNVA) | payer MEDICARE, SELFPAY | PROVIDERS: Visit Provider Internal Medicine | DX: Z21 Asymptomatic human immunodeficiency virus [HIV] infection status (principal) | CPT/HCPCS: 99212 ==

== ENCOUNTER 2024-12-30 10:23 | Day surgery (SDC) | payer MEDICARE, SELFPAY ==
--- OUTSIDE RECORDS SUMMARY | 2024-06-22 11:20 | XMS_ITS ---
Author Organization [facility] Address [address] [facility] [address] [place] [address] Care Team Providers Care Metal Tile Setter Name Role Phone Swapna Chin MD Primary Care Provider Marcus Dong [phone] REASON FOR VISIT ulcer of esophgaus w/o bleeding Encounters Encounter Location Date Provider Diagnosis [facility] [address] [facility] [address] [place] [address] 06/22/2024 Marcus Cam Plan Of Treatment Next Appt Details Provider Name:Marcus Cam , 12/30/2024 11:00:00 AM, [address] [place] [address] , [place], [place], [phone], Progress Notes * JUAN C CASAS MDOB:1960 (64 yo F)Acc No.[id number]:06/22/2024 Progress Notes Patient: CAROLE ZAMBRANOMARY Herrera Provider: Mariana Cam MD :1960 A ge:64 Y S ex:Female Date:06/22/2024 Address:[address] [place], [place] [phone] Pcp:Swapna Chin MD Subjective: * Chief Complaints: [...] 06/22/2024 Generated for Isaiah goldberg/Yolis/Elieitting on: 0 12/05/2024 07:51 AM EDT
[2024-12-28 13:48] VITALS: BMI 20.7
--- NOTE | 2024-12-28 14:32 | HO.ANESPROP2 ---
Documented by User: Tamiko Sunshine NP 12/28/24 14:33 HPI - Anesthesia Eval Consult details Narrative: 64yo F for Upper Endoscopy PMFSH Active Problems Active Problems: All Active Problems Encounter for well woman exam with routine gynecological exam (Acute) Erosive esophagitis (Acute) Erosive gastritis (Acute) GERD (gastroesophageal reflux disease) (Acute) Low back pain (Acute) Gait instability (Acute) Medicare annual wellness visit, subsequent (Acute) Blood pressure elevated without history of HTN (Acute) COPD (chronic obstructive pulmonary disease) (Acute) Family history of abdominal aortic aneurysm (AAA) (Acute) Biceps tendonitis on left (Acute) Benign positional vertigo (Acute) Shoulder pain, left (Acute) Numbness of left hand (Acute) Breast cancer screening by mammogram (Acute) Osteoporosis (Acute) Guaiac positive stools (Acute) Annual physical exam (Acute) HIV (human immunodeficiency virus infection) (Acute) Cough (Acute) Hypercholesterolemia (Acute) HPV test positive (Acute) Mixed incontinence (Acute) Tobacco abuse (Acute) Bipolar disorder (Acute) Ulcerative colitis (Acute) Past Medical History Medical History Asthma Cough HPV test positive Mixed incontinence Tobacco abuse Hypercholesterolemia HIV (human immunodeficiency virus infection) Bipolar disorder Ulcerative colitis Family History Family History Father No problems noted. Mother No problems noted. Family history of problems with anesthesia: No Surgical History Surgical History History of colonoscopy History of hemorrhoidectomy History of Problems with Anesthesia: No Social History Social History Housing: Apartment Are you a primary nurse behavioral health care to a significant other at home: No Do you presently have visiting nurse or other home services: No Alcohol intake: never Patient Tobacco Use Status: Current everyday Tobacco user Tobacco use type: Cigarette Cigarette Packs Per Day: 1 Cigarettes Per Day: 15 Years Smoked: stopped september and using vape- Smoked in Last 30 Days: Yes e-Cigarette/Vaping Use: Never Used Patient Interested in Nicotine Replacement: No Second Hand Smoke Exposure: No Substance Use Frequency: Daily Have you been hit, kicked, punched, or otherwise hurt by someone within the past year? If so, by whom?: No Are you DNR?: No Advance Directives: No Advance Directives Information Provided: Yes Poor oral hygiene: No service: No Current occupational status: unemployed Cognitive needs: No Hearing needs: No Vision needs: No Meds Allergies Allergy/AdvReac Type Severity Reaction Status Date / Time barium sulfate Allergy Severe suicide Verified 12/30/24 10:48 ideation varenicline (From CHANTIX) Allergy Severe DEPRESSION, Verified 12/30/24 10:48 suicidal ideation gabapentin Allergy Unknown Unknown Verified 12/30/24 10:48 Home Medications ?Medication ?Instructions ?Recorded ?Confirmed ?Last Taken ?Type lamotrigine 200 mg tablet 200 mg PO DAILY 01/07/21 12/28/24 Unknown History fluoxetine 40 mg capsule 40 mg PO DAILY 06/15/24 12/28/24 Unknown History Exam Height,Weight and Vital Signs: Height 5 ft 9.5 in Weight 64.592 kg Pertinent Lab Results Pertinent Lab Results: Laboratory Tests 12/01/24 14:20 WBC 5.9 Hgb 12.5 Hct 36.7 L Plt Count 257 Sodium 142 Potassium 4.5 Chloride 106 Carbon Dioxide 28 BUN 16 Creatinine 0.94 Assessment and Plan Assessment Anesthesia Assessment: Chart Reviewed Final Anesthetic Review Family History of Problems with Anesthesia: No History of Problems with Anesthesia: No Documented by User: Sobia Juan MD 12/30/24 11:11 [facility] Past Medical History Medical History Asthma Cough HPV test positive Mixed incontinence Tobacco abuse Hypercholesterolemia HIV (human immunodeficiency virus infection) Bipolar disorder Ulcerative colitis Family History Family History Father No problems noted. Mother No problems noted. Surgical History Surgical History History of colonoscopy History of hemorrhoidectomy Social History Social History Housing: Apartment Are you a primary nurse behavioral health care to a significant other at home: No Do you presently have visiting nurse or other home services: No Alcohol intake: never Patient Tobacco Use Status: Current everyday Tobacco user Tobacco use type: Cigarette Cigarette Packs Per Day: 1 Cigarettes Per Day: 15 Years Smoked: stopped september and using vape- Smoked in Last 30 Days: Yes e-Cigarette/Vaping Use: Never Used Patient Interested in Nicotine Replacement: No Second Hand Smoke Exposure: No Substance Use Frequency: Daily Have you been hit, kicked, punched, or otherwise hurt by someone within the past year? If so, by whom?: No Are you DNR?: No Advance Directives: No Advance Directives Information Provided: Yes Poor oral hygiene: No service: No Current occupational status: unemployed Cognitive needs: No Hearing needs: No Vision needs: No Meds Allergies Allergy/AdvReac Type Severity Reaction Status Date / Time barium sulfate Allergy Severe suicide Verified 12/30/24 10:48 ideation varenicline (From CHANTIX) Allergy Severe DEPRESSION, Verified 12/30/24 10:48 suicidal ideation gabapentin Allergy Unknown Unknown Verified 12/30/24 10:48 Home Medications ?Medication ?Instructions ?Recorded ?Confirmed ?Last Taken ?Type lamotrigine 200 mg tablet 200 mg PO DAILY 01/07/21 12/28/24 Unknown History fluoxetine 40 mg capsule 40 mg PO DAILY 06/15/24 12/28/24 Unknown History Exam Airway Mallampati Class: II TM Dist: >3cm Neck ROM: Limited Heart: rrr Lungs: cta Assessment and Plan Assessment Anesthesia Assessment: Anesthesia Plan Discussed Final Anesthetic Review NPO: Yes ASA Class: III Final Preanesthetic Review: No Changes in Pt Med Stat, Meds/Allgs Chart Reviewed, Consent Obtained/Reviewed and Anes Risks/Benef Reviewed Patient Risk: Intermediate Procedure Risk: Low Anesthetic Plan Anesthetic Plan: MAC: Disposition: Standard PACU
[2024-12-30 10:41] VITALS: BMI 20.8
[2024-12-30 10:57] VITALS: BP 135/79; PULSE 79; RESP 18; TEMP 36.6; O2SAT 96
[2024-12-30] MEDS: Lactated Ringers 1,000 ML 100 ML IVCONT (10:57)
[2024-12-30] MEDS: Albuterol Sulfate (0.083%) 2.5 MG/3 ML VIAL.NEB INHALE (11:05)
[2024-12-30 12:12] VITALS: BP 86/41; PULSE 80; RESP 20; TEMP 36.4; O2SAT 100
[2024-12-30 12:17] VITALS: BP 91/51
--- NOTE | 2024-12-30 12:17 | P.BOP_ITS ---
Brief Operative Note Date of Service: 12/30/24 Pre-op diagnosis: GERD Post-op diagnosis: other (Hiatal hernia, Gastritis, GERD) Procedure: EGD with biopsies Surgeon: Marcus Cam MD Anesthesia: MAC Was an Multineedle Shirrer used for this Procedure?: No Estimated blood loss (mL): 2.0 Pathology: other (A. Gastric antrum B. EG Junction at 35cm) Condition: stable Disposition: PACU
[2024-12-30 12:25] VITALS: BP 101/62; PULSE 78; RESP 18; TEMP 36.1; O2SAT 95
--- NOTE | 2024-12-30 22:39 | OP_ITS ---
DATE OF SERVICE: 12/30/2024 SURGEON: Marcus Cam MD INDICATIONS: The patient presents for evaluation of gastroesophageal reflux and abnormal upper GI series. Full consent was obtained from her for this, including risks of bleeding and perforation. PREOPERATIVE DIAGNOSIS: POSTOPERATIVE DIAGNOSIS: PROCEDURE PERFORMED: Esophagogastroduodenoscopy with biopsies. ESTIMATED BLOOD LOSS: COMPLICATIONS: ANESTHESIA: Monitored anesthesia care. ASSISTANTS: SPECIMENS: PREOPERATIVE DIAGNOSES: Gastroesophageal reflux and abnormal upper GI series. POSTOPERATIVE DIAGNOSES: Gastroesophageal reflux and abnormal upper GI series, hiatal hernia, gastritis. DESCRIPTION OF PROCEDURE: The patient was placed in the left lateral decubitus position. The Olympus video gastroscope was passed in the posterior oropharynx and upper esophagus under direct vision. The scope was passed slowly to the distal esophagus. The gastroesophageal junction appeared at 35 cm. This area had some areas of erythema and edema, but no ulceration, inflammation, nor Mendez's esophagus. There was a [id number]-sized hiatal hernia. The scope was advanced to pylorus and the duodenum was cannulated to the descending portion. The duodenum including the bulb was carefully inspected and appeared normal other than some mild changes of duodenitis with some edema in the duodenal bulb. There were no ulcerations nor mass. The scope was withdrawn back to the stomach. The gastric antrum had some areas of erythema, edema, and mild friability. There was no ulceration, erosions, nor mass. There was good peristalsis. Biopsies were obtained from the antrum. The scope was retroflexed visualizing the proximal stomach carefully, which appeared normal, without any sign of mass or ulceration. Scope was straightened and withdrawn back to the esophagus. Biopsies were obtained at the EG junction at 35 cm. Proximal to this, the esophageal mucosa appeared normal. The scope was withdrawn from the patient. She tolerated the procedure well and was returned to recovery area in stable condition. IMPRESSION: 1. Hiatal hernia, gastroesophageal reflux. 2. Gastritis. 3. Mild duodenitis. PLAN: The results of biopsies will be checked. She has been advised to continue her omeprazole as that is working well for her in regard to symptom relief from the reflux. She will undergo a followup colonoscopy for surveillance in regard to her long-standing ulcerative colitis at the end of 2025. She was advised not to use any aspirin and NSAIDs for another week. She will otherwise see me on a p.r.n. basis. Marcus Cam MD RMTonio/FABIENNE / [phone] EDWAR
== END 2024-12-30 13:05 | disposition home or self-care (01) ==
PROVIDERS: Visit Provider Internal Medicine
PROC: 0DJ08ZZ Inspection of Upper Intestinal Tract, Via Natural or Artificial Opening Endoscopic (ICD-10-PCS; CPT 43235; principal; 2024-12-30 12:00)
DX: K21.9 Gastro-esophageal reflux disease without esophagitis (principal); K29.60 Other gastritis without bleeding; K29.80 Duodenitis without bleeding; K44.9 Diaphragmatic hernia without obstruction or gangrene; B20 Human immunodeficiency virus [HIV] disease; J45.909 Unspecified asthma, uncomplicated; E78.5 Hyperlipidemia, unspecified; Z79.899 Other long term (current) drug therapy; Z79.02 Long term (current) use of antithrombotics/antiplatelets
CPT/HCPCS: 43239; 88305; 88313; 88342; J1100; J2003; J2250; J2704

== ENCOUNTER 2025-01-18 08:33 | Outpatient (AMB) | payer OTHER, MEDICAID, SELFPAY ==
--- OUTSIDE RECORDS SUMMARY | 2024-06-22 11:20 | XMS_ITS ---
Author Organization [facility] Address [address] [place] [address] Care Team Providers Care Ortho Assistant Name Role Phone Swapna Chin MD Primary Care Provider Marcus Dong [phone] REASON FOR VISIT ulcer of esophgaus w/o bleeding Encounters Encounter Location Date Provider Diagnosis [facility] [address] [facility] [address] [place] [phone] 06/22/2024 Marcus Cam Plan Of Treatment No Information Progress Notes * YESSENIAJUAN C MDOB:1960 (64 yo F)Acc No.[id number]:06/22/2024 Progress Notes Patient: JUAN C ZAMBRANO Provider: Mariana Cam MD :1960 A ge:64 Y S ex:Female Date:06/22/2024 Address:[address] [place], [place] [phone] Pcp:Swapna Chin MD Subjective: * Chief Complaints: * 1 . 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 * Medical History: Objective: * Vitals: Assessment: Plan: * Treatment: * * The named appointment provid er may or may not be the originator of this progress note, and it is not deemed complete until electronically signed by the appointment provider. Sign off status: Pending * Provider: Mariana Cam MD Date: 0 06/22/2024 Generated for Printi ng/Faxing/eTransmitting on: 0 01/18/2025 09:03 AM EDT
--- OUTSIDE RECORDS SUMMARY | 2024-12-30 08:00 | XMS_ITS ---
Author Organization [facility] Address [address] [place] [phone] Care Team Providers Care Reference Test Clerk Name Role Phone Swapna Chin MD Primary Care Provider Marcus Dong [phone] REASON FOR VISIT GERD Encounters Encounter Location Date Provider Diagnosis [facility] Outpatient [address] [place] [id number] 12/30/2024 Marcus Cam Plan Of Treatment No Information Progress Notes * JUAN C CASAS MDOB:1960 (64 yo F)Acc No.[id number]:12/30/2024 EGD/MAC Patient: JUAN C ZAMBRANO Provider: Mariana Cam MD :1960 A ge:64 Y S ex:Female Date:12/30/2024 Address:[address] [place], [place] [phone] Pcp:Swapna Chin MD Subjective: * Chief Complaints: * 1 . GERD. * Medical History: Objective: * Vitals: Assessment: Plan: * Treatment: * * The named appointment provid er may or may not be the originator of this progress note, and it is not deemed complete until electronically signed by the appointment provider. Sign off status: Pending * Provider: Mariana Cam MD Date: 12/30/2024 Generated for Isaiah ng/Faxing/eTransmitting on: 0 01/18/2025 09:03 AM EDT
--- NOTE | 2025-01-18 08:36 | A.OFFPC_ITS ---
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: No Accompanied by: Self / Same As Patient Allergies barium sulfate Allergy (Severe, Verified 01/18/25 08:40) suicide ideation varenicline (From CHANTIX) Allergy (Severe, Verified 01/18/25 08:40) DEPRESSION, suicidal ideation gabapentin Allergy (Unknown, Verified 01/18/25 08:40) Unknown Medication List - Last Reconciled 01/18/25 by Swapna Chin MD albuterol sulfate 90 mcg/actuation (Ventolin HFA) 2 puffs inhalation Q6H PRN dwtyywbtw-fetebcds-khgxafa ala 50-200-25 mg (Biktarvy) 1 tab PO DAILY 30 days blood pressure monitor (Blood Pressure Kit) As directed clonazepam 1 mg PO DAILY fluoxetine 40 mg PO DAILY fluticasone furoate-vilanterol 200-25 mcg/dose (Breo Ellipta) 1 inh inhalation DAILY lamotrigine 200 mg PO DAILY omeprazole 20 mg PO DAILY simvastatin 5 mg PO BEDTIME Tobacco use date assessed: 01/18/25 Fall risk assessment: No Falls in past year Last assessed Fall Risk: 01/18/25 Dental Screening Dental Screen Date: 01/18/25 Did you have a dental visit in the last 12 months?: Yes Did you have a dental problem in the last 6 months where you did not have access to dental care?: No Was dental information given to patient?: Patient has dentist [facility] Medical History Asthma Cough HPV test positive Mixed incontinence Tobacco abuse Hypercholesterolemia HIV (human immunodeficiency virus infection) Bipolar disorder Ulcerative colitis Surgical History History of colonoscopy History of hemorrhoidectomy Family History Father No problems noted. Mother No problems noted. Social History (Updated 01/18/25 @ 09:18 by Swapna Chin MD) Housing: Apartment Are you a primary acute care occupational therapist to a significant other at home: No Do you presently have visiting nurse or other home services: No Alcohol intake: never Patient Tobacco Use Status: Current everyday Tobacco user Tobacco use type: Cigarette Cigarette Packs Per Day: 1 Cigarettes Per Day: 15 Years Smoked: stopped september and using vape- VAPE still e-Cigarette/Vaping Use: Never Used Second Hand Smoke Exposure: No service: No Current occupational status: unemployed Cognitive needs: No Hearing needs: No Vision needs: No Questionnaire PHQ-9 Over the last 2 weeks, how often have you been bothered by any of the following problems? 1. Little interest or pleasure in doing things: not at all 2. Feeling down, depressed, or hopeless: several days 3. Trouble falling or staying asleep, or sleeping too much: not at all 4. Feeling tired or having little energy: several days 5. Poor appetite or overeating: several days 6. Feeling bad about yourself - or that you are a failure or have let yourself or your family down: several days 7. Trouble concentrating on things, such as reading the newspaper or watching television: not at all 8. Moving or speaking so slowly that other people could have noticed. Or the opposite - being so fidgety or restless that you have been moving around a lot more than usual: not at all 9. Thoughts that you would be better off or of hurting yourself in some way: not at all Total score: 4 34157 - PHQ-9 Billing: Yes Source: Developed by Drs. Marcus Gonzalez, Chelsea Alcantara, Facundo Barnes and colleagues, with an educational arsen from [employer]. Thrive Questionnaire Date Thrive assessed: 07/07/24 I am a: Patient What is your living situation today?: I choose not to answer this question Within the past 12 months, did the food you bought not last and you didn't have the money to get more?: I choose not to answer this question Within the past 12 months, did you worry whether your food would run out before you got money to buy more?: I choose not to answer this question Do you have trouble paying for medicines?: I choose not to answer this question Do you have trouble getting transportation to medical appointments?: No Do you have trouble paying your heating and electricity bill?: Yes Do you have trouble taking care of your child, family member or friend?: No Do you have trouble with day-to-day activities such as bathing, preparing meals, shopping, managing finances, etc.?: No Are you currently unemployed and looking for a job?: No Are you interested in more education?: No Please select the resources that you would like help with: Utilities Currently or been in a relationship where the following occur: No concerns reported THRIVE Score: 1 AUDIT C Alcohol Use Questionnaire (AUDIT-C) 1. How often do you have a drink containing alcohol?: Monthly or less 2. How many drinks containing alcohol do you have on a typical day when you are drinking?: 1 or 2 3. How often do you have six or more drinks on one occasion?: Never Total Score: 1 PHAM-7 AMB Questionnaire PHAM-7 Date PHAM - 7 assessed: 07/07/24 Feeling nervous, anxious, or on edge: 0 = Not at all Not being able to stop or control worryin = Several days Worrying too much about different things: 1 = Several days Trouble relaxin = Not at all Being so restless that it is hard to sit still: 0 = Not at all Becoming easily annoyed or irritable: 0 = Not at all Feeling afraid as if something awful might happen: 0 = Not at all Total PHAM-7 score (0-4 normal; 5-9 mild; 10-14 moderate; 15-21 severe): 2 Source: Developed by Drs. Marcus Gonzalez, Chelsea Alcantara, Facundo Barnes and colleagues, with an educational arsen from [employer]. PHAM-7 Assessment Billing PHAM-7 Assessment Tool: PHAM-7 Assessment 36730 Review of Systems Const Denies poor appetite and Denies weakness Eyes Denies no additional complaints ENT Reports Normal hearing present, Denies dizziness, Denies nasal congestion, Denies tinnitus and Denies sore throat Card Denies chest pain, Denies syncope, Denies rapid heart rate and Denies dyspnea Resp Denies cough and Denies dyspnea GI Denies change in stool character, Reports constipation, Denies diarrhea, Denies nausea and Denies vomiting Denies urinary frequency, Denies difficulty voiding and Denies dysuria Neuro Reports Normal hearing present, Denies confusion, Denies dizziness, Denies syncope and Denies weakness Psych Denies confusion Physical exam (Primary Care) Vital Signs: Last Vital Signs Pulse 67 01/18/25 08:37 BP 108/62 01/18/25 08:37 Pulse Ox 96 01/18/25 08:37 Oxygen Delivery Method Room Air 01/18/25 08:37 Tobacco/Smoking Status: Tobacco use Status Tobacco use date assessed 01/18/25 01/18/25 08:48 Patient Tobacco Use Status Current everyday Tobacco 01/18/25 09:18 Tobacco use type Cigarette 01/18/25 09:18 e-Cigarette/Vaping Use Never Used 01/18/25 09:18 PHQ-9: PHQ-9 Score PHQ-9: Total score 4 01/18/25 09:12 Thrive Assessment: Date of Thrive Assessment Date Thrive assessed 07/07/24 01/18/25 08:48 Currently or been in a relationship where the following occur: No concerns reported Const General: No confusion Orientation/consciousness: No confusion HENMT Head: Yes normocephalic Ears: external ears normal and TM's normal bilaterally Face and sinus: Yes normal facial exam Mouth: moist mucous membranes Throat: Yes tonsils normal Eyes Conjunctivae: conjunctivae normal Pupils: Equal, round and reactive pupils present and Pupil accommodation reflex normal Direct Ophthalmoscopy: normal light reflex Neck Neck: No lymphadenopathy Thyroid: Thyroid normal Chest Chest palpation & inspection: normal inspection of the chest Resp Effort & Inspection: normal respiratory effort and no audible wheezes Auscultation: clear to auscultation bilaterally, no crackles, no wheezes and lung sounds not diminished Cardio Rate: regular rate Rhythm: regular rhythm Peripheral pulses: radial pulses present and dorsalis pedis present GI Palpation (GI): no masses Auscultation: normal bowel sounds and normoactive bowel sounds Rectal Exam - Female: deferred Skin General skin exam: no rashes or lesions noted Rashes: no rashes Neuro General: No confusion Cranial nerves: Yes Equal, round and reactive pupils present and Yes Normal hearing present Cognition (Neuro): normal cognition Gait exam (Neuro): Normal gait present Motor exam (neuro): 5/5 motor strength present throughout Deep tendon reflexes (DTR's): Right brachioradialis reflex intensity grade: 2+, Left brachioradialis reflex intensity grade: 2+, Right patellar reflex intensity grade: 2+ and Left patellar reflex intensity grade: 2+ Extrem General: No edema Coding Level of Care Code Est Pt Prev Care >65y(62201) Diagnoses Annual physical exam Z00.00 Tobacco abuse Z72.0 Chronic obstructive pulmonary disease, unspecified COPD type J44.9 COPD type: unspecified COPD Asymptomatic HIV infection, with no history of HIV-related illness Z21 HIV symptom status: asymptomatic, with no history of HIV-related illness Gastroesophageal reflux disease without esophagitis K21.9 Esophagitis presence: without esophagitis Bipolar affective disorder, current episode mixed, current episode severity unspecified F31.60 Active/Remission status: currently active Current bipolar episode type: mixed Current episode severity: unspecified Additional Codes PHAM-7 Assessment Billing - PHAM-7 Assessment Tool: PHAM-7 Assessment 34559 ([id number]) PHQ-9 - 27041 - PHQ-9 Billing: Yes ([id number]) Assessment & Plan Assessment & Plan (1) Annual physical exam: Code(s): Z00.00 - Encounter for general adult medical examination without abnormal findings Category: Medical Plan: Patient is advised to eat healthy, keep well hydrated, keep active and have adequate sleep. (2) Tobacco abuse: Code(s): Z72.0 - Tobacco use Category: Medical Plan: Patient is strongly advised to stop smoking! (3) COPD (chronic obstructive pulmonary disease): Code(s): J44.9 - Chronic obstructive pulmonary disease, unspecified Category: Medical Qualifiers: COPD type: unspecified COPD Qualified Code(s): J44.9 - Chronic obstructive pulmonary disease, unspecified Plan: Patient is strongly advised to stop smoking! Patient on albuterol inhaler and Breo (4) HIV (human immunodeficiency virus infection): Comment: She is doing well and has no concerns. Viral load is undetectable. Code(s): B20 - Human immunodeficiency virus [HIV] disease Category: Medical Qualifiers: HIV symptom status: asymptomatic, with no history of HIV-related illness Qualified Code(s): Z21 - Asymptomatic human immunodeficiency virus [HIV] infection status Plan: Continue to follow-up with Infectious. Remains to have a high CD4 with undetectable viral load (5) GERD (gastroesophageal reflux disease): Code(s): K21.9 - Gastro-esophageal reflux disease without esophagitis Category: Medical Qualifiers: Esophagitis presence: without esophagitis Qualified Code(s): K21.9 - Gastro-esophageal reflux disease without esophagitis Plan: Avoid the foods that causes that usually spicy foods, tomato products, juices, coffee, soda and foods that your sensitive to. After eating do not lie down, allow 3-4 hours before in lie down. And keep the head of bed above 30 degrees to avoid the acid from going up. Patient is advised strongly to stop smoking (6) Bipolar disorder: Comment: Has counseling through [facility] (Nasima villanueav , Psychiatry Dr. Hutchins)(12/2021) Code(s): F31.9 - Bipolar disorder, unspecified Category: Medical Qualifiers: Active/Remission status: currently active Current bipolar episode type: mixed Current episode severity: unspecified Qualified Code(s): F31.60 - Bipolar disorder, current episode mixed, unspecified Plan: Continue with counseling and therapy Plan History of Present Illness The patient is a 64-year-old female presenting for a physical examination and management of chronic conditions. The patient has a history of bipolar disorder, which has been managed with clonazepam and fluoxetine. She reports dissatisfaction with her current psychi atrist and plans to change providers. The patient has ulcerative colitis, which has led to dietary modifications over the years. She continues to enjoy chocolate, despite dietary restrictions. The patient is HIV positive and follows up with infectious disease specialists. She is currently on Biktarvy, with a high CD4 count and undetectable viral load, indicating good management of her condition. The patient has hypercholesterolemia, previously managed with simvastatin. Her last cholesterol test in 2022 showed an LDL of 118 mg/dL. The patient has osteoporosis, with the last bone density test conducted in January 2024. The patient has Chronic Obstructive Pulmonary Disease (COPD) and uses an albuterol inhaler and Breo for management. She has been advised to rinse her mouth after using Breo to prevent fungal infections. The patient has a history of gastroesophageal reflux disease (GERD), gastritis, and reactive gastropathy. She is on omeprazole for management and has been advised to avoid certain foods and behaviors that exacerbate reflux. The patient is a smoker and has been advised to quit smoking to improve her overall health and manage her reflux symptoms. Health Maintenance - Colonoscopy scheduled for next year - Mammogram completed in August 2024 - Bone density test conducted in January 2024 - Advised to quit smoking - Advised to rinse mouth after using Breo inhaler Social History - Smoking: Patient is a smoker and has been advised to quit. - Exercise: Engages in yard work and walking for physical activity. - Alcohol: Rarely consumes alcohol, with occasional wine at [facility]. Review of Systems - General: Denies dizziness, nausea, or vomiting. - Cardiovascular: Denies chest heaviness or discomfort. - Respiratory: Denies dyspnea or shortness of breath. - Gastrointestinal: Reports occasional constipation, denies diarrhea or blood in stools. - Genitourinary: Denies nocturia or urinary problems. - Neurological: Denies difficulty swallowing or hearing issues. Physical Exam General: Cooperative, healthy appearing, comfortable, no acute distress and well developed Orientation: Patient oriented x3 Limitations: No limitations Head: Normal to inspection Ears: Hearing grossly normal bilaterally, but patient reports occasional difficulty in noisy environments Nose: Normal external nose present Face and sinus: Normal facial exam Eyes: Appearance normal, both eyes and all related structures Neck: Normal visual inspection and Yes full ROM Respiratory: Normal respiratory effort and able to speak in complete sentences. Clear to auscultation bilaterally Cardiovascular: Regular rate and rhythm. Normal S1 and S2 GI: Normal to inspection. Soft to palpation and nontender Skin: No rashes or lesions noted Neuro: Patient oriented x3 Extremities: Normal to inspection Results - Labs: Normal blood count, no anemia, normal renal function, normal blood sugar, normal liver function, LDL 118 mg/dL (2022), normal thyroid test (2021) - Tests: EGD showed hiatal hernia, GERD, gastritis, mild duodenitis, reactive gastropathy - Diagnostics: Neopragia series showed granular esophageal mucosa suggestive of reflux esophagitis, small mid esophageal observations, mildly disordered esophageal peristalsis, small to moderate size hiatal hernia, thickening of the rugal folds, mild gastritis - HIV: CD4 count 1443, undetectable HIV RNA Plan Patient was informed and verbally consented to the use of an ambient scribe for clinic note documentation during this visit. 1. Bipolar Disorder The patient continues to manage her bipolar disorder with clonazepam and fluoxetine. She expressed dissatisfaction with her current psychiatrist and plans to seek a new provider for better management. 2. Ulcerative Colitis The patient has a history of ulcerative colitis, which has necessitated dietary modifications. She continues to enjoy chocolate despite dietary restrictions. 3. Hiv Positive The patient is HIV positive and is currently managed with Biktarvy. Her CD4 count is 1443, and her HIV RNA is undetectable, indicating effective management of her condition. 4. Hypercholesterolemia The patient has hypercholesterolemia, previously managed with simvastatin. Her last cholesterol test in 2022 showed an LDL of 118 mg/dL. 5. Osteoporosis The patient has osteoporosis, with the last bone density test conducted in January 2024. 6. Chronic Obstructive Pulmonary Disease (Copd) The patient has COPD and uses an albuterol inhaler and Breo for management. She has been advised to rinse her mouth after using Breo to prevent fungal infections. 7. Gastroesophageal Reflux Disease (Gerd) The patient has GERD and is on omeprazole for management. She has been advised to avoid certain foods and behaviors that exacerbate reflux. The patient is strongly advised to quit smoking to improve her reflux symptoms. Discussion Notes During the visit, I discussed the importance of smoking cessation with the patient, particularly in relation to managing her GERD and overall health. We reviewed her current medications, including the need to rinse her mouth after using Breo to prevent fungal infections. I also emphasized the importance of regular follow-ups with her infectious disease specialist for HIV management and encouraged her to continue with her current regimen given her stable CD4 count and undetectable viral load. Patient Instructions - Quit smoking to improve overall health and manage GERD symptoms. - Rinse mouth after using Breo inhaler to prevent fungal infections. - Continue regular follow-ups with infectious disease specialist for HIV management. - Schedule and attend upcoming colonoscopy and mammogram appointments.
[2025-01-18 08:37] VITALS: BP 108/62; PULSE 67; O2SAT 96
--- OUTSIDE RECORDS SUMMARY | 2025-01-18 09:03 | XMS_ITS | Patient Health Record ---
Author Organization [facility] Address [address] [place] [id number] Care Team Providers Care Lien Searcher Name Role Phone Swapna Chin MD Primary Care Provider Marcus Dong [phone] Allergies Allergen (clinical drug ingredient) Drug/Non Drug Allergy documented on EMR Reaction Allergy Type Onset Date Status varenicline Chantix Unknown Drug Allergy Activ e Results Component Value Reference Range Notes Pathology (Not yet reviewed by provider) Interpretation: Performing Lab:[facility], [address] [place] [phone] Notes/Report: Reason For Referral No Information Medications Medication SIG (Take, Route, Frequency, Duration) Notes Start Date End Date Status Breo Ellipta 100-25 MCG/ACT 1 puff Inhal ation Once a day Active Albuterol Sulfate HFA 108 (90 Base) MCG/ACT 1 puff as needed Inhalation every 4 hrs Active Biktarvy 50-200-25 MG 1 tablet Orally On ce a day for 30 day(s) Active clonazePAM 1 MG 1 tablet Orally Once a day Active lamoTRIgine 200 MG 1 tablet Orally Twic e a day for 30 day(s) Active FLUoxetine HCl 40 MG 1 tablet in the mor valery Orally Once a day Active Simvastatin 20 MG 1 tablet in the even ing Orally Once a day Active Omeprazole 20 MG 1 capsule 1/2 to 1 h our before morning meal Orally Once a day Active Meloxicam 7.5 MG 1 tablet Orally Once a day Active Immunizations Vaccine Route Administration Date Status Comme nts Influenza Unknown 10/05/2018 Refused Influenza Unknown 10/05/2024 Refused Social History Alcohol Screen Question Answer [...] smokes 1 ppd, and denies alcohol use Stopped smoking in 2024 but vapes nicotine as of the 09/2024 OV. Denies alcohol use Problems Problem Type SNOMED Code ICD Code Onset Dates Problem Status W/U Status Risk Notes Problem 053779597 Encounter for screening for malignant neoplasm of colon (Z12.11) Active confirmed Problem Diverticular disease of colon (869856027) Diverticulosis of large intestine without perforation or abscess without bleeding (K57.30) Active confirmed Problem Gastroesophageal reflux disease (819471047) GERD (gastroesophageal reflux disease) (K21.9) Active confirmed Problem 715222799 Ulcerative pancolitis without complication (K51.00) Active confirmed Problem Ulcerative pancolitis (003779164) Ulcerative pancolitis (K51.00) Active confirmed Vital Signs Temperature 95.9 degrees Fahrenheit 10/05/2024 Blood pressure diastolic 01 mm Hg 10/05/2024 Height 69.5 in 10/05/2024 Blood pressure systolic 001 mm Hg 10/05/2024 Weight 142.4 lbs 10/05/2024 BMI 20.73 kg/m2 10/05/2024 Procedures Procedure Date Ordered Date Performed Result Body Sit e UPPER GI ENDOSCOPY 10/05/2024 N/A Encounters Encounter Location Date Provider Diagnosis [facility] Outpatient [address] [place] [id number] 12/30/2024 Marcus Cam [facility] [address] [place] [phone] 10/05/2024 Marcus Cam GERD (gastroesophageal reflux disease) K21.9 [facility] [address] [place] [phone] 06/02/2024 Marcus Cam Assessments Encounter Date Diagnosis (ICD Code) Assessment Notes Treatment Notes Treatment Clinical Notes Section Notes 10/05/2024 GERD (gastroesophag eal reflux disease) (ICD-10 - K21.9) Overall, Juan C appears well. Her ulcerative colitis remains in clinical remission without any specific medication. We did review that she will be due for another colonoscopy for surveillance at the end of 2025. In regard to the reflux this seems to be stable and improved on the daily omeprazole. She is not having any worrisome symptoms such as dysphagia or anorexia. The upper GI series does describe some probable reflux and some esophagitis but no other worrisome findings are noted. At this point I did recommend she undergo an upper endoscopy for evaluation given the longstanding reflux with associated longstanding smoking. We reviewed that it would be important to rule out Mendez's esophagus in relation to the reflux and hiatal hernia. Full consent has been obtained for the upper endoscopy, including risks of bleeding and perforation. The procedure will be done with monitored anesthesia care. I did advise her to try to continue to avoid smoking and minimize caffeine. Juan C was comfortable with this plan. Thank you again for allowing me to participate in Juan C's care. I shall continue to keep you advised of her progress. Plan Of Treatment Pending Test Test Name Order Date UPPER GI ENDOSCOPY 10/05/2024 Pathology 04/29/2023 Pathology 12/30/2024 Future Test Test Name Order Date COLONOSCOPY 08/01/2014 COLONOSCOPY 10/05/2018 COLONOSCOPY 02/05/2023 Insurance Providers Payer Name Payer Address Payer Phone Subscriber Number Group Number Insured Name Patient Relationship to Insured Coverage Start Date Coverage End Date [facility] [address] [address] [place] [address] [id number] AUGUST, JUAN C Self - patient is the insured MEDICAID OF [facility] [address] [place] [address] [id number] AUGUST, JUAN C Self - patient is the insured Medical (General) History Medical History History ICD Code Most recent colonoscopy was in 02/2015--no active colitis and no dysplasia, no polyps HIV infection, diagnosed in the -s ees Dr. Robert Asthma Hyperlipidemia Bipolar disease/Depression Ulcerative colitis--diagnose d in 1996-pancolitis--colonoscopies in 2004, 2008, 2011, 2014; negative colonoscopy in 2019 and 04/2023--no active colitis, no polyps, bx neg. for dysplasia Denies OR,DM,CVA,renal disease Urinary incontinence-mild Surgical History Surgery Date(Month/Year)
== END 2025-01-18 09:35 | disposition home or self-care (01) ==
LOC: HO.HMCH 08:34
PROVIDERS: PCP Internal Medicine; Visit Provider Internal Medicine
DX: Z00.00 Encounter for general adult medical examination without abnormal findings (principal); J44.9 Chronic obstructive pulmonary disease, unspecified; Z21 Asymptomatic human immunodeficiency virus [HIV] infection status; F31.60 Bipolar disorder, current episode mixed, unspecified; Z72.0 Tobacco use; K21.9 Gastro-esophageal reflux disease without esophagitis

== ENCOUNTER → 2025-01-18 08:33 | Outpatient (BNVA) | payer OTHER, MEDICAID, SELFPAY | PROVIDERS: PCP Internal Medicine; Visit Provider Internal Medicine | DX: Z00.00 Encounter for general adult medical examination without abnormal findings (principal); J44.9 Chronic obstructive pulmonary disease, unspecified; K21.9 Gastro-esophageal reflux disease without esophagitis; F31.60 Bipolar disorder, current episode mixed, unspecified; K51.90 Ulcerative colitis, unspecified, without complications; E78.00 Pure hypercholesterolemia, unspecified; Z21 Asymptomatic human immunodeficiency virus [HIV] infection status; Z72.0 Tobacco use | CPT/HCPCS: 96127 ==

== ENCOUNTER 2025-04-11 15:26 | Outpatient (AMB) | payer OTHER, MEDICAID, SELFPAY ==
--- OUTSIDE RECORDS SUMMARY | 2024-06-22 10:20 | XMS_ITS ---
Author Organization [facility] Address [address] [place] [address] Care Team Providers Care Food Service Lead Name Role Phone Swapna Chin MD Primary Care Provider Marcus Dong [phone] REASON FOR VISIT ulcer of esophgaus w/o bleeding Encounters Encounter Location Date Provider Diagnosis [facility] [address] [facility] [address] [place] [address] 06/22/2024 Marcus Cam Plan Of Treatment No Information Progress Notes * YESSENIAJUAN C MDOB:1960 (64 yo F)Acc No.[id number]:06/22/2024 Progress Notes Patient: JUAN C ZAMBRANO Provider: Mariana Cam MD :1960 A ge:64 Y S ex:Female Date:06/22/2024 Address:[address] [place], [place] [phone] Pcp:Swapna Chin MD Subjective: * Chief Complaints: * U lcer of esophgaus w/o bleeding * The named appointment provid er may or may not be the originator of this progress note, and it is not deemed complete until electronically signed by the appointment provider. Sign off status: Pending * Provider: Mariana Cam MD Date: 0 06/22/2024 Generated for Printi ng/Faxing/eTransmitting on: 1 06/11/2024 07:01 PM EST
--- OUTSIDE RECORDS SUMMARY | 2024-12-30 07:00 | XMS_ITS ---
Author Organization [facility] Address [address] [place] [phone] Care Team Providers Care Hand Bookbinder Name Role Phone Swapna Chin MD Primary Care Provider Marcus Dong [phone] REASON FOR VISIT GERD Encounters Encounter Location Date Provider Diagnosis [facility] [place] [facility] Outpatient [address], [place] [phone] 12/30/2024 Marcus Cam Plan Of Treatment No Information Progress Notes * JUAN C CASAS MDOB:1960 (64 yo F)Acc No.[id number]:12/30/2024 EGD/MAC Patient: JUAN C ZAMBRANO Provider: Mariana Cam MD :1960 A ge:64 Y S ex:Female Date:12/30/2024 Address:[address] [place], [place] [phone] Pcp:Swapna Chin MD Subjective: * Chief Complaints: * G ERD Billing Information: * Procedure Codes: * The named appointment provid er may or may not be the originator of this progress note, and it is not deemed complete until electronically signed by the appointment provider. Sign off status: Pending * Provider: Mariana Cam MD Date: 0 12/30/2024 Generated for Isaiah goldberg/Yolis/eTransmitting on: 06/11/2024 07:01 PM EST
--- NOTE | 2025-04-11 15:30 | A.OFFPC_ITS ---
Intake Visit Reasons: Menopause issues Principal Archaeologist Required: No Accompanied by: Self / Same As Patient Allergies barium sulfate Allergy (Severe, Verified 04/11/25 15:31) suicide ideation varenicline (From CHANTIX) Allergy (Severe, Verified 04/11/25 15:31) DEPRESSION, suicidal ideation gabapentin Allergy (Unknown, Verified 04/11/25 15:31) Unknown Tobacco use date assessed: 04/11/25 Fall risk assessment: No Falls in past year Last assessed Fall Risk: 04/11/25 Dental Screening Dental Screen Date: 04/11/25 Did you have a dental visit in the last 12 months?: Yes Did you have a dental problem in the last 6 months where you did not have access to dental care?: No [facility] Medical History Asthma Cough HPV test positive Mixed incontinence Tobacco abuse Hypercholesterolemia HIV (human immunodeficiency virus infection) Bipolar disorder Ulcerative colitis Surgical History History of colonoscopy History of hemorrhoidectomy Family History Father No problems noted. Mother No problems noted. Social History Housing: Apartment Are you a primary clinical care leader to a significant other at home: No Do you presently have visiting nurse or other home services: No Alcohol intake: never Patient Tobacco Use Status: Current everyday Tobacco user Tobacco use type: Cigarette Cigarette Packs Per Day: 1 Cigarettes Per Day: 15 Years Smoked: stopped september and using vape- VAPE still e-Cigarette/Vaping Use: Never Used Second Hand Smoke Exposure: No service: No Current occupational status: unemployed Cognitive needs: No Hearing needs: No Vision needs: No Questionnaire PHQ-9 Over the last 2 weeks, how often have you been bothered by any of the following problems? 1. Little interest or pleasure in doing things: not at all 2. Feeling down, depressed, or hopeless: not at all 3. Trouble falling or staying asleep, or sleeping too much: not at all 4. Feeling tired or having little energy: not at all 5. Poor appetite or overeating: not at all 6. Feeling bad about yourself - or that you are a failure or have let yourself or your family down: not at all 7. Trouble concentrating on things, such as reading the newspaper or watching television: not at all 8. Moving or speaking so slowly that other people could have noticed. Or the opposite - being so fidgety or restless that you have been moving around a lot more than usual: not at all 9. Thoughts that you would be better off or of hurting yourself in some way: not at all Total score: 0 Source: Developed by Drs. Marcus Gonzalez, Chelsea Alcantara, Facundo Barnes and colleagues, with an educational arsen from [employer]. Thrive Questionnaire Date Thrive assessed: 04/11/25 I am a: Patient What is your living situation today?: I choose not to answer this question Within the past 12 months, did the food you bought not last and you didn't have the money to get more?: I choose not to answer this question Within the past 12 months, did you worry whether your food would run out before you got money to buy more?: I choose not to answer this question Do you have trouble paying for medicines?: I choose not to answer this question Do you have trouble getting transportation to medical appointments?: No Do you have trouble paying your heating and electricity bill?: Yes Do you have trouble taking care of your child, family member or friend?: No Do you have trouble with day-to-day activities such as bathing, preparing meals, shopping, managing finances, etc.?: No Are you currently unemployed and looking for a job?: No Are you interested in more education?: No Please select the resources that you would like help with: Utilities Currently or been in a relationship where the following occur: No concerns reported THRIVE Score: 1 AUDIT C Alcohol Use Questionnaire (AUDIT-C) 1. How often do you have a drink containing alcohol?: Never 3. How often do you have six or more drinks on one occasion?: Never Total Score: 0 PHAM-7 AMB Questionnaire PHAM-7 Date PHAM - 7 assessed: 04/11/25 Feeling nervous, anxious, or on edge: 0 = Not at all Not being able to stop or control worryin = Not at all Worrying too much about different things: 0 = Not at all Trouble relaxin = Not at all Being so restless that it is hard to sit still: 0 = Not at all Becoming easily annoyed or irritable: 0 = Not at all Feeling afraid as if something awful might happen: 0 = Not at all Total PHAM-7 score (0-4 normal; 5-9 mild; 10-14 moderate; 15-21 severe): 0 Source: Developed by Drs. Marcus Gonzalez, Chelsea Alcantara, Facundo Barnes and colleagues, with an educational arsen from [employer]. Physical exam (Primary Care) Tobacco/Smoking Status: Tobacco use Status Tobacco use date assessed 01/18/25 01/18/25 08:48 Patient Tobacco Use Status Current everyday Tobacco 01/18/25 09:18 Tobacco use type Cigarette 01/18/25 09:18 e-Cigarette/Vaping Use Never Used 01/18/25 09:18 Thrive Assessment: Date of Thrive Assessment Date Thrive assessed 01/18/25 04/11/25 15:26 Currently or been in a relationship where the following occur: No concerns reported Coding
--- NOTE | 2025-04-11 15:33 | MHC.PC.OV ---
Vital Signs 04/11/25 15:47 Weight 143 lb BP 128/80 Blood Pressure Location Lt brachial Position Sitting Pulse 103 H Pulse Source Pulse Oximeter Temp 97.1 F Temp Source Temporal Artery Scan Pulse Oximetry (%) 97 Oxygen Delivery Method Room Air Intake Visit Reasons: Menopause issues Education Administrative Assistant Required: No Accompanied by: Self / Same As Patient Allergies barium sulfate Allergy (Severe, Verified 04/11/25 15:31) suicide ideation varenicline (From CHANTIX) Allergy (Severe, Verified 04/11/25 15:31) DEPRESSION, suicidal ideation gabapentin Allergy (Unknown, Verified 04/11/25 15:31) Unknown Medication List - Last Reconciled 04/11/25 by Angella Aranda MD albuterol sulfate 90 mcg/actuation (Ventolin HFA) 2 puffs inhalation Q6H PRN sdqzzokvh-tnogzqhd-myitpav ala 50-200-25 mg (Biktarvy) 1 tab PO DAILY 30 days blood pressure monitor (Blood Pressure Kit) As directed clonazepam 1 mg PO DAILY fluticasone furoate-vilanterol 200-25 mcg/dose (Breo Ellipta) 1 inh inhalation DAILY naproxen 500 mg PO BID PRN omeprazole 20 mg PO DAILY simvastatin 5 mg PO BEDTIME Tobacco use date assessed: 04/11/25 Dental Screening Dental Screen Date: 04/11/25 Did you have a dental visit in the last 12 months?: Yes Did you have a dental problem in the last 6 months where you did not have access to dental care?: No HPI HPI Comments History of Present Illness Details Patient is a 64-year-old female presenting with joint pain. The patient is a 64 year old individual presenting with joint pain. The patient reports the onset of joint pain approximately two months ago, affecting the bilateral shoulders and hips, without a specific inciting trauma or event. The pain is worse in the left shoulder than the right, and worse in the right hip than the left. The patient describes the pain as a constant, debilitating ache, rating it a steady 6 out of 10 throughout the day. The pain radiates from the right hip down to the knee and from the left shoulder into the arm and elbow. Movement and walking worsen the pain, and the patient has not found relief with 800 mg of ibuprofen. Associated symptoms include morning stiffness in the affected joints and a feeling of weakness or lameness in the arm upon waking. Patient reports she is active at baseline and does a lot of walking and yd work. She does not currently exercise though. Patient reports that she self discontinued fluoxetine and lamotrigine, previously taken for depression anxiety, approximately 2.5 months ago due to a perceived lack of efficacy. Current medications include an albuterol inhaler as needed, Biktarvy, clonazepam 1 mg daily, omeprazole 20 mg, and simvastatin 5 mg. [facility] Medical History Asthma Cough HPV test positive Mixed incontinence Tobacco abuse Hypercholesterolemia HIV (human immunodeficiency virus infection) Bipolar disorder Ulcerative colitis Surgical History History of colonoscopy History of hemorrhoidectomy Family History Father No problems noted. Mother No problems noted. Social History Housing: Apartment Are you a primary critical care physician assistant to a significant other at home: No Do you presently have visiting nurse or other home services: No Alcohol intake: never Patient Tobacco Use Status: Current everyday Tobacco user Tobacco use type: Cigarette Cigarette Packs Per Day: 1 Cigarettes Per Day: 15 Years Smoked: stopped september and using vape- VAPE still e-Cigarette/Vaping Use: Never Used Second Hand Smoke Exposure: No service: No Current occupational status: unemployed Cognitive needs: No Hearing needs: No Vision needs: No Questionnaire PHQ-9 Over the last 2 weeks, how often have you been bothered by any of the following problems? 1. Little interest or pleasure in doing things: not at all 2. Feeling down, depressed, or hopeless: not at all 3. Trouble falling or staying asleep, or sleeping too much: not at all 4. Feeling tired or having little energy: not at all 5. Poor appetite or overeating: not at all 6. Feeling bad about yourself - or that you are a failure or have let yourself or your family down: not at all 7. Trouble concentrating on things, such as reading the newspaper or watching television: not at all 8. Moving or speaking so slowly that other people could have noticed. Or the opposite - being so fidgety or restless that you have been moving around a lot more than usual: not at all 9. Thoughts that you would be better off or of hurting yourself in some way: not at all Total score: 0 Depression Screening Interpretation: Negative Depression Screening Done: Yes Source: Developed by Drs. Marcus Gonzalez, Chelsea Alcantara, Facundo Barnes and colleagues, with an educational arsen from [employer]. Thrive Questionnaire Date Thrive assessed: 04/11/25 I am a: Patient What is your living situation today?: I choose not to answer this question Within the past 12 months, did the food you bought not last and you didn't have the money to get more?: I choose not to answer this question Within the past 12 months, did you worry whether your food would run out before you got money to buy more?: I choose not to answer this question Do you have trouble paying for medicines?: I choose not to answer this question Do you have trouble getting transportation to medical appointments?: No Do you have trouble paying your heating and electricity bill?: Yes Do you have trouble taking care of your child, family member or friend?: No Do you have trouble with day-to-day activities such as bathing, preparing meals, shopping, managing finances, etc.?: No Are you currently unemployed and looking for a job?: No Are you interested in more education?: No Please select the resources that you would like help with: Utilities Currently or been in a relationship where the following occur: No concerns reported THRIVE Score: 1 AUDIT C Alcohol Use Questionnaire (AUDIT-C) 1. How often do you have a drink containing alcohol?: Never 3. How often do you have six or more drinks on one occasion?: Never Total Score: 0 PHAM-7 AMB Questionnaire PHAM-7 Date PHAM - 7 assessed: 04/11/25 Feeling nervous, anxious, or on edge: 0 = Not at all Not being able to stop or control worryin = Not at all Worrying too much about different things: 0 = Not at all Trouble relaxin = Not at all Being so restless that it is hard to sit still: 0 = Not at all Becoming easily annoyed or irritable: 0 = Not at all Feeling afraid as if something awful might happen: 0 = Not at all Total PHAM-7 score (0-4 normal; 5-9 mild; 10-14 moderate; 15-21 severe): 0 Source: Developed by Drs. Marcus Gonzalez, Chelsea Alcantara, Facundo Barnes and colleagues, with an educational arsen from [employer]. Physical exam (Primary Care) Vital Signs: Last Vital Signs Temp 97.1 F 04/11/25 15:47 Pulse 103 H 04/11/25 15:47 BP 128/80 04/11/25 15:47 Pulse Ox 97 04/11/25 15:47 Oxygen Delivery Method Room Air 04/11/25 15:47 General: Well-appearing, alert, oriented ?3, in no acute distress. Cardiovascular: RRR, S1-S2 appreciated, no murmurs, rubs or gallops. Respiratory: Lungs clear to auscultation bilaterally, no wheezes, rales or rhonchi. MSK: Limited range of motion bilateral shoulders due to pain, inability to complete 4 backward motion. An audible click was noted with movement. No pain on passive range of motion. Tenderness to palpation of the left shoulder. Full range of motion in bilateral hips, however with pain. Neurologic: Sensation was intact and symmetric in upper and lower extremities. Motor strength was 5/5 and symmetric in upper and lower extremities against resistance. Tobacco/Smoking Status: Tobacco use Status Tobacco use date assessed 04/11/25 04/11/25 15:41 Patient Tobacco Use Status Current everyday Tobacco 04/11/25 15:41 Tobacco use type Cigarette 04/11/25 15:41 e-Cigarette/Vaping Use Never Used 04/11/25 15:41 PHQ-9: PHQ-9 Score PHQ-9: Total score 0 04/11/25 16:24 Depression Screening Interpretation: Negative Thrive Assessment: Date of Thrive Assessment Date Thrive assessed 04/11/25 04/11/25 15:41 Currently or been in a relationship where the following occur: No concerns reported Coding Level of Care Code Est Pt Level 4 (22844) Diagnoses Bilateral shoulder pain, unspecified chronicity M25.511; M25.512 Chronicity: unspecified Hip pain, bilateral M25.551; M25.552 Menopausal symptoms N95.1 Assessment & Plan Assessment & Plan (1) Shoulder pain, bilateral: Code(s): M25.511 - Pain in right shoulder; M25.512 - Pain in left shoulder Category: Medical Qualifiers: Chronicity: unspecified Qualified Code(s): M25.511 - Pain in right shoulder; M25.512 - Pain in left shoulder Plan: Patient presenting with bilateral shoulder pain left worse than right for 2 months with intact neurological exam. Differential diagnosis include osteoarthritis, polymyalgia rheumatica. Obtain ESR, and x-rays of shoulders. Naproxen 500 mg twice a day as needed for pain. Avoid taking with other NSAIDs like ibuprofen, take with food and water. Referral to Physical therapy for further evaluation and treatment (2) Hip pain, bilateral: Code(s): M25.551 - Pain in right hip; M25.552 - Pain in left hip Category: Medical Plan: Bilateral hip pain for 2 months. Obtain x-rays of bilateral hips, pain management as above. Physical therapy for further treatment. (3) Menopausal symptoms: Code(s): N95.1 - Menopausal and female climacteric states Plan: Patient interested in hormone replacement therapy. She is already established with [facility], last seen in the imaged in 2024. Patient advised to schedule an appointment to further discuss her options. Orders: Orders PT Evaluation and Treatment Today M25.511 - Pain in right shoulder, M25.512 - Pain in left shoulder, M25.551 - Pain in right hip, M25.552 - Pain in left hip Erythrocyte Sedimentation Rate Today M25.50 - Pain in unspecified joint XR Shoulder Cortez min 2V Today M25.519 - Pain in unspecified shoulder XR hips CORTEZ min 3V Today M25.559 - Pain in unspecified hip Medications: New naproxen 500 mg PO BID PRN 30 tabs 0RF pain
[2025-04-11 15:47] VITALS: BP 128/80; PULSE 103; TEMP 36.2; O2SAT 97
--- OUTSIDE RECORDS SUMMARY | 2025-04-11 19:02 | XMS_ITS | Patient Health Record ---
Author Organization [facility] Address [address] [place] [id number] Care Team Providers Care Student Liaison Officer Name Role Phone Swapna Chin MD Primary Care Provider Marcus Dong [phone] Allergies Allergen (clinical drug ingredient) Drug/Non Drug Allergy documented on EMR Reaction Allergy Type Onset Date Status varenicline Chantix Unknown Drug Allergy Activ e Results Component Value Reference Range Notes Pathology (Not yet reviewed by provider) Interpretation: Performing Lab:[facility], [address] [place] [id number] Notes/Report: Reason For Referral No Information Medications Medication SIG (Take, Route, Frequency, Duration) Notes Start Date End Date Status Breo Ellipta 100-25 MCG/ACT Aerosol Powder Breath Activated 1 puff Inhalation Once a day Active Albuterol Sulfate HFA 108 (90 Base) MCG/ACT Aerosol Solution 1 puff as needed Inhalation every 4 hrs Active Biktarvy 50-200-25 MG Tablet 1 tablet Orally Once a day; Duration: 30 day(s) Active clonazePAM 1 MG Tablet 1 tablet Orally O nce a day Active lamoTRIgine 200 MG Tablet 1 tablet Orall y Twice a day; Duration: 30 day(s) Active FLUoxetine HCl 40 MG Capsule 1 tablet in the morning Orally Once a day Active Simvastatin 20 MG Tablet 1 tablet in the evening Orally Once a day Active Omeprazole 20 MG Capsule Delayed Release 1 capsule 1/2 to 1 hour before morning meal Orally Once a day Active Meloxicam 7.5 MG Tablet 1 tablet Orally Once a day Active Immunizations Vaccine Route Administration Date Status Comme nts Influenza Unknown 10/05/2018 Refused Influenza Unknown 10/05/2024 Refused Social History Social History Drugs/Alcohol: Social Info Question Answer Notes Alcohol Screen Did you have a drink containing alcohol in the past year? No Points 0 Interpretation Negative Additional Details Category Social Info Options Details Miscellaneous: Marital status: Occupation: Retired Section Notes: She smokes, and denies alcoh [...] Problem Status W/U Status Risk Notes Problem Screening for malignant neoplasm of colon (559451431) Encounter for screening for malignant neoplasm of colon (Z12.11) Active confirmed Problem Diverticular disease of colon (671554078) Diverticulosis of large intestine without perforation or abscess without bleeding (K57.30) Active confirmed Problem Gastroesophageal reflux disease (750347436) GERD (gastroesophageal reflux disease) (K21.9) Active confirmed Problem Chronic ulcerative pancolitis (124459643) Ulcerative pancolitis without complication (K51.00) Active confirmed Problem Ulcerative pancolitis (188419591) Ulcerative pancolitis (K51.00) Active confirmed Vital Signs Temperature 95.9 degrees Fahrenheit 10/05/2024 Blood pressure diastolic 01 mm Hg 10/05/2024 Height 69.5 in 10/05/2024 Blood pressure systolic 001 mm Hg 10/05/2024 Weight 142.4 lbs 10/05/2024 BMI 20.73 kg/m2 10/05/2024 Procedures Procedure Date Ordered Date Performed Result Body Sit e UPPER GI ENDOSCOPY 10/05/2024 N/A Encounters Encounter Location Date Provider Diagnosis [facility] [address] [place] [id number] 12/30/2024 Marcus Cam [facility] [address] [place] [phone] 10/05/2024 Marcus Cam GERD (gastroesophageal reflux disease) K21.9 [facility] [address] [place] [phone] 06/02/2024 Marcus Cam Assessments Encounter Date Diagnosis (ICD Code) Assessment Notes Treatment Notes Treatment Clinical Notes Section Notes 10/05/2024 GERD (gastroesophag eal reflux disease) (ICD-10 - K21.9) Overall, Tabatha appears well. Her ulcerative colitis remains in [...] continue to avoid smoking and minimize caffeine. Tabatha was comfortable with this plan. Thank you again for allowing me to participate in Tabatha's care. I shall continue to keep you [...] Insured Coverage Start Date Coverage End Date [facility] [address] [address] DONI DawoodARIEL [id number] AUGUST, TABATHA Self - patient is the insured MEDICAID OF [facility] [address] [place] [address] [id number] AUGUST, TABATHA Self - patient is the insured Medical [...] no polyps, bx neg. for dysplasia Denies CT,DM,CVA,renal disease Urinary incontinence-mild Surgical History Surgery Date(Month/Year)
== END 2025-04-11 16:26 | disposition home or self-care (01) ==
LOC: HO.HMCH 15:27
PROVIDERS: PCP Internal Medicine; Visit Provider Student in an Organized Health Care Education/Training Program
DX: M25.511 Pain in right shoulder (principal); M25.512 Pain in left shoulder; M25.551 Pain in right hip; M25.552 Pain in left hip; N95.1 Menopausal and female climacteric states

== ENCOUNTER 2025-04-12 13:55 | Outpatient (REF) | payer OTHER, MEDICAID, SELFPAY ==
--- OUTSIDE RECORDS SUMMARY | 2024-06-22 10:20 | XMS_ITS ---
Author Organization [facility] Address [address] [place] [address] Care Team Providers Care Supervisor Fertilizer Name Role Phone Swapna Chin MD Primary Care Provider Marcus Dong [phone] REASON FOR VISIT ulcer of esophgaus w/o bleeding Encounters Encounter Location Date Provider Diagnosis [facility] [address] [facility] [address] [place] [address] 06/22/2024 Marcus Cam Plan Of Treatment No Information Progress Notes * YESSENIAJUAN C MDOB:1960 (64 yo F)Acc No.[id number]:06/22/2024 Progress Notes Patient: JUAN C ZAMBRANO Provider: Mariana Cam MD :1960 A ge:64 Y S ex:Female Date:06/22/2024 Address:[address] [place], [place] [phone] Pcp:Swapna Chin MD Subjective: * Chief Complaints: * U lcer of esophgaus w/o bleeding * The named appointment provid er may or may not be the originator of this progress note, and it is not deemed complete until electronically signed by the appointment provider. Sign off status: Pending * Provider: Mariana Cam MD Date: 0 06/22/2024 Generated for Printi ng/Faxing/eTransmitting on: 1 06/12/2024 04:57 PM EST
--- OUTSIDE RECORDS SUMMARY | 2024-12-30 07:00 | XMS_ITS ---
Author Organization [facility] Address [address] [place] [phone] Care Team Providers Care Layout Artist Name Role Phone Swapna Chin MD Primary Care Provider Marcus Dong [phone] REASON FOR VISIT GERD Encounters Encounter Location Date Provider Diagnosis [facility] Outpatient [address] [place] [id number] 12/30/2024 Marcus Cam Plan Of Treatment No Information Progress Notes * JUAN C CASAS MDOB:1960 (64 yo F)Acc No.[id number]:12/30/2024 EGD/MAC Patient: JUAN C ZAMBRANO Provider: Mariana Cam MD :1960 A ge:64 Y S ex:Female Date:12/30/2024 Address:[address] [place], [place] [phone] Pcp:Swapna Chin MD Subjective: * Chief Complaints: * G ERD Billing Information: * Procedure Codes: * The named appointment provid er may or may not be the originator of this progress note, and it is not deemed complete until electronically signed by the appointment provider. Sign off status: Pending * Provider: Mariana Cam MD Date: 0 12/30/2024 Generated for Isaiah goldberg/Yolis/eTransmitting on: 06/12/2024 04:57 PM EST
--- NOTE | ~2025-04-12 | XR_ITS ---
EXAMINATION: XR SHOULDER 2 OR MORE VIEWS BILATERAL HISTORY: M25.519 - Pain in unspecified shoulder COMPARISON: Correlation is made with the prior examination of the left shoulder dated 10/25/2021. FINDINGS: Eight views of the bilateral shoulders are submitted. Osseous mineralization is normal. There is no fracture or dislocation. The glenohumeral joints are maintained. There is mild degenerative change of the right AC joint. The left AC joint is maintained. There are old healed left rib fractures. The soft tissues are unremarkable. XR/XR Shoulder Waldemar min 2V IMPRESSION: Mild degenerative change of the right AC joint. Electronically signed by: Marcus Dunaway MD 04/12/2025 02:48 PM EST
--- NOTE | ~2025-04-12 | XR_ITS ---
EXAMINATION: XR BILATERAL HIPS CLINICAL INFORMATION: M25.559 - Pain in unspecified hip COMPARISON: None available. TECHNIQUE: Right hip 2 views. Left hip 2 views. FINDINGS: Right hip: No fracture. Hip joint space is maintained. Alignment is anatomic. No acute fracture or dislocation. Apparent lucency in the medial aspect of the femoral neck, could be related to overlapping densities versus lucent focus in this region. No abnormal soft tissue calcifications. Left hip: Hip joint space is maintained. Alignment is anatomic. No acute fracture or dislocation. Apparent lucency in the medial aspect of the femoral neck, could be related to overlapping densities versus lucent focus in this region. No abnormal soft tissue calcification. XR/XR hips CORTEZ min 3V IMPRESSION: * No acute osseous abnormality. * Apparent lucency in the medial aspect of bilateral femoral necks. This could be related to overlapping densities versus lucent focus in this region. Recommend pelvic x-ray for further evaluation. Electronically signed by: Smith Tarango MD 04/14/2025 12:14 PM [facility]
--- OUTSIDE RECORDS SUMMARY | 2025-04-12 17:00 | XMS_ITS | Patient Health Record ---
Author Organization [facility] Address [address] [place] [phone] Care Team Providers Care Oil Well Services Dispatcher Name Role Phone Swapna Chin MD Primary Care Provider Marcus Dong [phone] Allergies Allergen (clinical drug ingredient) Drug/Non Drug Allergy documented on EMR Reaction Allergy Type Onset Date Status varenicline Chantix Unknown Drug Allergy Activ e Results Component Value Reference Range Notes Pathology (Not yet reviewed by provider) Interpretation: Performing Lab:[facility], [address] [place] [phone] Notes/Report: Reason For Referral No Information Medications [...] Problem Screening for malignant neoplasm of colon (378291710) Encounter for screening for malignant neoplasm of colon (Z12.11) Active confirmed Problem Diverticular disease of colon (113113793) Diverticulosis of large intestine without perforation or abscess without bleeding (K57.30) Active confirmed Problem Gastroesophageal reflux disease (743150734) GERD (gastroesophageal reflux disease) (K21.9) Active confirmed Problem Chronic ulcerative pancolitis (435893921) Ulcerative pancolitis without complication (K51.00) Active confirmed Problem Ulcerative pancolitis (382760257) Ulcerative pancolitis (K51.00) Active confirmed Vital Signs Temperature 95.9 degrees Fahrenheit 10/05/2024 Blood pressure diastolic 01 mm Hg 10/05/2024 Height 69.5 in 10/05/2024 Blood pressure systolic 001 mm Hg 10/05/2024 Weight 142.4 lbs 10/05/2024 BMI 20.73 kg/m2 10/05/2024 Procedures Procedure Date Ordered Date Performed Result Body Sit e UPPER GI ENDOSCOPY 10/05/2024 N/A Encounters Encounter Location Date Provider Diagnosis [facility] Out[facility] [address] [place] [id number] 12/30/2024 Marcus Cam [facility] [address] [place] [phone] 10/05/2024 Marcus Cam GERD (gastroesophageal reflux disease) K21.9 [facility] [address] [place] [phone] 06/02/2024 Marucs Cam Assessments Encounter Date Diagnosis (ICD Code) [...] Insured Coverage Start Date Coverage End Date [facility] [address] [address] DONI DawoodARIEL [id number] AUGUST, TABATHA Self - patient is the insured MEDICAID OF [facility] [address] [place] [address] [id number] AUGUST, TABATHA Self - patient is the [...] no polyps, bx neg. for dysplasia Denies VT,DM,CVA,renal disease Urinary incontinence-mild Surgical History Surgery Date(Month/Year)
== END 2025-04-12 13:56 | disposition home or self-care (01) ==
LOC: HO.LAB 13:55
PROVIDERS: PCP Internal Medicine; Visit Provider Student in an Organized Health Care Education/Training Program
DX: M25.552 Pain in left hip (principal); M25.551 Pain in right hip; M25.512 Pain in left shoulder; M25.511 Pain in right shoulder
CPT/HCPCS: 36415; 73030; 73522; 85652

== ENCOUNTER → 2025-04-12 14:13 | Outpatient (BNV) | payer OTHER, MEDICAID, SELFPAY | PROVIDERS: PCP Internal Medicine; Visit Provider Radiology Diagnostic Radiology | DX: M19.011 Primary osteoarthritis, right shoulder (principal); M25.511 Pain in right shoulder; M25.512 Pain in left shoulder | CPT/HCPCS: 73030 ==

== ENCOUNTER 2025-05-03 12:10 | Outpatient (REF) | payer MEDICARE, MEDICAID, SELFPAY ==
--- OUTSIDE RECORDS SUMMARY | 2024-06-22 10:20 | XMS_ITS ---
Author Organization [facility] Address [address] [place] [address] Care Team Providers Care Chief Payroll Clerk Name Role Phone Swapna Chin MD Primary Care Provider Marcus Dong [phone] REASON FOR VISIT ulcer of esophgaus w/o bleeding Encounters Encounter Location Date Provider Diagnosis [facility] [address] [facility] [address] [place] [address] 06/22/2024 Marcus Cam Plan Of Treatment No Information Progress Notes * YESSENIAJUAN C MDOB:1960 (65 yo F)Acc No.[id number]:06/22/2024 Progress Notes Patient: JUAN C ZAMBRANO Provider: Mariana Cam MD :1960 A ge:64 Y S ex:Female Date:06/22/2024 Address:[address] [place], [place] [phone] Pcp:Swapna Chin MD Subjective: * Chief Complaints: * U lcer of esophgaus w/o bleeding * The named appointment provid er may or may not be the originator of this progress note, and it is not deemed complete until electronically signed by the appointment provider. Sign off status: Pending * Provider: Mariana Cam MD Date: 0 06/22/2024 Generated for Printi ng/Faxing/eTransmitting on: 1 07/04/2024 04:02 PM EST
--- OUTSIDE RECORDS SUMMARY | 2024-12-30 07:00 | XMS_ITS ---
Author Organization [facility] Address [address] [place] [phone] Care Team Providers Care Appraiser Timber Name Role Phone Swapna Chin MD Primary Care Provider Marcus Dong [phone] REASON FOR VISIT GERD Encounters Encounter Location Date Provider Diagnosis [facility] Outpatient [address] [place], [place] [phone] 12/30/2024 Marcus Cam Plan Of Treatment No Information Progress Notes * JUAN C CASAS MDOB:1960 (65 yo F)Acc No.[id number]:12/30/2024 EGD/MAC Patient: JUAN C ZAMBRANO Provider: Mariana Cam MD :1960 A ge:64 Y S ex:Female Date:12/30/2024 Address:[address] [place], [place] [phone] Pcp:Swapna Chin MD Subjective: * Chief Complaints: * G ERD Billing Information: * Procedure Codes: * The named appointment provid er may or may not be the originator of this progress note, and it is not deemed complete until electronically signed by the appointment provider. Sign off status: Pending * Provider: Mariana Cam MD Date: 0 12/30/2024 Generated for Isaiah goldberg/Yolis/eTransmitting on: 1 07/04/2024 04:01 PM EST
--- NOTE | ~2025-05-03 | XR_ITS ---
EXAMINATION: XR PELVIS 1-2 VIEWS HISTORY: M25.559 - Pain in unspecified hip COMPARISON: Comparison is made with the prior examination of the bilateral hips dated 04/12/2025. FINDINGS: A single AP view of the pelvis is submitted. The bones are osteopenic. There is no fracture or dislocation. There is mild narrowing of both hip joints. The sacroiliac joints are maintained. The soft tissues are unremarkable. XR/XR pelvis 1-2V IMPRESSION: Osteopenia. Mild narrowing of both hip joints. Electronically signed by: Marcus Dunaway MD 05/03/2025 12:30 PM [facility]
--- OUTSIDE RECORDS SUMMARY | 2025-05-03 16:02 | XMS_ITS | Patient Health Record ---
Author Organization [facility] Address [address] [place] [id number] Care Team Providers Care Float Remover Name Role Phone Swapna Chin MD Primary Care Provider Marcus Dong [phone] Allergies Allergen (clinical drug ingredient) Drug/Non Drug Allergy documented on EMR Reaction Allergy Type Onset Date Status varenicline Chantix Unknown Drug Allergy Activ e Results Component Value Reference Range Notes Pathology (Not yet reviewed by provider) Interpretation: Performing Lab:[facility], [address] [place] [phone] Notes/Report: Reason For Referral No Information Medications [...] Problem Screening for malignant neoplasm of colon (857162262) Encounter for screening for malignant neoplasm of colon (Z12.11) Active confirmed Problem Diverticular disease of colon (145963411) Diverticulosis of large intestine without perforation or abscess without bleeding (K57.30) Active confirmed Problem Gastroesophageal reflux disease (631356778) GERD (gastroesophageal reflux disease) (K21.9) Active confirmed Problem Chronic ulcerative pancolitis (023933377) Ulcerative pancolitis without complication (K51.00) Active confirmed Problem Ulcerative pancolitis (715380642) Ulcerative pancolitis (K51.00) Active confirmed Vital Signs Temperature 95.9 degrees Fahrenheit 10/05/2024 Blood pressure diastolic 01 mm Hg 10/05/2024 Height 69.5 in 10/05/2024 Blood pressure systolic 001 mm Hg 10/05/2024 Weight 142.4 lbs 10/05/2024 BMI 20.73 kg/m2 10/05/2024 Procedures Procedure Date Ordered Date Performed Result Body Sit e UPPER GI ENDOSCOPY 10/05/2024 N/A Encounters Encounter Location Date Provider Diagnosis [facility] [place] Outpatient [address] [place] [id number] 12/30/2024 Marcus Cam [facility] [address] [place] [phone] 10/05/2024 Marcus Cam GERD (gastroesophageal reflux disease) K21.9 [facility] [address] [place] [phone] 06/02/2024 Marcus Cam Assessments Encounter Date Diagnosis [...] Insured Coverage Start Date Coverage End Date [facility] [address] [address] DONI DawoodARIEL [id number] AUGUST, TABATHA Self - patient is the insured MEDICAID OF [facility] [address] [place] [address] [id number] AUGUST, TABATHA Self - patient is the [...] no polyps, bx neg. for dysplasia Denies CO,DM,CVA,renal disease Urinary incontinence-mild Surgical History Surgery Date(Month/Year)
== END 2025-05-03 12:11 ==
LOC: HO.XRAY 12:10
PROVIDERS: PCP Internal Medicine; Visit Provider Student in an Organized Health Care Education/Training Program
DX: M85.88 Other specified disorders of bone density and structure, other site (principal); M87.9 Osteonecrosis, unspecified
CPT/HCPCS: 72170

== ENCOUNTER → 2025-05-03 12:15 | Outpatient (BNV) | payer MEDICARE, MEDICAID, SELFPAY | PROVIDERS: PCP Internal Medicine; Visit Provider Radiology Diagnostic Radiology | DX: M16.0 Bilateral primary osteoarthritis of hip (principal); M85.88 Other specified disorders of bone density and structure, other site | CPT/HCPCS: 72170 ==